=== PATIENT | female | born 1955 | race Caucasian/White ===

== ENCOUNTER 2021-03-13 12:38 | Outpatient (CLI) | payer MEDICARE, MEDICAID, SELFPAY ==
--- NOTE | ~2021-03-13 | XR_ITS ---
EXAMINATION: XR lg joint inject/asp w image DATE: 03/13/2021 13:49 INDICATION: Left frozen shoulder with chronic left shoulder pain and decreased range of motion TECHNIQUE: A time-out was performed to verify the patient's name, date of , and procedure to b e performed. The procedure including the risks, benefits, and alternatives was discussed with the pat ient. Risks discussed included bleeding and infection. The patient understood the risks and agreed to proceed. The skin overlying the rotator cuff interval of the left glenohumeral joint was prepped an d draped in usual sterile fashion. Anesthetic was administered with 1% lidocaine subcutaneously. A 22 G needle was advanced under fluoroscopic guidance into the joint. Injection of 1 mL of Omnipaque 240 confirmed intra-articular position of the needle. Subsequently, injectate consisting of 6 mL of a 2:1 mixture of 1% lidocaine: 40 mg/mL Depo-Medrol was instilled for a total dose of 80 mg Depo-Medr ol. Washout of contrast was seen confirming intra-articular administration. The needle was removed an d the entry site was cleaned and dressed. There were no immediate complications. Fluoroscopy exposur e time was 0.1 minutes. FINDINGS: Real-time fluoroscopy demonstrates the needle in the left glenohumeral joint. Patient's sandoval n prior to procedure:8/10. Patient's pain following the procedure: /. IMPRESSION: 1. Left glenohumeral injection of local anesthetic and steroid with decrease in the patient's present ing pain. Reviewed, dictated and finalized at location A. ISITION ANALYST IMPRESSION: 1. Left glenohumeral injection of local anesthetic and steroid with decrease in the patient's presenting pain.
== END 2021-03-13 12:39 | disposition home or self-care (01) ==
LOC: ANHIMG 12:44
PROVIDERS: Visit Provider Orthopaedic Surgery
DX: M75.02 Adhesive capsulitis of left shoulder (principal)
CPT/HCPCS: 20610; 77002; J1030; Q9966

== ENCOUNTER 2021-07-01 09:34 | Outpatient (CLI) | payer MEDICARE, MEDICAID, SELFPAY ==
--- NOTE | ~2021-07-01 | XR_ITS ---
. EXAMINATION: XR lg joint inject/asp w image DATE: 07/01/2021 10:36 INDICATION: Left frozen shoulder TECHNIQUE: A time-out was performed to verify the patient's name, date of , and procedure to b e performed. The procedure including the risks, benefits, and alternatives was discussed with the pat ient. Risks discussed included bleeding and infection. The patient understood the risks and agreed to proceed. The skin overlying the rotator cuff interval of the left glenohumeral joint was prepped an d draped in usual sterile fashion. Anesthetic was administered with 1% lidocaine subcutaneously. A 22 G needle was advanced under fluoroscopic guidance into the joint. Injection of 1 mL of Omnipaque 240 confirmed intra-articular position of the needle. Subsequently, injectate consisting of 4 mL a 3 :1 mixture of 1% lidocaine: 80 mg/mL Depo-Medrol for a total dose of 80 mg Depo-Medrol was instilled. Washout of contrast was seen confirming intra-articular administration. The needle was removed and t he entry site was cleaned and dressed. There were no immediate complications. Fluoroscopy exposure t toby was 0.1 minutes. The total number of images was 2. FINDINGS: Real-time fluoroscopy demonstrates the needle in the left glenohumeral joint. Patient's sandoval n prior to procedure:10. Patient's pain following the procedure: 08/08. IMPRESSION: 1. Left glenohumeral joint injection of local anesthetic and steroid with decrease in the patient's p resenting pain. Reviewed, dictated and finalized at location A. IMPRESSION: 1. Left glenohumeral joint injection of local anesthetic and steroid with decre ase in the patient's presenting pain.
== END 2021-07-01 09:35 | disposition home or self-care (01) ==
PROVIDERS: PCP Internal Medicine; Visit Provider Orthopaedic Surgery
DX: M25.512 Pain in left shoulder (principal)
CPT/HCPCS: 20610; 77002; J1040; Q9966

== ENCOUNTER 2021-09-18 13:23 | Outpatient (CLI) | payer MEDICARE, MEDICAID, SELFPAY ==
--- NOTE | ~2021-09-18 | XR_ITS ---
EXAMINATION: XR lg joint inject/asp w image DATE: 09/18/2021 14:02 INDICATION: Left frozen shoulder TECHNIQUE: A time-out was performed to verify the patient's name, date of , and procedure to b e performed. The procedure including the risks, benefits, and alternatives was discussed with the pat ient. Risks discussed included bleeding and infection. The patient understood the risks and agreed to proceed. The skin overlying the rotator cuff interval of the left glenohumeral joint was prepped an d draped in usual sterile fashion. Anesthetic was administered with 1% lidocaine subcutaneously. A 22 G needle was advanced under fluoroscopic guidance into the joint. Injection of a small amount of gas was used to confirm intra-articular position of the needle. Subsequently, injectate consisting o f 2 mL of a 4:1 mixture of 1% lidocaine: 80 mg/mL Depo-Medrol for a total dosage of 80 mg Depo-Medrol was instilled. The needle was removed and the entry site was cleaned and dressed. There were no imm ediate complications. Fluoroscopy exposure time was 0.1 minutes. The total number of images was 1. FINDINGS: Real-time fluoroscopy demonstrates the needle and gas in the left glenohumeral joint. Patie nt's pain prior to procedure:8/10. Patient's pain following the procedure: /. IMPRESSION: 1. Successful left glenohumeral joint injection of local anesthetic and steroid with decrease in the patient's presenting pain. Reviewed, dictated and finalized at location A.
== END 2021-09-18 13:24 | disposition home or self-care (01) ==
PROVIDERS: PCP Internal Medicine; Visit Provider Orthopaedic Surgery
DX: M75.02 Adhesive capsulitis of left shoulder (principal)
CPT/HCPCS: 20610; 77002; J1040

== ENCOUNTER 2022-08-26 12:55 | Outpatient (CLI) | payer MEDICARE, MEDICAID, SELFPAY ==
--- NOTE | ~2022-08-26 | XR_ITS ---
EXAMINATION: XR lg joint inject/asp w image DATE: 08/26/2022 14:10 INDICATION: Frozen left shoulder TECHNIQUE: A time-out was performed to verify the patient's name, date of , and procedure to b e performed. The procedure including the risks, benefits, and alternatives was discussed with the pat ient. Risks discussed included bleeding and infection. The patient understood the risks and agreed to proceed. The skin overlying the rotator cuff interval of the left glenohumeral joint was prepped an d draped in usual sterile fashion. Anesthetic was administered with 1% lidocaine subcutaneously. A 22 G needle was advanced under fluoroscopic guidance into the joint. Injection of 1 mL of Omnipaque 240 confirmed intra-articular position of the needle. Subsequently, injectate consisting of 4 mL of a 3:1 mixture of 1% lidocaine: 80 mg/mL Depo-Medrol was instilled. Washout of contrast was seen confi rming intra-articular administration. The needle was removed and the entry site was cleaned and dress ed. There were no immediate complications. Fluoroscopy exposure time was 0.1 minutes. The total numb er of images was 2. FINDINGS: Real-time fluoroscopy demonstrates the needle in the left glenohumeral joint. Patient's sandoval n prior to procedure:8/10. Patient's pain following the procedure: 0/10. IMPRESSION: 1. Successful left glenohumeral joint injection of local anesthetic and steroid with decrease in the patient's presenting pain. Reviewed, dictated and finalized at location A.
== END 2022-08-26 12:56 | disposition home or self-care (01) ==
LOC: ANHIMG 12:59
PROVIDERS: PCP Internal Medicine; Visit Provider Orthopaedic Surgery
DX: M75.02 Adhesive capsulitis of left shoulder (principal)
CPT/HCPCS: 20610; 77002; J1040; Q9966

== ENCOUNTER 2023-06-04 13:50 | Outpatient (CLI) | payer MEDICARE, MEDICAID, SELFPAY ==
--- NOTE | ~2023-06-04 | DEXA_ITS ---
Bone Density Report Name: VICKIE FAULKNER Age: 68 Sex: Female Ethnicity: White Date of : 1955 Indication: postmenopausal; screening for osteoporosis; height loss; history of glucocorticoids; hysterectomy; Referring Provider: GALA RANGEL Study: Bone densitometry was performed. Exam Date: June 04, 2023 Accession number: [id number] Bone Density: Region BMD T-score Z-score Classification AP Spine(L1, L2) 0.965 -0.1 1.7 Normal Femoral Neck (Left) 0.544 -2.7 -1.1 Osteoporosis Total Hip (Left) 0.698 -2.0 -0.6 Osteopenia Femoral Neck (Right) 0.618 -2.1 -0.4 Osteopenia Total Hip (Right) 0.716 -1.9 -0.5 Osteopenia Total Hip Mean 0.707 -2.0 -0.6 Osteopenia World Health Organization criteria for BMD impression classify patients as: Normal (T-score at or above -1.0), Osteopenia (T-score between -1.0 and -2.5), or Osteoporosis (T-score at or below -2.5). 10-year Fracture Risk: FRAX not reported because: Some T-score for Spine Total or Hip Total or Femoral Neck at or below -2.5 Treated for osteoporosis Clinical Information Provided by Patient: Has taken Glucocorticoids Is being treated for osteoporosis Has used the following medications: Vitamin D, Calcium Has the following medical conditions: Hysterectomy Patient maximum height was 64.5 Menopause Age: 48 No regular weight bearing exercise Does not regularly consume dairy products Drinks caffeinated beverages Onset of menses at age 13 Number of children 2 Impression: The patient has osteoporosis, based on the Left Femoral Neck T-score. The patient has risk factors, including: history of glucocorticoid therapy. Discussion: It is important to ask patients whether they are taking their medications and to encourage continued and appropriate compliance with their osteoporosis therapies to reduce fracture risk. It is also important to review their risk factors and encourage appropriate calcium and vitamin D intakes, exercise, fall prevention and other lifestyle measures. Follow-Up: Consider a repeat BMD and Vertebral Fracture Assessment (VFA) exam in 2 years or sooner if medically necessary, to reassess this patient's status. Reported by: JUAN on 06/04/2023 3:06:00 PM. Reviewed, dictated and finalized at location AEileen MILLER
== END 2023-06-04 13:51 | disposition home or self-care (01) ==
LOC: ANHIMG 13:57
PROVIDERS: PCP Internal Medicine; Visit Provider Obstetrics & Gynecology Gynecology
DX: Z78.0 Asymptomatic menopausal state (principal); M81.0 Age-related osteoporosis without current pathological fracture; M85.852 Other specified disorders of bone density and structure, left thigh; M85.851 Other specified disorders of bone density and structure, right thigh
CPT/HCPCS: 77080

== ENCOUNTER 2024-01-07 13:58 | Outpatient (CLI) | payer MEDICARE, MEDICAID, SELFPAY ==
--- NOTE | ~2024-01-07 | CT_ITS ---
CT Scan of the Chest without Contrast: Clinical Indication: Neurogenic thoracic outlet syndrome Technique: Contiguous sections were acquired throughout the chest without intravenous contrast. Dose reduction technique was used on this scan by utilizing automated exposure control and iterative recon struction technique. The dose-length product (DLP) was 128.20 mGy-cm. Findings: There is no evidence of any significant mediastinal, hilar or axillary lymphadenopathy. There is ning re coronary artery calcifications, with probable prior CABG. There is no evidence of pleural or pericardial effusion. The lungs are clear. No pulmonary nodules or infiltrates are noted. Images through the upper abdomen reveal no abnormalities. Impression: No acute abnormality. Clear lungs. Prior CABG. Reviewed, dictated and finalized at location . CLING ASSISTANT Impression: No acute abnormality. Clear lungs. Prior CABG.
== END 2024-01-07 13:59 | disposition home or self-care (01) ==
PROVIDERS: PCP Internal Medicine; Visit Provider Internal Medicine
DX: G54.0 Brachial plexus disorders (principal)
CPT/HCPCS: 71250

== ENCOUNTER 2024-03-09 12:38 | Outpatient (CLI) | payer MEDICARE, MEDICAID, SELFPAY ==
--- NOTE | 2024-03-09 15:00 | NEURO_ITS ---
Clinical note: Patient is 68 years old with history of onset of paresthesias in her right upper limb following an injection in her right forearm 3 months ago. On a brief neurological examination no focal muscle wasting or fasciculations were seen. The results of the study are given below. Summary of findings 1. Right median and ulnar motor distal latency amplitude and conduction velocity were normal limits. 2. Right median and ulnar and radial sensory distal latencies amplitude and conduction velocity normal limits. 3. Right median antebrachial cutaneous sensory distal latency was normal however amplitude was mildly decreased. Right lateral antebrachial cutaneous sensory could not be obtained 3. EMG examination performed various muscles examined in the right upper limb from C5-T1 distribution which did not show any deep duration changes. Motor unit amplitude and duration and have recruitment pattern appear within normal limits. Impression EMG and nerve can study upper limb are considered essentially within acceptable normal limits. The studies on the right lateral and medial antebrachial cutaneous appear to be of limited significance since these can be technically difficult and should be compared with the left side for further evaluation. Ultrasound guided nerve conduction studies for upper limb may be helpful if clinically relevant Sung Prasad M.D,. Neurology Nerve Conduction Studies Motor Nerve Results ? Latency Amplitude F-Lat Segment Distance CV Comment Site (ms) (mV) (ms) (cm) (m/s) Left Fibular (EDB) Motor Ankle 4.9 1.75 Bel Fib Head 13.3 1.73 Bel Fib Head-Ankle 290 35 Pop Fossa 15.5 1.44 Pop Fossa-Bel Fib Head 85 39 Right Fibular (EDB) Motor Ankle 4.8 2.4 Bel Fib Head 11.9 1.82 Bel Fib Head-Ankle 275 39 Pop Fossa 14.1 2.0 Pop Fossa-Bel Fib Head 85 39 Left Tibial (AHB) Motor Ankle 6.0 1.02 Knee 14.6 0.28 Knee-Ankle 400 47 Right Tibial (AHB) Motor Ankle 5.3 1.59 Knee 17.1 0.78 Knee-Ankle 410 35 Motor Segments ? Delta-O Distance CV Segment (ms) (cm) (m/s) Norm Left Fibular (EDB) Motor Bel Fib Head-Ankle 8.4 290 35 ?> 38 Pop Fossa-Bel Fib Head 2.2 85 39 ?> 42 Right Fibular (EDB) Motor Bel Fib Head-Ankle 7.1 275 39 ?> 38 Pop Fossa-Bel Fib Head 2.2 85 39 ?> 42 Left Tibial (AHB) Motor Knee-Ankle 8.6 400 47 ?> 39 Right Tibial (AHB) Motor Knee-Ankle 11.8 410 35 ?> 39 Sensory Nerve Results ? Latency (Peak) Amplitude (P-P) Segment Distance CV Comment Site (ms) (?V) (cm) (m/s) Right Medial Plantar (Ortho) Sensory Great Toe-Med Mall NR NR Great Toe-Med Mall 110 NR Left Sural Sensory Calf-Lat Mall NR NR Calf-Lat Mall 120 NR Right Sural Sensory Calf-Lat Mall 4.5 4 Calf-Lat Mall 120 27 Sensory Segments ? Delta-P Distance CV (Peak) Segment (ms) (cm) (m/s) Norm Right Medial Plantar (Ortho) Sensory Great Toe-Med Mall 110 NR - Left Sural Sensory Calf-Lat Mall 120 NR ?> 35 Right Sural Sensory Calf-Lat Mall 120 27 ?> 35 H-Reflex Results ? M-Lat H Lat H Peak-Peak Amp M Peak-Peak Amp H-M Lat Site (ms) (ms) mV mV (ms) Left Tibial H-Reflex Pop Fossa - NR - - NR Right Tibial H-Reflex Pop Fossa 3.7 71.3 - - 67.6 Electromyography ?Side Muscle Nerve Ins Act Fibs Psw Amp Dur Recrt Comment Right BicepsFemS Sciatic Nml Nml Nml Nml Nml Nml Right Semimembranosus Sciatic Nml Nml Nml Incr >12ms +1 Right AntTibialis Dp Br Fibular Nml Nml Nml Incr >12ms +3 Right Gastroc Tibial Nml Nml Nml Incr >12ms +2 Right VastusMed Femoral Nml Nml Nml Nml Nml Nml Right RectFemoris Femoral Nml Nml Nml Nml Nml Nml Right TensorFascLat SupGluteal Nml Nml Nml Incr >12ms +1 Left BicepsFemS Sciatic Nml Nml Nml Nml >12ms +1 Left Semimembranosus Sciatic Nml Nml Nml Incr >12ms +1 Left AntTibialis Dp Br Fibular Nml Nml Nml Incr >12ms +2 Left Gastroc Tibial Nml Nml Nml Nml Nml Nml Poor Effort Left VastusMed Femoral Nml Nml Nml Nml Nml Nml Left L4 Parasp Rami Nml Nml Nml Nml Nml Nml Right L4 Parasp Rami Nml Nml Nml Nml Nml Nml Left L5 Parasp Rami Nml Nml Nml Nml Nml Nml Right L5 Parasp Rami Nml Nml Nml Nml Nml Nml MTDD
== END 2024-03-09 12:39 | disposition home or self-care (01) ==
LOC: ANHNEURO 12:41
PROVIDERS: PCP Internal Medicine; Visit Provider Internal Medicine
DX: G54.0 Brachial plexus disorders (principal)
CPT/HCPCS: 95886; 95909

== ENCOUNTER 2024-06-29 13:03 | Outpatient (CLI) | payer MEDICARE, MEDICAID, SELFPAY ==
--- NOTE | ~2024-06-29 | US_ITS ---
EXAMINATION: US thyroid DATE: 06/29/2024 13:57 INDICATION: Difficulty swallowing TECHNIQUE: Multiple ultrasound images of the thyroid were obtained. COMPARISON: None. FINDINGS: The right thyroid lobe measures 5.6 x 1.9 x 1.6 cm. The left thyroid lobe measures 5.1 x 1.8 x 1.7 c m. There are multiple thyroid nodules. These include a couple similar appearing mixed cystic and hyp oechoic solid nodules with lobular margins and without echogenic foci (TI-RADS 4, moderately suspicio us , FNA if >=1.5 cm, annual followup is >=1 cm) measuring 1.5 cm in the right thyroid lobe, 1.3 cm t he left thyroid lobe is 1.3 cm the thyroid isthmus. 1.4 cm almost entirely cystic TI RADS 1 nodule in the left thyroid lobe. 9 mm solid wider than tall very hypoechoic nodule with lobular margins and co arse calcification in the right thyroid lobe (TI-RADS 5, highly suspicious , FNA if >=1.0 cm, annual followup is >0.5 cm). 9 mm mixed solid and cystic nodule with smooth margins and echogenic foci with large comet tail artifact (TI-RADS 3, mildly suspicious , FNA if >=2.5 cm, annual followup is >=1.5 c m) in the right thyroid lobe. On cine imaging there are several additional smaller thyroid nodule of each category. IMPRESSION: 1. Multinodular goiter as detailed above with no nodules currently meeting criteria for biopsy but fo r which annual ultrasound follow-up would be recommended. Reviewed, dictated and finalized at location A. IMPRESSION: 1. Multinodular goiter as detailed above with no nodules currently meeting crit eria for biopsy but for which annual ultrasound follow-up would be recommended.
--- OUTSIDE RECORDS SUMMARY | 2024-06-29 14:05 | XMS_ITS | Referral Summary ---
Author Organization [facility] Address [address] [place] [address] Care Team Providers Care Flight Software Test Engineer Name Role Phone Travon Lopez MD Unavailable Vikas Nolasco MD Unavailable Vlad Laird MD Primary Care Provider Allergies Active Allergy Reactions Criticality Noted Date Comments Atorvastatin Muscle pain,Other (S ee comments) Medium 03/18/2017 Pitavastatin Muscle pain Medium 01/04/2020 Beehijh-Mbt-Kxp Reductase Inhibitors Other (See comments),Muscle pain Medium 01/13/2021 Muscle pain Medications lisinopriL (PRINIVIL,ZESTR IL) 20 mg tablet Take 1 tablet (20 mg total) by mouth 2 (two) times a day 09/10/2016 Active docusate sodium (COLACE) 100 mg capsule Take 1 capsule (100 mg total) by mouth 2 (two) times a day Active aspirin 81 mg chewable tablet Take 1 tablet (81 mg total) by mouth 2 (two) times a day Active ALPRAZolam (XANAX) 1 mg tablet Take 1 tablet (1 mg total) by mouth 3 (three) times a day as needed for anxiety or sleep Active denosumab (PROLIA SUBQ) Inject under the skin every 6 (six) months Active HYDROcodone-heladio taminophen (NORCO) 5-325 mg per tablet Take 1 tablet by mouth 4 (four) times a day as needed 01/08/2021 Active calcium carbonate (OS-CHARMAINE) 1,500 mg (600 mg elemental) tablet Take 1 tablet (1,500 mg total) by mouth daily 03/01/1969 Active multivitamin tablet Take 1 tablet by mouth daily 03/01/1969 Active oxybutynin (DITROPAN) 5 mg tablet Take 0.5 tablets (2.5 mg total) by mouth 2 (two) times a day 02/16/2021 Active ergocalciferol (VITAMIN D) 50,000 unit capsule Take 1 capsule (50,000 Units total) by mouth once a week Take on Tuesdays Active amLODIPine (NORVASC) 5 mg tablet Take 1 tablet (5 mg total) by mouth daily 06/09/2022 Active inclisiran (Leqvio) 284 mg/1.5 mL syringe Inject 1.5 mL (284 mg total) under the skin once 03/01/1969 Active azithromycin (ZITHROMAX) 250 mg tablet Take 1-2 tablets (250-500 mg total) by mouth daily 500 mg one Day 1 followed by 250 mg for 4 days. 11/23/2023 Active benzonatate (TESSALON) 200 mg capsule Take 1 capsule (200 mg total) by mouth 3 (three) times a day as needed for cough Active Repatha SureClick 140 mg/mL pen injector Inject 1 mL (140 mg total) under the skin every 14 (fourteen) days 09/10/2023 Active Active Problems Problem Noted Date Diagnosed Date Weakness 11/24/2023 Thyroid nodule 12/21/2022 Assessment & Plan (12/21/2022 9:36 AM CDT): Multiple thyroid nodules noted in OSH US thyroid, including nodule on the left thyroid that was classified TI-RADS 4. Clinically euthyroid. TSH 1.1 and FT4 1.25, both within normal limits. Will schedule her for FNA of L thyroid nodule within 6 months. CAD (coronary artery disease) 02/27/2021 Overview (02/27/2021): Added automatically from request for surgery [id number] Moderate malnutrition 02/06/2021 Abnormal cardiovascular stress test 12/27/2020 Overview (12/27/2020): Added automatically from request for surgery [id number] Social History Tobacco Use Types Packs/Day Years Used Date Smoking Tobacco: Former Cigarettes Q uit: 2016 Smokeless Tobacco: Never Tobacco Cessation:Counseling Given: Not Answered AUDIT-C Answer Date Recorded Q1: How often do you have a drink containing alc ohol? Monthly or less 07/13/2022 Q2: How many drinks containi ng alcohol do you have on a typical day when you are drinking? 1 or 2 07/13/2022 Q3: How often do you have si x or more drinks on one occasion? Never 07/13/2022 PHQ-2 Answer Date Recorded PHQ-2 Total Score (If total score is 3 or more points, staff should administer the PHQ-9) 0 11/24/2023 Personal Safety Answer Date Recorded Have you ever been in or are you currently in a harmful physical or emotional relationship or is someone making you feel afraid or unsafe? 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 Gender Identity Not on file Sexual Orientation Not on file Last Filed Vital Signs Vital Sign Reading Time Taken Comments Blood Pressure 150/65 11/25/2023 12:35 PM CDT Pulse 60 11/25/2023 12:35 PM CDT Temperature 36.7 C (98 F) 11/25/2023 12:35 PM CDT Respiratory Rate 18 11/25/2023 12:35 PM CDT Oxygen Saturation 94% 11/25/2023 12:35 PM CDT Inhaled Oxygen Concentration - - Weight 49.9 kg (110 lb) 11/24/2023 10:45 PM CDT Height 162.6 cm (5' 4 ) 11/24/2023 10:45 PM CDT Body Mass Index 18.88 11/24/2023 10:45 PM CDT Plan of Treatment Not on file Medical Devices Implanted Type Area South Asian History Professor Device Identifier Shelf Expiration Date Model / Serial / Lot [facility] [id number] Cordis Palmaz Debbie 8mm 6/6.5/7fr 36mm 80cm Delivery System Latex Free - [id number] Implanted:Qty: 1 on 01/14/2021 by Travon Lopez MD at [facility] 02/28/2021 [id number] / / [employer] [id number] Synergy Xd Monorail 2.25mm 38mm 144cm Delivery System 1 Access - [id number] Implanted:Qty: 1 on 04/15/2021 by Travon Lopez MD at [facility] [employer] 09/25/2022 [id number] / / [employer] [id number] Synergy 3mm 28mm 144cm Radiopaque 1 Access Port Inflation Lumen - [id number] Implanted:Qty: 1 on 04/15/2021 by Travon Lopez MD at [facility] [employer] 10/10/2021 [id number] / / Insurance MEDICARE IDPA IDPA [facility] MEDICARE ADVANTAGE MEDICARE IDVA UHC MEDICARE ADVANTAGE Advance Directives For more information, please contact: [phone] Documents on File Type Date Recorded Patient Ob Gyn Physician Assistant Expl anation ADVANCE DIRECTIVE 12/30/2015 12:00 AM POW ER OF WEATHERIZATION OPERATIONS MANAGER FINANCIAL/MEDICAL * Full Code (Latest Code Status on File) Date Activated Date Inactivated Comments 11/24/2023 10:50 PM 11/25/2023 10:12 PM * Full Code Date Activated Date Inactivated Comments 11/24/2023 12:44 PM 11/24/2023 10:50 PM * Full Code Date Activated Date Inactivated Comments 04/15/2021 11:11 AM 04/16/2021 7:16 PM * Full Code Date Activated Date Inactivated Comments 02/05/2021 3:49 PM 02/06/2021 7:52 PM * Full Code Date Activated Date Inactivated Comments 01/14/2021 12:20 PM 01/14/2021 11:06 PM Care Teams Flight Software Test Engineer Relationship Specialty Start Date End Date Vlad Laird MD [address] [facility] [address] [facility] [address] [place] [address] PCP - General Internal Medicine 11/25/23 Travon Lopez MD [address] [place] [address] Consulting Physician Cardiovascular Disease 02/06/21 Vikas Nolasco MD [address] [place] [address] Consulting Physician Pain Management 07/07/22
--- OUTSIDE RECORDS SUMMARY | 2024-06-29 14:06 | XMS_ITS | Continuity of Care Document ---
Author Organization [facility] [place] Address [address] [place] [address] Phone Care Team Providers Care Cone Chocolate Dipper Name Role Phone Arellano OD, Vicente Unavailable Unavailable Procedures Procedure Date CL Replacement - Vistakon Disp W/BW Soft [facility] No Charge Laser Post Ops Office/outpatient Visit, Est No Charge Contact Lens Check Office/outpatient Visit, Est Office/outpatient Visit, Est No Charge Contact Lens Check CL Replacement - Vistakon Disp W/BW Soft [facility] Eye Exam & Treatment Refraction CL Replacement - Vistakon Disp W/BW Soft [facility] Eye Exam & Treatment Refraction Advance Directives Directive Yes / No Effective Date File Name No Information Encounters Encounter Description Practice Location Reason(s) For Visit Diagnoses Date Provider Providers Copied on Encounter Merged with [facility], [address], [place], [place], [id number], [place] tel:[phone] [facility] No Information Oct- 3-200 9 Arellano OD Vicente. [address] , [address], [place], [address], [place]. tel:[phone] Merged with [facility], [address], [place], [place], [id number], [place] tel:[phone] [facility] No Information Sep-0 8-200 9 Arellano OD Vicente. [address] , [address], [place], [address], [place]. tel:[phone] [facility], [address], [place], [place], [id number], [place] tel:[phone] [facility] No Information Galindo-2 8-200 9 Krishnasamy Raymond. [address], [place], [address], [place]. tel:[phone] [facility], [address] [place] [address] [address], [place], [place], [address], [place] tel:[phone] [facility] No Information Galindo-1 4-200 9 Arellano OD Vicente. [address] , [address], [place], [place], [facility], [place]. tel:[phone] Office/outpat ient Visit, [facility], [address] [place] [address] [address], [place], [place], [address], [place] tel:[phone] [facility] No Information Andrey-2 0-200 9 Arellano OD Vicente. [address] , [address], [place], [address], [place]. tel:[phone] Office/outpat ient Visit, [facility], [address] [place] [address] [address], [place], [place], [address], [place] tel:[phone] [facility] No Information May-3 0-200 9 Arellano OD Vicente. [address] , [address], [place], [address], [place]. tel:[phone] [facility], [address], [place], [place], [address], [place] tel:[phone] [facility] No Information May-2 2-200 9 Arellano OD Vicente. [address] , [address], [place], [address], [place]. tel:[phone] Merged with [facility], [address] [place] [address] [address], [place], [place], [id number], tel:[phone] [facility] No Information 4-200 9 Arellano OD Vicente. [address], [address], [place], [place], [facility], [place]. tel:[phone] Merged with [facility], [address] [place] [address] [address], [place], [place], [address], tel:[phone] [facility] No Information 8-200 9 Arellano OD Vicente. [facility], [address], [place], [place], [facility], [place]. tel:[phone] Merged with [facility], [address] [place] [address] [address], [place], [place], [address], [place] tel:[phone] [facility] No Information 2-200 8 Arellano OD Vicente. [facility], [address], [place], [address], [place]. tel:[phone] Merged with [facility], [address] [place] [address] [address], [place], [place], [address], tel:[phone] [facility] No Information 0-200 8 Arellano OD Vicente. [facility] , [address], [place], [address], [place]. tel:[phone] Family History Family Member Type Diagnosis Age At Onset No Information Payers Payer name Insurance type Covered alliance party ID Authoriza tion(s) No Information Social History Type Description Quantity Date Captured Comments Sex Female Smoking Status No Information Chief Complaint And Reason For Visit No Information Reason For Referral Reason For Referral No Information History Of Present Illness Encounter Date Complaint History Of Prese nt Illness No Information Functional Status Date Functional Assessmen t No Information Instructions Date Instruction Additional Infor mation No Information Assessments Type Assessment Date No Information Patient Care Teams Name Effective Dates (start - stop) Status Members No Information
--- OUTSIDE RECORDS SUMMARY | 2024-06-29 14:06 | XMS_ITS | Clinical Summary ---
Author Organization [facility] Address [address] [place] [address] Care Team Providers Care Photographic Specialist Name Role Phone Travon Lopez MD Unavailable Vikas Nolasco MD Unavailable Vlad Laird MD Primary Care Provider Allergies Active Allergy Reactions Criticality Noted Date Comments Atorvastatin Muscle pain,Other (S ee comments) Medium 03/18/2017 Pitavastatin Muscle pain Medium 01/04/2020 Weydrgy-Sys-Ljo Reductase Inhibitors Other (See comments),Muscle pain Medium [...] (02/27/2021): Added automatically from request for surgery [id number] Moderate malnutrition 02/06/2021 Abnormal cardiovascular stress test 12/27/2020 Overview (12/27/2020): Added automatically from request for surgery [id number] Surgical History Surgery Date Site/Laterality Comments CAROTID ENARTERECTOMYY SECTION x's 2 ARTERY SURGERY CORONARY ARTERY BYPASS GRAFT HYSTERECTOMY CHOLECYSTECTOMY NOSE SURGERY fracture DILATION AND CURETTAGE OF UTERUS ILIAC VEIN ANGIOPLASTY / STENTING 01/14/2021 Medical History Medical History Date Comments CAD (coronary artery disease) Hypertension Chest pain Thyroid nodule Anxiety Depression Abnormal cardiovascular stress test 12/27/2020 HLD (hyperlipidemia) AK (myocardial infarction) (HCC) Family History Medical History Relation Name Comments Heart attack Father Heart disease Maternal Grandfather Heart disease Maternal Grandmother Diabetes Mother Pancreatic cancer Mother Heart disease Paternal Grandfather Leukemia Paternal Grandmother Relation Name Status Comments Father Maternal Grandfather Maternal Grandmother Mother Paternal Grandfather Paternal Grandmother Social History Tobacco Use Types Packs/Day Years [...] on file 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 Gender Identity Not on file Sexual Orientation Not on file Obstetrics History Last Filed Vital Signs Vital Sign Reading [...] 11/24/2023 10:45 PM CDT Plan of Treatment Health Maintenance Due Date Last Done Comments Breast Cancer Screening-Mammogram 1955 Colon Cancer Screening-Colonoscopy 1955 Hepatitis C Screening 1955 DTaP/Tdap/Td Vaccine (1 - Tdap) 05/23/1966 Hepatitis B Screening 05/23/1973 Zoster Vaccine (1 of 2) 05/23/2005 Well Visit 65+ 05/23/2020 Covid-19 Vaccine (3 - ) 10/31/202307/2020, 05/10/2020 Influenza Vaccine (#1) 2023 Depression Screening 11/23/2024 11/24/2023, 11/24/19 Fall Risk Assessment 11/24/2024 11/25/2023 Osteoporosis Screening-Bone Density Scan 06/10/2025 06/11/2023 Pneumococcal vaccine 65+ Completed 03/09/2022, 09/30 Medical Devices Implanted Type Area Meter Technician Device Identifier Shelf Expiration Date Model / Serial / Lot [facility] [id number] Cordis Palmaz Debbie 8mm 6/6.5/7fr 36mm 80cm Delivery System Latex Free - [id number] Implanted:Qty: 1 on 01/14/2021 by Travon Lopez MD at [facility] 02/28/2021 [id number] / / [employer] [id number] Synergy Xd Monorail 2.25mm 38mm 144cm Delivery System 1 Access - [id number] Implanted:Qty: 1 on 04/15/2021 by Travon Lopez MD at [facility] [employer] 09/25/2022 [id number] / / [employer] [id number] Synergy 3mm 28mm 144cm Radiopaque 1 Access Port Inflation Lumen - [id number] Implanted:Qty: 1 on 04/15/2021 by Travon Lopez MD at [facility] [employer] [facility] 10/10/2021 [id number] / / Insurance MEDICARE IDTX [facility] MEDIC[facility] Address: [address] [address] [place] [address] MEDICARE [facility] MEDICARE [facility] Address: [address] [address] [place] [address] Advance Directives For more information, please contact: [phone] Documents on File Type Date Recorded 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
--- OUTSIDE RECORDS SUMMARY | 2024-06-29 14:07 | XMS_ITS | CONTINUITY OF CARE DOCUMENT ---
Author Name makenzie, makenzie Address Unknown Organization [facility] Address [address] [address] [place] [address] Phone [phone] Care Team Providers Care Marketing Finance Manager Name Role Phone Jessica BULLOCK, Travon Unavailable RICHIE LYON MD Unavailable [phone] RICHIE LYON MD Unavailable PROBLEMS Condition Status Date Provider Notes Groin pain active Lon Marie Frequent premature ventricul ar beats active Candi Ventimiglia [facility] Cardiology examination active Candiayo Pimentelm iglia [employer] [facility] [employer] Patient has full dentures active Candi Lozada timiglia [employer] [employer] Frozen left shoulder active Travon Lopez MD Familial hypercholesterolemia active Travon Lopez MD Chest pain-type to be determined active Laxmi Lopez MD Weight loss active Travon Lopez MD Thyroid nodule active Travon Lopez MD CAD s/p CABG active Travon Lopez MD Myalgia active Travon Lopez MD Hypercholesterolemia, LDL 268 active Travon Lopez MD Carotid artery disease - s/p L CEA active Travon Lopez MD L Subclavian artery occlusion active Travon Lopez MD Fatigue active Travon Lopez MD Tobacco use, quit active Travon Lpoez MD HTN essential active Travon Lopez MD PVD with claudication active Travon Juarez Other symptoms involving cardiovascular system completed - Travon Lopez MD Family History of Hyperlipidemia: completed - Travon Lopez MD Family History of Hypertension: completed - Us pilar Lopez MD ENCOUNTERS Date Type Provider Location Encounter Diag nosis - In-person encounter Office Visit Travon Lopez MD [facility] - In-person encounter Office Visit Travon Lopez MD [facility] - In-person encounter Office Visit Travon Lopez MD [facility] Frequent premature ventricular beats - In-person encounter Office Visit Travon Lopez MD [facility] Cardiology examination - In-person encounter Office Visit Travon Lopez MD [facility] - In-person encounter Office Visit Travon Lopez MD [facility] Patient has full dentures - In-person encounter Office Visit Travon Lopez MD [facility] - In-person encounter Office Visit Travon Lopez MD [facility] - In-person encounter Office Visit Travon Lopez MD [facility] - In-person encounter Office Visit Travon Lopez MD [facility] - In-person encounter Office Visit Travon Lopez MD [facility] - In-person encounter Office Visit Travon Lopez MD [facility] - In-person encounter Office Visit Travon Lopez MD [facility] Frozen left shoulder - In-person encounter Office Visit Travon Lopez MD [facility] - In-person encounter Office Visit Travon Lopez MD [facility] - In-person encounter Office Visit Travon Lopez MD [facility] - In-person encounter Office Visit Travon Lopez MD [facility] - In-person encounter Office Visit Travon Lopez MD [facility] Familial hypercholesterolemia - In-person encounter Office Visit Travon Lopez MD [facility] Chest pain-type to be determined - In-person encounter Office Visit Travon Lopez MD [facility] Weight loss - In-person encounter Office Visit Travon Lopez MD [facility] Thyroid nodule - In-person encounter Office Visit Travon Lopez MD [facility] Hypercholesterolemia, LDL 268 - In-person encounter Office Visit Travon Lopez MD [facility] - In-person encounter Office Visit Travon Lopez MD [facility] - In-person encounter Office Visit Travon Lopez MD [facility] - In-person encounter Office Visit Travon Lopez MD [facility] Family History of Hypertension:Family History of Hyperlipidemia:Other symptoms involving cardiovascular system - In-person encounter Office Visit Travon Lopez MD [facility] Carotid artery disease - s/p L CEA - In-person encounter Office Visit Travon Lopez MD [facility] CAD s/p CABG - In-person encounter Office Visit Travon Lopez MD [facility] - In-person encounter Office Visit Travon Lopez MD [facility] - In-person encounter Office Visit Travon Lopez MD [facility] Tobacco use, quit - In-person encounter Office Visit Travon Lopez MD [facility] Myalgia - In-person encounter Office Visit Travon Lopez MD [facility] - In-person encounter Office Visit Travon Lopez MD [facility] L Subclavian artery occlusionCarotid artery disease - s/p L CEA - In-person encounter Office Visit Travon Lopez MD [facility] PVD with claudicationHTN essentialTobacco use, quitFatigueL Subclavian artery occlusion VITAL SIGNS Date Observation Value Provider Body Mass Index (Ratio) 17.33 kg/m2 Thalia Lopez MD blood pressure, diastolic 79 mm[Hg] Armida Moran blood pressure, systolic 145 mm[Hg] Faina Moran oxygen saturation, oximetry 97 % Ruby Moran pulse rate 56 /min Ruby Moran respiratory rate E&M 12 /min Ruby Moran weight E&M 101 [lb_av] Ruby Moran height E&M 64 [in_i] Ruby Moran blood pressure, cuff size regular Armida Moran Body Mass Index (Ratio) 17.16 kg/m2 Thalia Lopez MD blood pressure, diastolic 90 mm[Hg] Li nkLogic blood pressure, systolic 155 mm[Hg] Yuliana [facility]Logic blood pressure, diastolic 90 mm[Hg] Balta Herring blood pressure, systolic 155 mm[Hg] Yudelka Herring pulse rate 63 /min Tisha segura oxygen saturation, oximetry 99 % Tisha Herring weight E&M 100 [lb_av] Tisha Mcelroy s blood pressure, cuff size regular Br ally Herring height E&M 64 [in_i] Tisha Mcelroy s Body Mass Index (Ratio) 18.54 kg/m2 Thalia Lopez MD blood pressure, diastolic 74 mm[Hg] Abdelrahman yla [facility] blood pressure, systolic 147 mm[Hg] Lyubov pal [facility] oxygen saturation, oximetry 99 % Naa [facility] pulse rate 56 /min Naa [facility] weight E&M 108 [lb_av] Naa [facility] height E&M 64 [in_i] Naa [facility] blood pressure, diastolic 72 mm[Hg] Arlen [facility] blood pressure, systolic 128 mm[Hg] Yuliana [facility] Body Mass Index (Ratio) 18.36 kg/m2 Thalia Lopez MD blood pressure, diastolic 72 mm[Hg] Arlen [facility] blood pressure, systolic 128 mm[Hg] Yuliana [facility] blood pressure, cuff size small Ta suleman Ford blood pressure, diastolic 72 mm[Hg] Ta bitha Ford blood pressure, systolic 128 mm[Hg] Tab itha Ford pulse rate 85 /min Shrutiroyal Ford oxygen saturation, oximetry 99 % Shruti Ford respiratory rate E&M 16 /min Shruti Ford weight E&M 107 [lb_av] Shruti Ford height E&M 64 [in_i] Shruti [place] Body Mass Index (Ratio) 18.71 kg/m2 Thalia Lopez MD blood pressure, cuff size regular Ta suleman Ford blood pressure, diastolic 64 mm[Hg] Lex shell Ford blood pressure, systolic 124 mm[Hg] Oliver phillips [place] oxygen saturation, oximetry 98 % Shruti [place] respiratory rate E&M 12 /min Shruti Monte[place] pulse rate 69 /min Shruti [place] weight E&M 109 [lb_av] Shruti [place] height E&M 64 [in_i] Shruti Monte[place] Body Mass Index (Ratio) 18.88 kg/m2 Thalia Lopez MD blood pressure, cuff size small Vi pin [facility] blood pressure, diastolic 82 mm[Hg] Vi [facility] blood pressure, systolic 133 mm[Hg] [facility] oxygen saturation, oximetry 97 % [facility] respiratory rate E&M 16 /min [facility] pulse rate 62 /min [facility] weight E&M 110 [lb_av] [facility] height E&M 64 [in_i] [facility] Body Mass Index (Ratio) 19.22 kg/m2 Thalia Lopez MD blood pressure, cuff size regular Do quin Franklin blood pressure, diastolic 76 mm[Hg] Do nnell Franklin blood pressure, systolic 152 mm[Hg] Aldo Reid oxygen saturation, oximetry 94 % Nathan Reid respiratory rate E&M 20 /min Nathan Reid pulse rate 49 /min Nathan Reid weight E&M 112 [lb_av] Nathan Reid height E&M 64 [in_i] Nathna Franklin Body Mass Index (Ratio) 18.54 kg/m2 Thalia Lopez MD blood pressure, diastolic 70 mm[Hg] Li nkLogic blood pressure, systolic 124 mm[Hg] Yuliana kLogic pulse rate 68 /min Jared y blood pressure, cuff size regular Ja rret blood pressure, diastolic 70 mm[Hg] Ja rret blood pressure, systolic 124 mm[Hg] Jar ret respiratory rate E&M 12 /min Jared oxygen saturation, oximetry 99 % Jared weight E&M 108 [lb_av] Jared height E&M 64 [in_i] Jared Body Mass Index (Ratio) 18.71 kg/m2 Thalia Lopez MD blood pressure, cuff size small Ja rret blood pressure, diastolic 96 mm[Hg] Ja rret blood pressure, systolic 140 mm[Hg] Jar ret pulse rate 70 /min Jared oxygen saturation, oximetry 100 % Jared respiratory rate E&M 12 /min Jared weight E&M 109 [lb_av] Jared height E&M 64 [in_i] Jared y Body Mass Index (Ratio) 18.19 kg/m2 Thalia Lopez MD blood pressure, cuff size small Ja rret blood pressure, diastolic 77 mm[Hg] Mac pablo blood pressure, systolic 117 mm[Hg] Holly stanton pulse rate 52 /min Jared oxygen saturation, oximetry 95 % Jared respiratory rate E&M 12 /min Jared weight E&M 106 [lb_av] Jared height E&M 64 [in_i] Jared y Body Mass Index (Ratio) 17.33 kg/m2 Thalia Lopez MD blood pressure, diastolic 62 mm[Hg] Li nkLogic blood pressure, systolic 128 mm[Hg] Yuliana kLogic blood pressure, diastolic 62 mm[Hg] Vt karthikeyan Louis blood pressure, systolic 128 mm[Hg] Blair katelyn Louis oxygen saturation, oximetry 98 % Jen Louis pulse rate 55 /min Jen juarez weight E&M 101 [lb_av] Jen juarez respiratory rate E&M 16 /min Dary Louis blood pressure, cuff size 16 Mi karthikeyan Louis height E&M 64 [in_i] Jen juarez Body Mass Index (Ratio) 17.85 kg/m2 Thalia Lopez MD blood pressure, diastolic 82 mm[Hg] Ri karthikeyan Justin blood pressure, systolic 143 mm[Hg] Nakul helcathryn Justin blood pressure, cuff size regular Ri karthikeyan Justin oxygen saturation, oximetry 98 % Selena Justin respiratory rate E&M 16 /min Jesus Justin pulse rate 52 /min Selena parker weight E&M 104 [lb_av] Selena Wilkes son height E&M 64 [in_i] Selena parker Body Mass Index (Ratio) 17.33 kg/m2 Thalia Lopez MD blood pressure, diastolic 81 mm[Hg] Sa ra Dumont blood pressure, systolic 150 mm[Hg] Sergey a Dumont oxygen saturation, oximetry 98 % Lizz Dumont respiratory rate E&M 18 /min Lizz Si ms pulse rate 61 /min Lizz Dumont blood pressure, cuff size regular Sa ra Dumont weight E&M 101 [lb_av] Lizz Dumont height E&M 64 [in_i] Lizz Dumont Body Mass Index (Ratio) 17.85 kg/m2 Thalia Lopez MD blood pressure, cuff size regular Ka jorge [place] blood pressure, diastolic 79 mm[Hg] Ka jorge [place] blood pressure, systolic 132 mm[Hg] Jeana rice Cristobal oxygen saturation, oximetry 99 % Chelsie Cristobal respiratory rate E&M 15 /min Chelsie [place] pulse rate 55 /min Chelsie [place] weight E&M 104 [lb_av] Chelsie [place] height E&M 64 [in_i] Chelsie [place] Body Mass Index (Ratio) 17.16 kg/m2 Thalia Lopez MD blood pressure, diastolic 63 mm[Hg] Sa ra Dumont blood pressure, systolic 129 mm[Hg] Sergey a Dumont oxygen saturation, oximetry 99 % Lizz Dumont respiratory rate E&M 18 /min Lizz Si ms pulse rate 58 /min Lizz Dumont blood pressure, cuff size regular Sa ra Dumont weight E&M 100 [lb_av] Lizz Dumont height E&M 64 [in_i] Lizz Dumont Body Mass Index (Ratio) 17.33 kg/m2 Thalia Lopez MD blood pressure, cuff size large Tr katya Nielson blood pressure, diastolic 60 mm[Hg] Tr katya Nielson blood pressure, systolic 112 mm[Hg] Try oscar Nielson oxygen saturation, oximetry 99 % Jessica Nielson respiratory rate E&M 16 /min Jessica Nielson pulse rate 65 /min Jessica Nielson weight E&M 101 [lb_av] Jessica Nielson height E&M 64 [in_i] Jessica Nielson Body Mass Index (Ratio) 17.33 kg/m2 Thalia Lopez MD blood pressure, cuff size regular Ke rri Gem blood pressure, diastolic 80 mm[Hg] Ke rri Gem blood pressure, systolic 132 mm[Hg] Vasu ri Gem respiratory rate E&M 14 /min Natacha randall pulse rate 88 /min Natacha Yolanda [facility] weight E&M 101 [lb_av] Natacha Yolanda [facility] height E&M 64 [in_i] Natacha Nabeelneestephanie [facility] Body Mass Index (Ratio) 17.57 kg/m2 Thalia Lopez MD blood pressure, diastolic 70 mm[Hg] Michael Faria blood pressure, systolic 130 mm[Hg] Surekha Faria oxygen saturation, oximetry 98 % Aranza Faria respiratory rate E&M 16 /min Alvin Faria pulse rate 84 /min Aranza avilez weight E&M 102.4 [lb_av] Aranza ferris height E&M 64 [in_i] Aranza avilez Body Mass Index (Ratio) 17.33 kg/m2 Thalia Lopez MD blood pressure, diastolic 79 mm[Hg] Ch astity Tracy blood pressure, systolic 141 mm[Hg] Mandy stity Tracy oxygen saturation, oximetry 99 % Chastity Tracy pulse rate 59 /min Chastity Tracy weight E&M 101 [lb_av] Chastity Tracy respiratory rate E&M 16 /min Chastit y Tracy height E&M 64 [in_i] [facility] Body Mass Index (Ratio) 17.13 kg/m2 Thalia Lopez MD blood pressure, diastolic 70 mm[Hg] Michael Faria blood pressure, systolic 124 mm[Hg] Surekha Faria oxygen saturation, oximetry 99 % Aranza Faria respiratory rate E&M 16 /min Alvin Faria pulse rate 62 /min Aranza avilez weight E&M 99.8 [lb_av] Aranza avilez height E&M 64 [in_i] Aranza avilez Body Mass Index (Ratio) 17.85 kg/m2 Thalia Lopez MD blood pressure, diastolic 80 mm[Hg] Fe nichole Turpin blood pressure, systolic 122 mm[Hg] Fel icia Turpin oxygen saturation, oximetry 98 % Nasreen Turpin respiratory rate E&M 16 /min Nasreen Turpin pulse rate 62 /min Nasreen Turpin temperature E&M 97.6 [degF] Nasreen Turpin weight E&M 104 [lb_av] Nasreen Turpin height E&M 64 [in_i] Nasreen Turpin Body Mass Index (Ratio) 18.88 kg/m2 Thalia Lopez MD blood pressure, diastolic 65 mm[Hg] Cy juany Galvan blood pressure, systolic 108 mm[Hg] Janae elizabeth Galvan blood pressure, cuff size regular Dk merlynroyal Cole oxygen saturation, oximetry 97 % Cait Galvan respiratory rate E&M 16 /min Cait Galvan pulse rate 74 /min Cait Martínez l weight E&M 110 [lb_av] Cait Martínez l height E&M 64 [in_i] Cait Singhbel l Body Mass Index (Ratio) 18.36 kg/m2 Thalia Lopez MD blood pressure, diastolic 60 mm[Hg] Michael gamezSara Faria blood pressure, systolic 130 mm[Hg] Surekha Michaelwilbur Faria oxygen saturation, oximetry 98 % Aranza Faria respiratory rate E&M 18 /min Alvin Faria pulse rate 61 /min Aranza avilez weight E&M 107 [lb_av] Aranza avilez height E&M 64 [in_i] Aranza avilez Body Mass Index (Ratio) 20.77 kg/m2 Thalia Lopez MD blood pressure, diastolic 69 mm[Hg] To nsha Fuller blood pressure, systolic 145 mm[Hg] Ton talita Fuller respiratory rate E&M 16 /min Tonsha Fuller pulse rate 55 /min Tonsha Fuller oxygen saturation, oximetry 97 % Tons Fuller weight E&M 121 [lb_av] Tonsha Fuller height E&M 64 [in_i] [facility] Fuller Body Mass Index (Ratio) 20.63 kg/m2 Thalia Lopez MD blood pressure, diastolic 70 mm[Hg] Michael Faria blood pressure, systolic 133 mm[Hg] Surekha Faria oxygen saturation, oximetry 96 % Aranza Faria respiratory rate E&M 18 /min Alvin wilbur HerreraFaria pulse rate 67 /min Aranza Luis Alberto fatmata weight E&M 120.2 [lb_av] AranzaSara ferris height E&M 64 [in_i] Aranza avilez Body Mass Index (Ratio) 20.25 kg/m2 Thalia Lopez MD blood pressure, diastolic 60 mm[Hg] Michael Castillo'Flako blood pressure, systolic 116 mm[Hg] Surekha sanon O'Flako oxygen saturation, oximetry 98 % Iliana O'Flako respiratory rate E&M 16 /min Iliana O'Flako pulse rate 64 /min Iliana O'Flako weight E&M 118 [lb_av] Iliana O'Flako height E&M 64 [in_i] Iliana O'Flako Body Mass Index (Ratio) 20.08 kg/m2 Thalia Lopez MD blood pressure, diastolic 68 mm[Hg] Michael Faria blood pressure, systolic 145 mm[Hg] Surekha Faria oxygen saturation, oximetry 97 % Aranza Faria respiratory rate E&M 18 /min Alvin Faria pulse rate 64 /min Aranza Herrerae fatmata weight E&M 117 [lb_av] Aranza avilez height E&M 64 [in_i] Aranza avilez Body Mass Index (Ratio) 21.66 kg/m2 Thalia Lopez MD blood pressure, diastolic 70 mm[Hg] Michael Faria blood pressure, systolic 148 mm[Hg] Surekha Faria oxygen saturation, oximetry 98 % Aranza Faria respiratory rate E&M 18 /min Alvin Faria pulse rate 64 /min Aranza avilez weight E&M 126.2 [lb_av] Aranza ferris height E&M 64 [in_i] Aranza avilez Body Mass Index (Ratio) 21.80 kg/m2 Thalia Lopez MD blood pressure, diastolic 77 mm[Hg] Michael Faria blood pressure, systolic 175 mm[Hg] Surekha Faria oxygen saturation, oximetry 98 % Aranza Faria respiratory rate E&M 18 /min Alvin Faria pulse rate 63 /min Aranza avilez weight E&M 127 [lb_av] Aranza avilez height E&M 64 [in_i] Aranza avilez Body Mass Index (Ratio) 13.56 kg/m2 Thalia Lopez MD blood pressure, cuff size regular Kr isty Mark Anthony blood pressure, diastolic 70 mm[Hg] Ivan isty Lemmon blood pressure, systolic 120 mm[Hg] Cindy Hopson oxygen saturation, oximetry 98 % Chaparrita Hopson pulse rate 79 /min Chaparrita Mark Anthony respiratory rate E&M 16 /min Chaparrita Mark Anthony weight E&M 79 [lb_av] Chaparrita Hopson blood pressure, resting Yes David robles Mark Anthony height E&M 64 [in_i] Chaparrita Allenby Body Mass Index (Ratio) 21.97 kg/m2 Thalia Lopez MD blood pressure, diastolic 70 mm[Hg] Da leroy Heath blood pressure, systolic 120 mm[Hg] Dac ia Heath oxygen saturation, oximetry 98 % Michell Heath respiratory rate E&M 16 /min Michell V oss pulse rate 64 /min Michell Heath weight E&M 128 [lb_av] Michell Heath height E&M 64 [in_i] Michell Heath Body Mass Index (Ratio) 21.59 kg/m2 Thalia Lopez MD blood pressure, diastolic 75 mm[Hg] Michael Faria blood pressure, systolic 129 mm[Hg] Surekha Faria oxygen saturation, oximetry 96 % Aranza Faria respiratory rate E&M 18 /min Alvin Faria pulse rate 76 /min Aranza avilez weight E&M 125.8 [lb_av] Aranza ferris height E&M 64 [in_i] Aranza avilez blood pressure, diastolic 76 mm[Hg] Michael Faria blood pressure, systolic 140 mm[Hg] Surekha Faria pulse rate 74 /min Aranza avilez oxygen saturation, oximetry 99 % Aranza Faria respiratory rate E&M 16 /min Alvin Faria Body Mass Index (Ratio) 20.22 kg/m2 Keesha Faria weight E&M 117.8 [lb_av] Aranza ferris blood pressure, diastolic 80 mm[Hg] Michael Faria blood pressure, systolic 139 mm[Hg] Surekha Faria pulse rate 63 /min Aranza avilez oxygen saturation, oximetry 93 % Aranza Faria respiratory rate E&M 16 /min Alvin Faria Body Mass Index (Ratio) 20.32 kg/m2 Keesha Faria weight E&M 118.4 [lb_av] Aranza ferris blood pressure, diastolic, left arm 67 mm [Hg] Rochelle Reed blood pressure, systolic, left arm 112 mm [Hg] Rochelle Reed blood pressure, diastolic, right arm 81 m m[Hg] Rochelle Reed blood pressure, systolic, right arm 158 m m[Hg] Rochelle Reed blood pressure, diastolic 72 mm[Hg] Michael Faria blood pressure, systolic 129 mm[Hg] Surekha Faria pulse rate 70 /min Aranza avilez oxygen saturation, oximetry 90 % Aranza Faria respiratory rate E&M 16 /min Alvin Faria Body Mass Index (Ratio) 20.32 kg/m2 Keesha Faria weight E&M 118.4 [lb_av] Aranza ferris height E&M 64 [in_i] Aranza Sahu [facility] ALLERGIES Allergy Name Onset Date Reaction Criticality Status METOPROLOL fatigue fatigue Low Criticality acti ve LIVALO myalgia myalgia Low Criticality acti ve LIPITOR myalgia myalgia Low Criticality acti ve RESULTS Date Observation Value Provider Reference Range Interpretation Location prothrombin time (patient) 10.0 s [facility] 9.1-12.0 international normalized ratio (INR) 0.9 [facility] 0.9-1.2 lipoprotein, beta, serum, point, quantitative, calculated 101 mg/dL [facility] 0-99 High HDL cholesterol, serum 61 mg/dL [facility] >39 triglyceride, serum, random 252 mg/dL [facility] 0-149 High cholesterol, serum 204 mg/dL [facility] 100-199 High calcium, serum 9.5 mg/dL [facility] 8.7-10.3 carbon dioxide, venous blood 25 mmol/L [facility] 20-29 chloride, serum 104 mmol/L [facility] 96-106 potassium, serum 4.2 mmol/L [facility] 3.5-5.2 sodium, serum 143 mmol/L [facility] [phone]/01 /08 urea nitrogen/creatinine ratio, serum 18 [facility] 12-28 eGFR if 94 mL/min/{1.73_ m2} [facility] >59 eGFR if not 81 mL/min/{1.73_ m2} [facility] >59 creatinine, serum 0.77 mg/dL [facility] 0.57-1.00 urea nitrogen, blood 14 mg/dL [facility] 8-27 blood glucose, random 94 mg/dL [facility] 65-99 basophil count, absolute 0.1 x10E3/uL [facility] 0.0-0.2 Eosinophil Absolute Count 0.5 X10E3/UL [facility] 0.0-0.4 High monocyte count, blood, automated 0.5 X10E3/UL [facility] 0.1-0.9 lymphocyte count, blood, automated 2.9 X10E3/UL [facility] 0.7-3.1 Absolute Neutrophils 2.7 X10E3/UL [facility] 1.4-7.0 basophils as percent of blood leukocytes 1 % [facility] Not Estab. eosinophils as percent of blood leukocytes 8 % [facility] Not Estab. monocytes as percent of blood leukocytes 7 % [facility] Not Estab. lymphocytes as percent of blood leukocytes 43 % [facility] Not Estab. neutrophils as percent of blood leukocytes 41 % [facility] Not Estab. platelet count 304 X10E3/UL [facility] [phone]/01 /08 red blood cell distribution width 13.0 % [facility] 11.7-15.4 mean corpuscular hemoglobin concentration, RBC 32.7 G/DL [facility] 31.5-35.7 mean corpuscular hemoglobin, RBC 31.1 pg [facility] 26.6-33.0 mean corpuscular volume, RBC 95 fL [facility] 79-97 hematocrit, blood 34.3 % [facility] 34.0-46.6 hemoglobin, blood 11.2 g/dL [facility] 11.1-15.9 erythrocyte (RBC) count 3.60 X10E6/UL [facility] 3.77-5.28 Low leukocyte count, blood 6.7 X10E3/UL [facility] 3.4-10.8 prothrombin time (patient) 9.8 s [facility] 9.1-12.0 international normalized ratio (INR) 0.9 [facility] 0.9-1.2 lipoprotein, beta, serum, point, quantitative, calculated 258 mg/dL [facility] 0-99 High HDL cholesterol, serum 73 mg/dL [facility] >39 triglyceride, serum, random 149 mg/dL [facility] 0-149 cholesterol, serum 359 mg/dL [facility] 100-199 High calcium, serum 10.1 mg/dL [facility] 8.7-10.3 carbon dioxide, venous blood 26 mmol/L [facility] 20-29 chloride, serum 101 mmol/L [facility] 96-106 potassium, serum 4.6 mmol/L [facility] 3.5-5.2 sodium, serum 140 mmol/L [facility] [phone]/10 /30 urea nitrogen/creatinine ratio, serum 11 [facility] 12-28 Low eGFR if 80 mL/min/{1.73_ m2} [facility] >59 eGFR if not 69 mL/min/{1.73_ m2} [facility] >59 creatinine, serum 0.88 mg/dL [facility] 0.57-1.00 urea nitrogen, blood 10 mg/dL [facility] 8-27 blood glucose, random 89 mg/dL [facility] 65-99 basophil count, absolute 0.1 x10E3/uL [facility] 0.0-0.2 Eosinophil Absolute Count 0.1 X10E3/UL [facility] 0.0-0.4 monocyte count, blood, automated 0.4 X10E3/UL [facility] 0.1-0.9 lymphocyte count, blood, automated 2.4 X10E3/UL [facility] 0.7-3.1 Absolute Neutrophils 2.4 X10E3/UL [facility] 1.4-7.0 basophils as percent of blood leukocytes 1 % [facility] Not Estab. eosinophils as percent of blood leukocytes 2 % [facility] Not Estab. monocytes as percent of blood leukocytes 8 % [facility] Not Estab. lymphocytes as percent of blood leukocytes 44 % [facility] Not Estab. neutrophils as percent of blood leukocytes 45 % [facility] Not Estab. platelet count 311 X10E3/UL [facility] [phone]/10 /30 red blood cell distribution width 12.5 % [facility] 11.7-15.4 mean corpuscular hemoglobin concentration, RBC 33.6 G/DL [facility] 31.5-35.7 mean corpuscular hemoglobin, RBC 30.9 pg [facility] 26.6-33.0 mean corpuscular volume, RBC 92 fL [facility] 79-97 hematocrit, blood 36.6 % [facility] 34.0-46.6 hemoglobin, blood 12.3 g/dL [facility] 11.1-15.9 erythrocyte (RBC) count 3.98 X10E6/UL [facility] 3.77-5.28 leukocyte count, blood 5.5 X10E3/UL [facility] 3.4-10.8 lipoprotein, beta, serum, point, quantitative, calculated 268 mg/dL [facility] 0-99 High HDL cholesterol, serum 68 mg/dL [facility] >39 triglyceride, serum, random 174 mg/dL [facility] 0-149 High cholesterol, serum 370 mg/dL [facility] 100-199 High prothrombin time (patient) 9.7 s [facility] 9.1-12.0 international normalized ratio (INR) 0.9 [facility] 0.8-1.2 lipoprotein, beta, serum, point, quantitative, calculated 165 mg/dL [facility] 0-99 High very low density lipoproteins 60 mg/dL [facility] 5-40 High HDL cholesterol, serum 52 mg/dL [facility] >39 triglyceride, serum, random 298 mg/dL [facility] 0-149 High cholesterol, serum 277 mg/dL [facility] 100-199 High calcium, serum 9.6 mg/dL [facility] 8.7-10.3 carbon dioxide, venous blood 25 mmol/L [facility] 18-29 chloride, serum 104 mmol/L [facility] 96-106 potassium, serum 4.9 mmol/L [facility] 3.5-5.2 sodium, serum 144 mmol/L [facility] [phone]/03 /14 urea nitrogen/creatinine ratio, serum 28 [facility] 12-28 eGFR if 95 mL/min/{1.73_ m2} [facility] >59 eGFR if not 82 mL/min/{1.73_ m2} [facility] >59 creatinine, serum 0.78 mg/dL [facility] 0.57-1.00 urea nitrogen, blood 22 mg/dL [facility] 8-27 blood glucose, random 104 mg/dL [facility] 65-99 High basophil count, absolute 0.1 x10E3/uL [facility] 0.0-0.2 Eosinophil Absolute Count 0.5 X10E3/UL [facility] 0.0-0.4 High monocyte count, blood, automated 0.6 X10E3/UL [facility] 0.1-0.9 lymphocyte count, blood, automated 2.3 X10E3/UL [facility] 0.7-3.1 Absolute Neutrophils 4.0 X10E3/UL [facility] 1.4-7.0 basophils as percent of blood leukocytes 1 % [facility] Not Estab. eosinophils as percent of blood leukocytes 7 % [facility] Not Estab. monocytes as percent of blood leukocytes 7 % [facility] Not Estab. lymphocytes as percent of blood leukocytes 31 % [facility] Not Estab. neutrophils as percent of blood leukocytes 54 % [facility] Not Estab. platelet count 368 X10E3/UL [facility] [id number]/03 /14 red blood cell distribution width 13.2 % [facility] 12.3-15.4 mean corpuscular hemoglobin concentration, RBC 32.1 G/DL [facility] 31.5-35.7 mean corpuscular hemoglobin, RBC 31.1 pg [facility] 26.6-33.0 mean corpuscular volume, RBC 97 fL [facility] 79-97 hematocrit, blood 34.0 % [facility] 34.0-46.6 hemoglobin, blood 10.9 g/dL [facility] 11.1-15.9 Low erythrocyte (RBC) count 3.51 X10E6/UL [facility] 3.77-5.28 Low leukocyte count, blood 7.5 X10E3/UL [facility] 3.4-10.8 bilirubin, serum, indirect 0.3 MG/DL (CALC) [facility] 0.2-1.2 Normal bilirubin, serum, direct 0.0 mg/dL [facility] < OR = 0.2 Normal alanine aminotransferase (SGPT), serum 21 1/L [facility] 6-29 Normal aspartate aminotransferase (SGOT), serum 20 1/L [facility] 10-35 Normal alkaline phosphatase, serum 61 1/L [facility] 33-130 Normal bilirubin, serum, total 0.3 mg/dL [facility] 0.2-1.2 Normal albumin/globulin ratio, serum 1.5 (calc) [facility] 1.0-2.5 Normal globulins, serum, total 3.0 G/DL (CALC) [facility] 1.9-3.7 Normal albumin, serum 4.5 g/dL [facility] 3.6-5.1 Normal protein, total, serum 7.5 g/dL [facility] 6.1-8.1 Normal calcium, serum 10.7 mg/dL [facility] 8.6-10.4 High carbon dioxide, venous blood 30 mmol/L [facility] 20-31 Normal chloride, serum 103 mmol/L [facility] 98-110 Normal potassium, serum 4.7 mmol/L [facility] 3.5-5.3 Normal sodium, serum 141 mmol/L [facility] 135-146 Normal urea nitrogen/creatinine ratio, serum NOT APPLICABLE (calc) [facility] 6- Estimated Glomerular Filtration Rate (calc) 98 mL/min/{1.73_ m2} [facility] > OR = 60 Normal creatinine, serum 0.76 mg/dL [facility] 0.50-0.99 Normal urea nitrogen, blood 14 mg/dL [facility] 7-25 Normal blood glucose, random 95 mg/dL [facility] 65-99 Normal cholesterol, non-HDL, total 263 MG/DL (CALC) [facility] <130 High cholesterol/HDL ratio, serum, percent 6.1 (calc) [facility] <5.0 High LDL cholesterol, serum 222 MG/DL (CALC) [facility] High triglyceride, serum, fasting 223 mg/dL [facility] <150 High HDL cholesterol, serum 52 mg/dL [facility] >50 Normal cholesterol, serum 315 mg/dL [facility] <200 High HISTORY OF MEDICATION USE Medication Status Instructions Dates Provider Indications Com ments Toprol XL 25 mg tablet extended release 24 hr active Take 1 tablet by mouth once a day Travon Lopez MD magnesium oxide 400 mg magnesium capsule active Take 1 capsule by mouth once a day Candi Ventimiglia [employer] Leqvio 284 mg/1.5 mL syringe active Candi Pimentelmiglia [employer] metoprolol succinate 25 mg tablet extended release 24 hr completed Take 1 tablet by mouth once a day - Candi KLEIN lisinopril 20 mg tablet active Take 1 tablet by mouth twice a day Natacha Cadena 140 mg/mL pen injector completed INJECT 1 PEN SUBCUTANEOUSLY ONCE EVERY 2 WEEKS - Naa Cole rosuvastatin 5 mg tablet completed TAKE 1 TABLET BY MOUTH EVERY DAY - Travon Lopez MD Zetia 10 mg tablet completed Take 1 tablet by mouth once a day WITH ATORVASTATIN - Travon Lopez MD lisinopril 20 mg tablet completed Take 1 tablet by mouth twice daily - Natacha Rabago lisinopril 20 mg tablet completed Take 1 tablet by mouth twice a day Take 1 tablet by mouth twice daily - Vandana Kline metoprolol succinate 25 mg tablet extended release 24 hr completed Take 1 tablet by mouth once daily - Natacha Rabago lisinopril 20 mg tablet completed Take 1 tablet by mouth twice daily - Joleen Blackwell Leqvio 284 mg/1.5 mL syringe completed GIVEN IN OFFICE ONLY - Travon Silva Pushtronex 420 mg/3.5 mL wearable injector completed REPLACEMENT PRODUCT - USE DIRECTED - Travon Lopez MD metoprolol succinate 25 mg tablet extended release 24 hr completed Take 1 tablet by mouth once a day TAKE 1 TABLET BY MOUTH ONCE A DAY - Jen Louis ezetimibe 10 mg tablet completed Take 1 tablet by mouth once a day - Vikash Cote NP Plavix 75 mg tablet completed 1 tablet by mouth once a day - Vikash Cote NP amlodipine 10 mg tablet active Take 1 tablet by mouth once daily Travon Silva Pushtronex 420 mg/3.5 mL wearable injector completed Infuse 420 mg subcutaneously once a month - Natacha Rabago Prolia 60 mg/mL syringe active Inject 1 subcutaneously twice a year Aranza Silva SureClick 140 mg/mL pen injector completed Inject 1 subcutaneously every two weeks - Travon Lopez MD pt PA approved 07/12/18 for 1 yr PLAVIX 75 MG ORAL TABLET completed ONE TAB. DAILY - Aranza Faria ALENDRONATE SODIUM 70 MG ORAL TABLET completed 1 tab once a week - Aranza Faria ZETIA 10 MG ORAL TABLET completed ONE TAB. DAILY - Aranza Faria oxybutynin chloride 5 mg tablet active 0.5 tablet twice a day Aranza Faria ergocalciferol (vitamin D2) 1,250 mcg (50,000 unit) capsule active 1 tablet once a week Aranza Faria metoprolol succinate 50 mg tablet extended release 24 hr completed Take 1 tablet by mouth once a day - Travon Lopez MD amlodipine 5 mg tablet completed Take 1 tablet by mouth once a day - Jessica Nielson lisinopril 20 mg tablet completed Take 1 tablet by mouth twice a day - Lidia Lively Stool Softener 100 mg capsule active once a day Aranza Faria LIPITOR 10 MG ORAL TABLET completed ONE TAB. DAILY - Aranza Faria ASPIRIN 81 MG ORAL TABLET active 1 tablet twice a day Candi Ventimiglia [employer] MULTIVITAMINS CAPS active 1 tablet once a day Aranza Faria calcium carbonate 600 mg calcium (1,500 mg) tablet active 1 tablet by mouth once a day Aranza Faria Xanax 1 mg tablet active 1 tablet twice a day Aranza Faria LIPITOR completed ONE TAB. DAILY - Aranza Faria SOCIAL HISTORY Date Observation Value Provider Underweight yes Travon Lopez MD personal history of marijuana use no Travon Lopez MD drug use no Travon Lopez MD alcohol use no Travon Lopez MD smoking, year quit 2015 Travon lorenzo MD number of years as a smoker 20 a Travon Lopez MD smoking history, tot al pack/day 0.5 Travon Lopez MD cigarette use yes Travon Juarez smoking status Former smoker Travon Lopez MD Underweight yes Travon Lopez MD personal history of marijuana use no Travon Lopez MD drug use no Travon Lopez MD alcohol use no Travon Lopez MD smoking, year quit 2015 Travon lorenzo MD number of years as a smoker 20 a Travon Lopez MD smoking history, tot al pack/day 0.5 Travon Lopez MD cigarette use yes Travon Juarez smoking status Former smoker Travon Lopez MD Underweight yes Travon Lopez MD personal history of marijuana use no Candi Ventimiglia [facility] drug use no Candi Ventimig nasir [employer] alcohol use no Candi Ventimig nasir [employer] smoking, year quit 2015 Candi Ve ntimiglia [facility] number of years as a smoker 20 a Candi Ventimiglia [employer] smoking history, tot al pack/day 0.5 Candi Ventimiglia [employer] cigarette use yes Candi Ventimi glia [employer] smoking status Former smoker Candi Venti miglia [employer] Underweight yes Travon Lopez MD personal history of marijuana use no Candi Ventimiglia [employer] drug use no Candi Ventimig nasir [employer] alcohol use no Candi Ventimig nasir [employer] smoking, year quit 2015 Candi Ve ntimiglia [employer] number of years as a smoker 20 a Candi Ventimiglia [employer] smoking history, tot al pack/day 0.5 Candi Ventimiglia [employer] cigarette use yes Candi Ventimi glia [employer] smoking status Former smoker Candi Venti miglia [employer] Underweight no Oleksandr Noel MD Underweight yes Travon Lopez MD personal history of marijuana use no Candi Ventimiglia [employer] drug use no Candi Ventimig nasir [employer] alcohol use no Candi Ventimig nasir [employer] smoking, year quit 2015 Candi Ve ntimiglia [facility] number of years as a smoker 20 a Candi Ventimiglia [facility] smoking history, tot al pack/day 0.5 Candi Ventimiglia [facility] cigarette use yes Candi Ventimi glia [facility] smoking status Former smoker Candi Venti miglia [facility] Underweight no Ismael Bowie RN Underweight yes Travon Lopez MD personal history of marijuana use no Candi Ventimiglia [facility] drug use no Candi Ventimig nasir [facility] alcohol use no Candi Ventimig nasir [facility] smoking, year quit 2015 Candi Ve ntimiglia [facility] number of years as a smoker 20 a Candi Ventimiglia [facility] smoking history, tot al pack/day 0.5 Candi Ventimiglia [facility] cigarette use yes Candi Ventimi glia [facility] smoking status Former smoker Candi Venti miglia [facility] Underweight no Travon Lopez MD drug use no Travon Lopez MD alcohol use no Travon Lopez MD smoking, year quit 2016 Travon lorenzo MD number of years as a smoker 20 a Travon Lopez MD smoking history, tot al pack/day 0.5 Travon Lopez MD cigarette use yes Travon Juarez smoking status Former smoker Travon Lopez MD Underweight yes Travon Lopez MD drug use no Travon Lopez MD alcohol use no Travon Lopez MD smoking, year quit 2015 Travon lorenzo MD number of years as a smoker 20 a Travon Lopez MD smoking history, tot al pack/day 0.5 Travon Lopez MD cigarette use yes Travon Dumont D smoking status Former smoker Travon Lopez MD Underweight yes Travon Lopez MD smoking, year quit 2015 Travon lorenzo MD number of years as a smoker 20 a Travon Lopez MD smoking history, tot al pack/day 0.5 Travon Lopez MD cigarette use yes Travon Dumont D smoking status Former smoker Travon Lopez MD social history reviewed E&M revi ewed - no changes required Travon Lopez MD Underweight no Travon Lopez MD Underweight yes Travon Lopez MD social history reviewed E&M revi ewed - no changes required Vikash Cote NP social history E&M Patient carolina ntly smokes every day. 1 /2 ppd A lcohol Use - no D rug Use - no Smoking History: Laura vargas is a former smoker. Vikash Cote NP drug use no Vikash Cote NP alcohol use no Vikash Cote NP smoking status Former smoker Vikash mata NP Underweight no Lis Doe RN Underweight yes Travon Lopez MD social history E&M Patient carolina ntly smokes every day. 1 /2 ppd A lcohol Use - no D rug Use - no Smoking History: Laura vargas is a former smoker. Travon Lopez MD social history reviewed E&M revi ewed - no changes required Travon Lopez MD smoking, year quit 2015 Jen Louis number of years as a smoker 20 a Jen Louis smoking history, tot al pack/day 0.5 Jen Louis cigarette use yes Jen Mcguire kandi smoking status Former smoker Jen Amador sugar Underweight no Lis Doe RN Underweight yes Travon Lopez MD social history E&M Patient carolina ntly smokes every day. 1 /2 ppd A lcohol Use - no D rug Use - no Smoking History: Laura vargas is a former smoker. Travon Lopez MD social history reviewed E&M revi ewed - no changes required Travon Lopez MD smoking, year quit 2015 Selena Justin number of years as a smoker 20 a Selena Justin smoking history, tot al pack/day 0.5 Selena Justin cigarette use yes Selena cruz smoking status Former smoker Selena Gianni jane Underweight no Travon Lopez MD Underweight yes Travon Lopez MD social history E&M Patient carolina ntly smokes every day. 1 /2 ppd A lcohol Use - no D rug Use - no Smoking History: Laura vargas is a former smoker. Travon Lopez MD smoking, year quit 2015 Travon lorenzo MD number of years as a smoker 20 a Travon Lopez MD smoking history, tot al pack/day 0.5 Travon Lopez MD cigarette use yes Travon Juarez smoking status Former smoker Travon Lopez MD social history reviewed E&M revi ewed - no changes required Travon Lopez MD Underweight yes Travon Lopez MD social history E&M Patient carolina ntly smokes every day. 1 /2 ppd A lcohol Use - no D rug Use - no Smoking History: Laura vargas is a former smoker. Travon Lopez MD smoking, year quit 2015 Travon lorenzo MD number of years as a smoker 20 a Travon Lopez MD smoking history, tot al pack/day 0.5 Travon Lopez MD cigarette use yes Travon Dumont D smoking status Former smoker Travon Lopez MD social history reviewed E&M revi ewed - no changes required Travon Lopez MD Underweight yes Travon Lopez MD social history E&M Patient carolina ntly smokes every day. 1 /2 ppd A lcohol Use - no D rug Use - no Smoking History: Laura vargas is a former smoker. Travon Lopez MD smoking, year quit 2015 Travon lorenzo MD number of years as a smoker 20 a Travon Lopez MD smoking history, tot al pack/day 0.5 Travon Lopez MD cigarette use yes Travon Dumont D smoking status Former smoker Travon Lopez MD social history reviewed E&M revi ewed - no changes required Travon Lopez MD Underweight yes Travon Lopez MD social history E&M Patient carolina ntly smokes every day. 1 /2 ppd A lcohol Use - no D rug Use - no Smoking History: Laura vargas is a former smoker. Travon Lopez MD social history reviewed E&M revi ewed - no changes required Travon Lopez MD cigarette use yes Jessica Lisa s smoking status Former smoker Jessica Adams rds Underweight yes Travon Lopez MD social history reviewed E&M revi ewed - no changes required Travon Lopez MD smoking, year quit 2015 Natacha Blood hodan number of years as a smoker 20 a Natacha Gem smoking history, tot al pack/day 0.5 Natacha Gem cigarette use yes Natacha Cary russo smoking status Former smoker Natacha Joshua hendrickser Underweight yes Travon Lopez MD social history E&M Patient carolina ntly smokes every day. 1 /2 ppd A lcohol Use - no D rug Use - no Smoking History: P atient is a former smoker. Travon Lopez MD social history reviewed E&M revi ewed - no changes required Travon Lopez MD smoking, year quit 2015 Aranza Faria number of years as a smoker 20 a Aranza Faria smoking history, tot al pack/day 0.5 Aranza Faria cigarette use yes Aranza ferris smoking status Former smoker Aranza Slade Underweight yes Travon Lopez MD social history E&M Patient curre ntly smokes every day. 1 /2 ppd A lcohol Use - no D rug Use - no Smoking History: P atient is a former smoker. Travon Lopez MD social history reviewed E&M revi ewed - no changes required Travon Lopez MD smoking, year quit 2016 Nita Molina number of years as a smoker 20 a Nita Molina smoking history, tot al pack/day 0.5 Nita Molina cigarette use yes Nita Molina smoking status Former smoker Nita lópez Underweight yes Travon Lopez MD drug use no Travon Lopez MD alcohol use no Travon Lopez MD social history E&M Patient carolina carver smokes every day. 1 /2 ppd A lcohol Use - no D rug Use - no Smoking History: P atcharla is a former smoker. Travon Lopez MD social history reviewed E&M revi ewed - no changes required Travon Lopez MD smoking, year quit 2015 AranzaSara Herreraenson number of years as a smoker 20 a Aranza Herreraenson smoking history, tot al pack/day 0.5 Aranza Faria cigarette use yes Aranza ferris smoking status Former smoker Aranza St mackson Underweight yes Travon Lopez MD drug use no Travon Lopez MD alcohol use no Travon Lopez MD social history E&M Patient carolina carver smokes every day. 1 /2 ppd A lcohol Use - no D rug Use - no Smoking History: P alicia is a former smoker. Travon Lopez MD social history reviewed E&M revi ewed - no changes required Travon Lopez MD smoking, year quit 2016 Nasreen F ox number of years as a smoker 20 a Nasreen Turpin smoking history, tot al pack/day 0.5 Nasreen Turpin cigarette use yes Nasreen Turpin smoking status Former smoker Nasreen Turpin Underweight yes Travon Lopez MD drug use no Travon Lopez MD alcohol use no Travon Lopez MD social history E&M Patient curre ntly smokes every day. 1 /2 ppd A lcohol Use - no D rug Use - no Smoking History: P alicia is a former smoker. Travon Lopez MD social history reviewed E&M revi ewed - no changes required Travon Lopez MD smoking, year quit 2015 Cait ryan number of years as a smoker 20 a Cait Galvan smoking history, tot al pack/day 0.5 Cait Galvan cigarette use yes Cait Paola orta smoking status Former smoker Cait Singh landrum Underweight yes Travon Lopez MD social history E&M Patient carolina ntly smokes every day. 1 /2 ppd A lcohol Use - no D rug Use - no Smoking History: P alicia is a former smoker. Travon Lopez MD social history reviewed E&M revi ewed - no changes required Travon Lopez MD smoking, year quit 2016 Aranza Faria number of years as a smoker 20 a Aranza Faria smoking history, tot al pack/day 0.5 Aranza Faria cigarette use yes AranzaSara ferris smoking status Former smoker Aranza Kilgore isabella social history E&M Patient carolina ntly smokes every day. 1 /2 ppd A lcohol Use - no D rug Use - no Smoking History: P alicia is a former smoker. Travon Lopez MD social history reviewed E&M revi ewed - no changes required Travon Lopez MD smoking, year quit 2016 Tonsha Mo ss number of years as a smoker 20 a Tonsha Fuller smoking history, tot al pack/day 0.5 Tonsha Fuller cigarette use yes Tonsha Fuller smoking status Former smoker Crispin Fuller social history E&M Patient carolina ntly smokes every day. 1 /2 ppd A lcohol Use - no D rug Use - no Smoking History: Laura vargas is a former smoker. Travon Lopez MD social history reviewed E&M revi ewed - no changes required Travon Lopez MD smoking, year quit 2015 Aranza Faria number of years as a smoker 20 a Aranza Faria smoking history, tot al pack/day 0.5 AranzaSara Herreraenson cigarette use yes Aranza ferris smoking status Former smoker Aranza Slade social history E&M Patient carolina ntly smokes every day. 1 /2 ppd A lcohol Use - no D rug Use - no Smoking History: Laura vargas is a former smoker. Travon Lopez MD social history reviewed E&M revi ewed - no changes required Travon Lopez MD alcohol use no Iliana O'Flako drug use no Iliana O'Flako smoking, year quit 2015 Iliana O' Flako number of years as a smoker 20 a Iliana O'Flako smoking history, tot al pack/day 0.5 Iliana O'Flako cigarette use yes Iliana O'Flako smoking status Former smoker Iliana O'Frances l social history E&M Patient carolina ntly smokes every day. 1 /2 ppd A lcohol Use - no D rug Use - no Smoking History: Laura vargas is a former smoker. Travon Lopez MD social history reviewed E&M revi ewed - no changes required Travon Lopez MD alcohol use no Aranza Sahu alexuson drug use no Aranza Sahu fatmata smoking, year quit 2015 Aranza Faria number of years as a smoker 20 a Aranza Faria smoking history, tot al pack/day 0.5 Aranza Faria cigarette use yes Aranza aguilaron smoking status Former smoker Aranza Slade social history E&M Patient carolina ntly smokes every day. 1 /2 ppd A lcohol Use - no D rug Use - no Smoking History: P alicia is a former smoker. Travon Lopez MD social history reviewed E&M revi ewed - no changes required Travon Lopez MD alcohol use no Aranza Sahu nson drug use no Aranza Sahu nson smoking, year quit 2015 Aranza Faria number of years as a smoker 20 a Aranza Faria smoking history, tot al pack/day 0.5 Aranza Faria cigarette use yes Aranza aguilardwight smoking status Former smoker Aranza Slade social history E&M Patient carolina ntjudy smokes every day. 1 /2 ppd A lcohol Use - no D rug Use - no Smoking History: Laura vargas is a former smoker. Travon Lopez MD social history reviewed E&M revi ewed - no changes required Travon Lopez MD Underweight no Travon Lopez MD alcohol use no Aranza Sahu nson drug use no Aranza Herrerae nson smoking, year quit 2015 Aranza Faria number of years as a smoker 20 a Aranzamarie Faria smoking history, tot al pack/day 0.5 Aranza Faria cigarette use yes Aranza Herrera enson smoking status Former smoker Aranza Kilgore isabella Underweight yes Travon Lopez MD social history E&M Patient carolina carver smokes every day. 1 /2 ppd A lcohol Use - no D rug Use - no Smoking History: Laura vargas is a former smoker. Travon Lopez MD smoking status Former smoker Travon Lopez MD social history reviewed E&M revi ewed - no changes required Travon Lopez MD social history E&M Patient carolina carver smokes every day. 1 /2 ppd A lcohol Use - no D rug Use - no Smoking History: Laura vargas is a former smoker. Travon Lopez MD social history reviewed E&M revi ewed - no changes required Travon Lopez MD alcohol use no Michell Heath drug use no Michell Heath smoking, year quit 2015 Michell Aleyda s number of years as a smoker 20 a Michell Heath smoking history, tot al pack/day 0.5 Michell Heath cigarette use yes Michell Heath smoking status Former smoker Michell Heath number of grandchildren Travon Lopez MD U william Lopez MD social history reviewed E&M revi ewed - no changes required Travon Lopez MD social history E&M Patient carolina carver smokes every day. 1 /2 ppd A lcohol Use - no D rug Use - no Smoking History: Laura vargas is a former smoker. Travon Lopez MD smoking, year quit 2015 Aranza Faria alcohol use no Aranza avilez drug use no Aranza avilez number of years as a smoker 20 a Aranza Faria smoking history, tot al pack/day 0.5 Aranza Faria cigarette use yes Aranza ferris smoking status Former smoker Aranza Slade social history reviewed E&M revi ewed - no changes required Travon Lopez MD alcohol use no Aranza avilez smoking/tobacco cess ation, patient education and counseling yes Aranza Faria drug use no Aranza avilez number of years as a smoker 20 a Aranza Faria smoking history, tot al pack/day 0.5 Aranza Faria cigarette use yes Aranza ferris smoking status current every da y smoker Aranza Faria social history E&M Patient carolina ntly smokes every day. 1 /2 ppd A lcohol Use - no D rug Use - no Smoking History: P atient currently smokes every day. P atient has been counseled to quit. Travon Lopez MD social history reviewed E&M revi ewed - no changes required Travon Lopez MD alcohol use no Aranza Sahu alexusdwight smoking/tobacco cess ation, patient education and counseling yes Aranza Faria drug use no Aranza avilez number of years as a smoker 20 a Aranza Faria smoking history, tot al pack/day 0.5 Aranza Faria cigarette use yes Aranza ferris smoking status current every da y smoker Aranza Faria drug use no Travon Lopez MD social history E&M Patient carolina ntly smokes every day. 1 /2 ppd A lcohol Use - no D rug Use - no Smoking History: P atient currently smokes every day. P atient has been counseled to quit. Travon Lopez MD social history reviewed E&M revi ewed - no changes required Travon Lopez MD smoking/tobacco cess ation, patient education and counseling yes Travon Lopez MD number of years as a smoker 20 a Aranza Bienvenido smoking history, tot al pack/day 0.5 Aranza Faria cigarette use yes Aranza ferris smoking status current every da y smoker Travon Lopez MD FUNCTIONAL STATUS Date Observation Value Provider HRA, CV Assess/Plan, Angina (inactive) Management Plan continue current therapy Travon Lopez MD HRA, CV Assess/Plan, Angina (inactive) Management Plan continue current therapy Candi Ventimiglia [employer] HRA, CV Assess/Plan, Angina (inactive) Management Plan continue current therapy Candi Ventimiglia [employer] HRA, CV Assess/Plan, Angina (inactive) Management Plan continue current therapy Candi Ventimiglia [employer] HRA, CV Assess/Plan, Angina (inactive) Management Plan continue current therapy, schedule PCI Travon Lopez MD HRA, CV Assess/Plan, Angina (inactive) Management Plan continue current therapy Travon Lopez MD HRA, CV Assess/Plan, Angina (inactive) Management Plan continue current therapy Vikash Cote NP HRA, CV Assess/Plan, Angina (inactive) Management Plan continue current therapy Travon Lopez MD HRA, CV Assess/Plan, Angina (inactive) Management Plan continue current therapy Travon Lopez MD HRA, CV Assess/Plan, Angina (inactive) Management Plan continue current therapy Travon Lopez MD HRA, CV Assess/Plan, Angina (inactive) Management Plan continue current therapy Travon Lopez MD HRA, CV Assess/Plan, Angina (inactive) Management Plan schedule PCI Travon Lopez MD HRA, CV Assess/Plan, Angina (inactive) Management Plan schedule PCI Travon Lopez MD HRA, CV Assess/Plan, Angina (inactive) Management Plan continue current therapy Travon Lopez MD HRA, CV Assess/Plan, Angina (inactive) Management Plan continue current therapy Travon Lopez MD HRA, CV Assess/Plan, Angina (inactive) Management Plan continue current therapy Travon Lopez MD HRA, CV Assess/Plan, Angina (inactive) Management Plan continue current therapy Travon Lopez MD HRA, CV Assess/Plan, Angina (inactive) Management Plan continue current therapy Travon Lopez MD FAMILY HISTORY Family Member Condition Father Family History of Co ronary Artery Disease: Father Family History of Hy perlipidemia: Mother Family History of Hy pertension: Mother Family History of Di abetes: INSURANCE PROVIDERS Payer name Policy type / Coverage type [place] red libertarian [employer] [facility] COMPLETE CARE [id number] (PPO C-SNP) Navmii insurance [employer] [id number] [facility] Medicaid 0 [id number] ADVANCE DIRECTIVES Name Date DISCUSSED - NO DECISION MADE TREATMENT PLAN Date Name Performer [id number],C,S eems to have improved with removal of wires but still has some. Travon Lopez MD [id number],S,B P is better at home BP today: 140/96 P rior BP: 117/77 (09/24/2022) Labs Reviewed: C reat: 0.77 (03/08/2021) C hol: 204 (03/08/2021) HDL: 61 (03/08/2021) Her updated medication list for this problem includes: Lisinopril 20 Mg Tablet (Lisinopril) ..... Take 1 tablet by mouth twice daily Amlodipine 5 Mg Tablet (Amlodipine) ..... Take 1 tablet by mouth once daily Metoprolol Succinate 25 Mg Tablet Extended Release 24 Hr (Metoprolol succinate) ..... Take 1 tablet by mouth once daily Travon Lopez MD [id number],C, The following medications were removed from the medication list: Ezetimibe 10 Mg Tablet (Ezetimibe) ..... Take 1 tablet by mouth once a day Her updated medication list for this problem includes: Leqvio 284 Mg/1.5 Ml Syringe (Inclisiran) ..... Given in office only Vikash Cote FUR EXAMINER [id number],C, B P today: 117/77 P rior BP: 128/62 (03/26/2022) Labs Reviewed: C reat: 0.77 (03/08/2021) C hol: 204 (03/08/2021) HDL: 61 (03/08/2021) Her updated medication list for this problem includes: Lisinopril 20 Mg Tablet (Lisinopril) ..... Take 1 tablet by mouth twice daily Amlodipine 5 Mg Tablet (Amlodipine) ..... Take 1 tablet by mouth once daily Metoprolol Succinate 25 Mg Tablet Extended Release 24 Hr (Metoprolol succinate) ..... Take 1 tablet by mouth once daily Vikash Cote MICHAEL [id number],C, C arotid Duplex 04/2022 CONCLUSIONS: 1 . 50 - 69% stenosis of the right ICA. 2 . <50% stenosis of the left ICA. 3 . Vertebral flow is antegrade bilaterally. Vikash Cote MICHAEL [id number],C, N o angina. Continue the Leqvio and aspirin. P atient to follow up with CTS regarding pain ? caused by some wires. Vikash Cote MICHAEL [id number],C, P rior BP: 128/62 (03/26/2022) Labs Reviewed: C reat: 0.77 (03/08/2021) C hol: 204 (03/08/2021) HDL: 61 (03/08/2021) Her updated medication list for this problem includes: Amlodipine 5 Mg Tablet (Amlodipine) ..... Take 1 tablet by mouth once daily Metoprolol Succinate 25 Mg Tablet Extended Release 24 Hr (Metoprolol succinate) ..... Take 1 tablet by mouth once daily Lisinopril 20 Mg Tablet (Lisinopril) ..... Take 1 tablet by mouth twice daily Travon Lopez MD [id number],C, O n leqvio, LDL down to 93 Travon Lopez MD [id number],S, Travon Lopez MD [id number],C, C ontinue the Leqvio and aspirin L p(a) is elevated and we will try to put her in the study to try to reduce her levels Travon Lopez MD [id number],S, 5 0-69% stenosis of the SHARON on her recent scan. No dizziness, near syncope, or syncope. W ill repeat her scan. Travon Lopez MD [id number],B,H aving issues with her RPM which we'll try and resolve. BP today: 128/62 P rior BP: 143/82 (12/25/2021) Her updated medication list for this problem includes: Lisinopril 20 Mg Tablet (Lisinopril) ..... Take 1 tablet by mouth twice daily Metoprolol Succinate 25 Mg Tablet Extended Release 24 Hr (Metoprolol succinate) ..... Take 1 tablet by mouth once a day take 1 tablet by mouth once a day Amlodipine 5 Mg Tablet (Amlodipine) ..... Take 1 tablet by mouth once daily Travon Lopez MD [id number],S,O n medical therapy. Her updated medication list for this problem includes: Lisinopril 20 Mg Tablet (Lisinopril) ..... Take 1 tablet by mouth twice daily Plavix 75 Mg Tablet (Clopidogrel) ..... 1 tablet by mouth once a day Metoprolol Succinate 25 Mg Tablet Extended Release 24 Hr (Metoprolol succinate) ..... Take 1 tablet by mouth once a day take 1 tablet by mouth once a day Amlodipine 5 Mg Tablet (Amlodipine) ..... Take 1 tablet by mouth once daily Travon Lopez MD [id number],C,O n leqvio and she will have her lipid profile done. We will also check hsCRP and Lp(a). Travon Lopez MD [id number],B, Travon Lopez MD [id number],S, H er constant chest pain isn't likely to be related to blocked arteries. Her updated medication list for this problem includes: Metoprolol Succinate 25 Mg Tablet Extended Release 24 Hr (Metoprolol succinate) ..... Take 1 tablet by mouth once a day take 1 tablet by mouth once a day Plavix 75 Mg Tablet (Clopidogrel) ..... 1 tablet by mouth once a day Amlodipine 5 Mg Tablet (Amlodipine) ..... Take 1 tablet by mouth once daily Travon Lopez MD [id number],S, H er LDL still isn't particularly well controlled on the repatha so we're going to try and give her leqvio infusions instead Travon Lopez MD [id number],S, A BI on 06/17/21 shows: 1 . Mild arterial disease of the lower extremities bilaterally. 2 . Normal JOEY, right and left 1.0. 3 . Moderate artherosclerosis bilaterally; nurmerous areas of mild stenosis. Travon Lopez MD [id number],C, B P today: 143/82 P rior BP: 150/81 (09/22/2021) H er updated medication list for this problem includes: Metoprolol Succinate 25 Mg Tablet Extended Release 24 Hr (Metoprolol succinate) ..... Take 1 tablet by mouth once a day take 1 tablet by mouth once a day Amlodipine 5 Mg Tablet (Amlodipine) ..... Take 1 tablet by mouth once daily Travon Lopez MD [id number],S, 5 0-69% stenosis of the SHARON on her recent scan. Travon Lopez MD [id number],S, W e'll recheck her carotid US. Travon Lopez MD [id number],W, S he would probably benefit from an MRI to see if her rotator cuff is torn. Travon Lopez MD [id number],W, B P today: 150/81 P rior BP: 132/79 (06/23/2021) Her updated medication list for this problem includes: Metoprolol Succinate 25 Mg Tablet Extended Release 24 Hr (Metoprolol succinate) ..... Take 1 tablet by mouth once a day take 1 tablet by mouth once a day Lisinopril 20 Mg Tablet (Lisinopril) ..... Take 1 tablet by mouth twice a day Amlodipine 5 Mg Tablet (Amlodipine) ..... Take 1 tablet by mouth once daily Travon Lopez MD [id number],S, A BI on 06/17/21 shows: 1 . Mild arterial disease of the lower extremities bilaterally. 2 . Normal JOEY, right and left 1.0. 3 . Moderate artherosclerosis bilaterally; nurmerous areas of mild stenosis. Travon Lopez MD [id number],B, S he's taking repatha once a month and zetia 10mg daily. We'll check her lipids now. Her updated medication list for this problem includes: Ezetimibe 10 Mg Tablet (Ezetimibe) ..... Take 1 tablet by mouth once a day Repatha Pushtronex 420 Mg/3.5 Ml Wearable Injector (Evolocumab) ..... Infuse 420 mg subcutaneously once a month Travon Lopez MD [id number],S, H er constant chest pain isn't likely to be related to blocked arteries. Her updated medication list for this problem includes: Metoprolol Succinate 25 Mg Tablet Extended Release 24 Hr (Metoprolol succinate) ..... Take 1 tablet by mouth once a day take 1 tablet by mouth once a day Lisinopril 20 Mg Tablet (Lisinopril) ..... Take 1 tablet by mouth twice a day Plavix 75 Mg Tablet (Clopidogrel) ..... 1 tablet by mouth once a day Amlodipine 5 Mg Tablet (Amlodipine) ..... Take 1 tablet by mouth once daily Travon Lopez MD [id number],C,A BI on 06/17/21 shows: 1 . Mild arterial disease of the lower extremities bilaterally. 2 . Normal JOEY, right and left 1.0. 3 . Moderate artherosclerosis bilaterally; nurmerous areas of mild stenosis. Travon Lopez MD [id number],S,W ill repeat lab work in 3 month. Pt will get Repatha machine replaced. Her updated medication list for this problem includes: Ezetimibe 10 Mg Tablet (Ezetimibe) ..... Take 1 tablet by mouth once a day Repatha Pushtronex 420 Mg/3.5 Ml Wearable Injector (Evolocumab) ..... Infuse 420 mg subcutaneously once a month Travon Lopez MD [id number],S,S eems to be okay although she reported it episodically going up. Will order an RPM to monitor BP. Reduced Metoprolol to increase low HR. BP today: 132/79 P rior BP: 129/63 (05/15/2021) Labs Reviewed: C reat: 0.77 (03/08/2021) C hol: 204 (03/08/2021) HDL: 61 (03/08/2021) T he following medications were removed from the medication list: Metoprolol Succinate 50 Mg Tablet Extended Release 24 Hr (Metoprolol succinate) ..... Take 1 tablet by mouth once a day Her updated medication list for this problem includes: Metoprolol Succinate 25 Mg Tablet Extended Release 24 Hr (Metoprolol succinate) ..... Take 1 tablet by mouth once a day take 1 tablet by mouth once a day Lisinopril 20 Mg Tablet (Lisinopril) ..... Take 1 tablet by mouth twice a day Amlodipine 5 Mg Tablet (Amlodipine) ..... Take 1 tablet by mouth once daily Travon Lopez MD [id number],C, Cardiac Cath with Dr. Coats: I mpression: Successful RESEARCH NUTRITIONIST PCI of dominant circumflex heavily calcified lesion with CSI atherectomy. 2.25X38 & 3.0X28 s tents were placed, distal stent post dilated with 2.5, 3.0 NC balloon, proximal stent post dilated with 3.5 NC balloon. Travon Lopez MD [id number],S, H er updated medication list for this problem includes: Repatha Pushtronex 420 Mg/3.5 Ml Wearable Injector (Evolocumab) ..... Infuse 420 mg subcutaneously once a month Travon Lopez MD [id number],C,Will order an JOEY. Travon Lopez MD [id number],S, B P today: 129/63 P rior BP: 112/60 (02/24/2021) Labs Reviewed: C reat: 0.77 (03/08/2021) C hol: 204 (03/08/2021) HDL: 61 (03/08/2021) Her updated medication list for this problem includes: Lisinopril 20 Mg Tablet (Lisinopril) ..... Take 1 tablet by mouth twice a day Amlodipine 5 Mg Tablet (Amlodipine) ..... Take 1 tablet by mouth once daily Metoprolol Succinate 50 Mg Tablet Extended Release 24 Hr (Metoprolol succinate) ..... Take 1 tablet by mouth once a day Travon Lopez MD [id number],C, C urrently not very symptomatic. Travon Lopez MD [id number],C,H er left shoulder pain seem to be more musculoskeletal, and is not from repetitive movements. Will treat medically. Travon Lopez MD [id number],S, B P today: 112/60 P rior BP: 132/80 (12/27/2020) Her updated medication list for this problem includes: Amlodipine 5 Mg Tablet (Amlodipine) ..... Take 1 tablet by mouth once a day Metoprolol Succinate 50 Mg Tablet Extended Release 24 Hr (Metoprolol succinate) ..... Take 1 tablet by mouth once a day Lisinopril 20 Mg Tablet (Lisinopril) ..... Take 1 tablet by mouth twice a day Travon Lopez MD [id number],S, W ill reschedule once she is ready, as we had to stop because she developed a dissection. Travon Lopez MD [id number],S, N ow on repatha. Most recent LDL 258 in 11/2020. Had been on the twice weekly injection, but now is on once monthly. If it's still high, then will need to switch to either praluent or incliseran. Travon Lopez MD [id number],S, Travon Lopez MD [id number],W,S tress test is abnormal. Needs to schedule for a cardiac cath at [facility]. Her updated medication list for this problem includes: Amlodipine 5 Mg Tablet (Amlodipine) ..... Take 1 tablet by mouth once a day Metoprolol Succinate 50 Mg Tablet Extended Release 24 Hr (Metoprolol succinate) ..... Take 1 tablet by mouth once a day Lisinopril 20 Mg Tablet (Lisinopril) ..... Take 1 tablet by mouth twice a day Travon Lopez MD [id number],S, H er updated medication list for this problem includes: Repatha Pushtronex 420 Mg/3.5 Ml Wearable Injector (Evolocumab) ..... Infuse 420 mg subcutaneously once a month Travon Lopez MD [id number],S, H er updated medication list for this problem includes: Amlodipine 5 Mg Tablet (Amlodipine) ..... Take 1 tablet by mouth once a day Metoprolol Succinate 50 Mg Tablet Extended Release 24 Hr (Metoprolol succinate) ..... Take 1 tablet by mouth once a day Lisinopril 20 Mg Tablet (Lisinopril) ..... Take 1 tablet by mouth twice a day BP today: 132/80 P rior BP: 130/70 (12/20/2020) Labs Reviewed: C reat: 0.78 (05/12/2017) C hol: 370 (12/29/2019) HDL: 68 (12/29/2019) Travon Lopez MD [id number],C, H aving some chest achiness that radiates to her L arm and neck. Improves with placing a heating pad in the area. Travon Lopez MD [id number],C, O rders: S tress Regadenoson (CPT-10300) Travon Lopez MD [id number],W, L abs 11/06/20 LDL of 236. I would like to get her on a monthly Repatha injection. Has not been able to tolerate lipitor or livalo in the past. Her son was recently dx with hypercholesterolemia as well. Travon Lopez MD [id number],C,recheck carot id duplex Travon Lopez MD [id number],C,w ill do chest x ray and CT chest without contrast, we are looking at the sternum and to make sure there has been union of the bones. Travon Lopez MD Cardiology:Her monit or showed she is having 20% PVC burden, recommend she sees EP for evaluation for PVCs and her candidacy for ablation She seems to have become sx with this but has not decreased her LV function. I will have her see EP to consider VT ablation if he agrees. S he had a cath done in August 2023 that did not show any areas of significant ischemia. w ill start on Toprolol XL 25 as she feels worse since her beta block has stopped. Travon Lopez MD Cardiology:This visi t has been a part of the consistent, comprehensive, and ongoing management of the chronic medical condition(s) listed above for the patient. BP today: 155/90 P rior BP: 147/74 (02/07/2024) Labs Reviewed: C reat: 0.77 (03/08/2021) C hol: 204 (03/08/2021) HDL: 61 (03/08/2021) LDL: 101 (03/08/2021) T (03/08/2021) Her updated medication list for this problem includes: Lisinopril 20 Mg Tablet (Lisinopril) ..... Take 1 tablet by mouth twice a day Amlodipine 5 Mg Tablet (Amlodipine) ..... Take 1 tablet by mouth once daily Travon Lopez MD Cardiology:She seems to have become sx with this but has not decreased her LV function. I will have her see EP to consider VT ablation if he agrees. S he had a cath done in August 2023 that did not show any areas of significant ischemia. w ill start on Toprolol XL 25 as she feels worse since her beta block has stopped. Travon Lopez MD Cardiology:controlle erica roca present meds H er updated medication list for this problem includes: Lisinopril 20 Mg Tablet (Lisinopril) ..... Take 1 tablet by mouth twice a day Amlodipine 5 Mg Tablet (Amlodipine) ..... Take 1 tablet by mouth once daily [facility] Cardiology:unchanged R ICA 50-69% c redinrene lipid lowering therapy [facility] Cardiology:Now on Le qvio w ill monitor T he following medications were removed from the medication list: Repatha Sureclick 140 Mg/ml Pen Injector (Evolocumab) ..... Inject 1 pen subcutaneously once every 2 weeks Her updated medication list for this problem includes: Leqvio 284 Mg/1.5 Ml Syringe (Inclisiran) [facility] Cardiology:With rece nt cath and no significant stenosis W ill monitor for new symptoms H er updated medication list for this problem includes: Lisinopril 20 Mg Tablet (Lisinopril) ..... Take 1 tablet by mouth twice a day Amlodipine 5 Mg Tablet (Amlodipine) ..... Take 1 tablet by mouth once daily [facility] Cardiology:Patient h ad recent tele monitor that showed 15% VE burden. She is relatively asymptomatic and BB had to be stopped d/t bradycardia and fatigue. We will plan to add Magnesium oxide. Will plan follow up monitor and echo in 3 mos. Will need echo to determine if LV dysfunction in setting of ectopy H er updated medication list for this problem includes: Lisinopril 20 Mg Tablet (Lisinopril) ..... Take 1 tablet by mouth twice a day Amlodipine 5 Mg Tablet (Amlodipine) ..... Take 1 tablet by mouth once daily [facility] Cardiology [facility] Cardiology: H er updated medication list for this problem includes: Repatha Sureclick 140 Mg/ml Pen Injector (Evolocumab) ..... Inject 1 pen subcutaneously once every 2 weeks [facility] Cardiology:seen by darwin and martinez feng [facility] Cardiology:BP 128/72 w ell controlled T he following medications were removed from the medication list: Metoprolol Succinate 25 Mg Tablet Extended Release 24 Hr (Metoprolol succinate) ..... Take 1 tablet by mouth once a day Her updated medication list for this problem includes: Lisinopril 20 Mg Tablet (Lisinopril) ..... Take 1 tablet by mouth twice a day Amlodipine 5 Mg Tablet (Amlodipine) ..... Take 1 tablet by mouth once daily [facility] Cardiology:continued reports of weakness and fatigued r ecently hospitalized with bradycardia and SAIMA B B stopped W ill do tele monitor [facility] Cardiology:no new si gnificant stenosis on carotid reviewed by Dr. Lopez today [facility] Cardiology:no new claudication s ymptoms [facility] Cardiology: H er updated medication list for this problem includes: Repatha Sureclick 140 Mg/ml Pen Injector (Evolocumab) ..... Inject 1 pen subcutaneously once every 2 weeks [facility] Cardiology:no new ch est pain or significant stenosis on last cath c ontinue medical management H er updated medication list for this problem includes: Metoprolol Succinate 25 Mg Tablet Extended Release 24 Hr (Metoprolol succinate) ..... Take 1 tablet by mouth once daily Lisinopril 20 Mg Tablet (Lisinopril) ..... Take 1 tablet by mouth twice a day Amlodipine 5 Mg Tablet (Amlodipine) ..... Take 1 tablet by mouth once daily [facility] Cardiology:BP 124/64 at goal c ontinue present medications H er updated medication list for this problem includes: Metoprolol Succinate 25 Mg Tablet Extended Release 24 Hr (Metoprolol succinate) ..... Take 1 tablet by mouth once daily Lisinopril 20 Mg Tablet (Lisinopril) ..... Take 1 tablet by mouth twice a day Amlodipine 5 Mg Tablet (Amlodipine) ..... Take 1 tablet by mouth once daily [facility] Cardiology:she has p ounding in ears k nown carotid disease l ast study showed 50-69% SHARON. Will repeat [facility] Cardiology:BP 133/82 c ontinrene present meds H er updated medication list for this problem includes: Lisinopril 20 Mg Tablet (Lisinopril) ..... Take 1 tablet by mouth twice a day Metoprolol Succinate 25 Mg Tablet Extended Release 24 Hr (Metoprolol succinate) ..... Take 1 tablet by mouth once daily Amlodipine 5 Mg Tablet (Amlodipine) ..... Take 1 tablet by mouth once daily [facility] Cardiology:She lu nues to have fatigue that has worsened post cath S he had mild anemia prior, will repeat CBC, check iron studies, B12 and folate [facility] Cardiology:recent ca th showed no new significant CAD H er updated medication list for this problem includes: Lisinopril 20 Mg Tablet (Lisinopril) ..... Take 1 tablet by mouth twice a day Metoprolol Succinate 25 Mg Tablet Extended Release 24 Hr (Metoprolol succinate) ..... Take 1 tablet by mouth once daily Amlodipine 5 Mg Tablet (Amlodipine) ..... Take 1 tablet by mouth once daily [facility] Cardiology:LDL 62 on last labs c ontinue on repatha H er updated medication list for this problem includes: Repatha Sureclick 140 Mg/ml Pen Injector (Evolocumab) ..... Inject 1 pen subcutaneously once every 2 weeks Candi Toussaint [employer] Cardiology:Stress te st abnormal, plan for RT/Lt/grafts cath Travon Lopez MD Cardiology: H er updated medication list for this problem includes: Lisinopril 20 Mg Tablet (Lisinopril) ..... Take 1 tablet by mouth twice daily Amlodipine 5 Mg Tablet (Amlodipine) ..... Take 1 tablet by mouth once daily Metoprolol Succinate 25 Mg Tablet Extended Release 24 Hr (Metoprolol succinate) ..... Take 1 tablet by mouth once daily BP today: 152/76 P rior BP: 124/70 (04/01/2023) Labs Reviewed: C reat: 0.77 (03/08/2021) C hol: 204 (03/08/2021) HDL: 61 (03/08/2021) LDL: 101 (03/08/2021) T (03/08/2021) Travon Lopez MD Cardiology Travon Lopez MD Cardiology:LANETTE katz for leqvio, Stop zetia for enrollment into TANDEM trial S tatin intolerant Travon Lopez MD Cardiology:Stress te st revealed abnormal perfusion in the mid anterolateral region with a moderate perfusion defect, which is medium in size and and is c ompletely reversible. In light of her risk factors, Hx of CABG, and worseing Sx of fatigue. WIll arrange for a Lt heart cath to further evaluate the finding of the stress test. The risks and benefits of the procedure, including but not limited the risk of heart attack, , stroke, bleeding, kidney failure, and loss of limb as well as the alternative of continued medical therapy, stress testing or bypass surgery were discussed with the patient and any present family members and the patient wishes to proceed with cardiac cath and stenting. The patient and family had opportunity to discuss this with us. Written material including informed consent was given out. Travon Lopez MD Cardiology Travon Lopez MD Cardiology:Schedule nuclear stre ss test Travon Lopez MD Cardiology: H er updated medication list for this problem includes: Lisinopril 20 Mg Tablet (Lisinopril) ..... Take 1 tablet by mouth twice daily Amlodipine 5 Mg Tablet (Amlodipine) ..... Take 1 tablet by mouth once daily Metoprolol Succinate 25 Mg Tablet Extended Release 24 Hr (Metoprolol succinate) ..... Take 1 tablet by mouth once daily BP today: 124/70 P rior BP: 140/96 (12/31/2022) Labs Reviewed: C reat: 0.77 (03/08/2021) C hol: 204 (03/08/2021) HDL: 61 (03/08/2021) LDL: 101 (03/08/2021) T (03/08/2021) Travon Lopez MD Cardiology:atypical chest pain, has Hx of HLD and CAD s/p CABG and removing the sternal wires has not helped. arrange for nuclear stress test Travon Lopez MD Cardiology:Seems to have improved with removal of wires but still has some. Travon Lopez MD Cardiology:BP is bet ter at home BP today: 140/96 P rior BP: 117/77 (09/24/2022) Labs Reviewed: C reat: 0.77 (03/08/2021) C hol: 204 (03/08/2021) HDL: 61 (03/08/2021) & #13;Her updated medication list for this problem includes: Lisinopril 20 Mg Tablet (Lisinopril) ..... Take 1 tablet by mouth twice daily Amlodipine 5 Mg Tablet (Amlodipine) ..... Take 1 tablet by mouth once daily Metoprolol Succinate 25 Mg Tablet Extended Release 24 Hr (Metoprolol succinate) ..... Take 1 tablet by mouth once daily Travon Lopez MD Cardiology: The following medications were removed from the medication list: Ezetimibe 10 Mg Tablet (Ezetimibe) ..... Take 1 tablet by mouth once a day Her updated medication list for this problem includes: Leqvio 284 Mg/1.5 Ml Syringe (Inclisiran) ..... Given in office only Vikash Hernandezmaximiliano RODRIGUEZ Cardiology: B P today: 117/77 P rior BP: 128/62 (03/26/2022) Labs Reviewed: C reat: 0.77 (03/08/2021) C hol: 204 (03/08/2021) HDL: 61 (03/08/2021) Her updated medication list for this problem includes: Lisinopril 20 Mg Tablet (Lisinopril) ..... Take 1 tablet by mouth twice daily Amlodipine 5 Mg Tablet (Amlodipine) ..... Take 1 tablet by mouth once daily Metoprolol Succinate 25 Mg Tablet Extended Release 24 Hr (Metoprolol succinate) ..... Take 1 tablet by mouth once daily Vikash Kera RODRIGUEZ Cardiology: C arotid Duplex 04/2022 CONCLUSIONS: 1 . 50 - 69% stenosis of the right ICA. 2 . <50% stenosis of the left ICA. 3 . Vertebral flow is antegrade bilaterally. Aileenshyann Kera RODRIGUEZ Cardiology: N o angina. Continue the Leqvio and aspirin. P atient to follow up with CTS regarding pain ? caused by some wires. Vikash Hernandezmaximiliano RODRIGUEZ Telehealth: P rior BP: 128/62 (03/26/2022) Labs Reviewed: C reat: 0.77 (03/08/2021) C hol: 204 (03/08/2021) HDL: 61 (03/08/2021) Her updated medication list for this problem includes: Amlodipine 5 Mg Tablet (Amlodipine) ..... Take 1 tablet by mouth once daily Metoprolol Succinate 25 Mg Tablet Extended Release 24 Hr (Metoprolol succinate) ..... Take 1 tablet by mouth once daily Lisinopril 20 Mg Tablet (Lisinopril) ..... Take 1 tablet by mouth twice daily Travon Lopez MD Telehealth: O n leqvio, LDL down to 93 Travon Lopez MD Telehealth Travon Lopez MD Telehealth: C ontinue the Leqvio and aspirin L p(a) is elevated and we will try to put her in the study to try to reduce her levels Travon Lopez MD Cardiology: 5 0-69% stenosis of the SHARON on her recent scan. No dizziness, near syncope, or syncope. W ill repeat her scan. Travon Lopez MD Cardiology:Having is sues with her RPM which we'll try and resolve. BP today: 128/62 P rior BP: 143/82 (12/25/2021) Her updated medication list for this problem includes: Lisinopril 20 Mg Tablet (Lisinopril) ..... Take 1 tablet by mouth twice daily Metoprolol Succinate 25 Mg Tablet Extended Release 24 Hr (Metoprolol succinate) ..... Take 1 tablet by mouth once a day take 1 tablet by mouth once a day Amlodipine 5 Mg Tablet (Amlodipine) ..... Take 1 tablet by mouth once daily Travon Lopez MD Cardiology:On medica l therapy. Her updated medication list for this problem includes: Lisinopril 20 Mg Tablet (Lisinopril) ..... Take 1 tablet by mouth twice daily Plavix 75 Mg Tablet (Clopidogrel) ..... 1 tablet by mouth once a day Metoprolol Succinate 25 Mg Tablet Extended Release 24 Hr (Metoprolol succinate) ..... Take 1 tablet by mouth once a day take 1 tablet by mouth once a day Amlodipine 5 Mg Tablet (Amlodipine) ..... Take 1 tablet by mouth once daily Travon Lopez MD Cardiology:On leqvio and she will have her lipid profile done. We will also check hsCRP and Lp(a). Travon Lopez MD Cardiology Travon Lopez MD Cardiology: H er constant chest pain isn't likely to be related to blocked arteries. Her updated medication list for this problem includes: Metoprolol Succinate 25 Mg Tablet Extended Release 24 Hr (Metoprolol succinate) ..... Take 1 tablet by mouth once a day take 1 tablet by mouth once a day Plavix 75 Mg Tablet (Clopidogrel) ..... 1 tablet by mouth once a day Amlodipine 5 Mg Tablet (Amlodipine) ..... Take 1 tablet by mouth once daily Travon Lopez MD Cardiology: H er LDL still isn't particularly well controlled on the repatha so we're going to try and give her leqvio infusions instead Travon Lopez MD Cardiology: A BI on 06/17/21 shows: 1 . Mild arterial disease of the lower extremities bilaterally. 2 . Normal JOEY, right and left 1.0. 3 . Moderate artherosclerosis bilaterally; nurmerous areas of mild stenosis. Travon Lopez MD Cardiology: B P today: 143/82 P rior BP: 150/81 (09/22/2021) H er updated medication list for this problem includes: Metoprolol Succinate 25 Mg Tablet Extended Release 24 Hr (Metoprolol succinate) ..... Take 1 tablet by mouth once a day take 1 tablet by mouth once a day Amlodipine 5 Mg Tablet (Amlodipine) ..... Take 1 tablet by mouth once daily Travon Lopez MD Cardiology: 5 0-69% stenosis of the SHARON on her recent scan. Travon Lopez MD Cardiology: W e'll recheck her carotid US. Travon Lopez MD Cardiology: S he would probably benefit from an MRI to see if her rotator cuff is torn. Travon Lopez MD Cardiology: B P today: 150/81 P rior BP: 132/79 (06/23/2021) Her updated medication list for this problem includes: Metoprolol Succinate 25 Mg Tablet Extended Release 24 Hr (Metoprolol succinate) ..... Take 1 tablet by mouth once a day take 1 tablet by mouth once a day Lisinopril 20 Mg Tablet (Lisinopril) ..... Take 1 tablet by mouth twice a day Amlodipine 5 Mg Tablet (Amlodipine) ..... Take 1 tablet by mouth once daily Travon Lopez MD Cardiology: A BI on 06/17/21 shows: 1 . Mild arterial disease of the lower extremities bilaterally. 2 . Normal JOEY, right and left 1.0. 3 . Moderate artherosclerosis bilaterally; nurmerous areas of mild stenosis. Travon Lopez MD Cardiology: S he's taking repatha once a month and zetia 10mg daily. We'll check her lipids now. Her updated medication list for this problem includes: Ezetimibe 10 Mg Tablet (Ezetimibe) ..... Take 1 tablet by mouth once a day Repatha Pushtronex 420 Mg/3.5 Ml Wearable Injector (Evolocumab) ..... Infuse 420 mg subcutaneously once a month Travon Lopez MD Cardiology: H er constant chest pain isn't likely to be related to blocked arteries. Her updated medication list for this problem includes: Metoprolol Succinate 25 Mg Tablet Extended Release 24 Hr (Metoprolol succinate) ..... Take 1 tablet by mouth once a day take 1 tablet by mouth once a day Lisinopril 20 Mg Tablet (Lisinopril) ..... Take 1 tablet by mouth twice a day Plavix 75 Mg Tablet (Clopidogrel) ..... 1 tablet by mouth once a day Amlodipine 5 Mg Tablet (Amlodipine) ..... Take 1 tablet by mouth once daily Travon Lopez MD Cardiology:JOEY on shows: 1 . Mild arterial disease of the lower extremities bilaterally. 2 . Normal JOEY, right and left 1.0. 3 . Moderate artherosclerosis bilaterally; nurmerous areas of mild stenosis. Travon Lopez MD Cardiology:Will repe at lab work in 3 month. Pt will get Repatha machine replaced. Her updated medication list for this problem includes: Ezetimibe 10 Mg Tablet (Ezetimibe) ..... Take 1 tablet by mouth once a day Repatha Pushtronex 420 Mg/3.5 Ml Wearable Injector (Evolocumab) ..... Infuse 420 mg subcutaneously once a month Travon Lopez MD Cardiology:Seems to be okay although she reported it episodically going up. Will order an RPM to monitor BP. Reduced Metoprolol to increase low HR. BP today: 132/79 P rior BP: 129/63 (05/15/2021) Labs Reviewed: C reat: 0.77 (03/08/2021) C hol: 204 (03/08/2021) HDL: 61 (03/08/2021) T he following medications were removed from the medication list: Metoprolol Succinate 50 Mg Tablet Extended Release 24 Hr (Metoprolol succinate) ..... Take 1 tablet by mouth once a day Her updated medication list for this problem includes: Metoprolol Succinate 25 Mg Tablet Extended Release 24 Hr (Metoprolol succinate) ..... Take 1 tablet by mouth once a day take 1 tablet by mouth once a day Lisinopril 20 Mg Tablet (Lisinopril) ..... Take 1 tablet by mouth twice a day Amlodipine 5 Mg Tablet (Amlodipine) ..... Take 1 tablet by mouth once daily Travon Lopez MD Cardiology:04/15/[address] Coats: I mpression: Successful RESEARCH NUTRITIONIST PCI of dominant circumflex heavily calcified lesion with CSI atherectomy. 2.25X38 & 3.0X28 s tents were placed, distal stent post dilated with 2.5, 3.0 NC balloon, proximal stent post dilated with 3.5 NC balloon. Travon Lopez MD Cardiology: H er updated medication list for this problem includes: Repatha Pushtronex 420 Mg/3.5 Ml Wearable Injector (Evolocumab) ..... Infuse 420 mg subcutaneously once a month Travon Lopez MD Cardiology:Will order an JOEY. Us pilar Lopez MD Cardiology: B P today: 129/63 P rior BP: 112/60 (02/24/2021) Labs Reviewed: C reat: 0.77 (03/08/2021) C hol: 204 (03/08/2021) HDL: 61 (03/08/2021) Her updated medication list for this problem includes: Lisinopril 20 Mg Tablet (Lisinopril) ..... Take 1 tablet by mouth twice a day Amlodipine 5 Mg Tablet (Amlodipine) ..... Take 1 tablet by mouth once daily Metoprolol Succinate 50 Mg Tablet Extended Release 24 Hr (Metoprolol succinate) ..... Take 1 tablet by mouth once a day Travon Lopez MD Cardiology: C urrently not very symptomatic. Travon Lopez MD Cardiology:Her left shoulder pain seem to be more musculoskeletal, and is not from repetitive movements. Will treat medically. Travon Lopez MD Cardiology: B P today: 112/60 P rior BP: 132/80 (12/27/2020) Her updated medication list for this problem includes: Amlodipine 5 Mg Tablet (Amlodipine) ..... Take 1 tablet by mouth once a day Metoprolol Succinate 50 Mg Tablet Extended Release 24 Hr (Metoprolol succinate) ..... Take 1 tablet by mouth once a day Lisinopril 20 Mg Tablet (Lisinopril) ..... 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 Travon Lopez MD Cardiology: N ow on repatha. Most recent LDL 258 in 11/2020. Had been on the twice weekly injection, but now is on once monthly. If it's still high, then will need to switch to either praluent or incliseran. Travon Lopez MD Cardiology Travon Lopez MD Cardiology:Stress te st is abnormal. Needs to schedule for a cardiac cath at [facility]. Her updated medication list for this problem includes: Amlodipine 5 Mg Tablet (Amlodipine) ..... Take 1 tablet by mouth once a day Metoprolol Succinate 50 Mg Tablet Extended Release 24 Hr (Metoprolol succinate) ..... Take 1 tablet by mouth once a day Lisinopril 20 Mg Tablet (Lisinopril) ..... Take 1 tablet by mouth twice a day Travon Lopez MD Cardiology: H er updated medication list for this problem includes: Repatha Pushtronex 420 Mg/3.5 Ml Wearable Injector (Evolocumab) ..... Infuse 420 mg subcutaneously once a month Travon Lopez MD Cardiology: H er updated medication list for this problem includes: Amlodipine 5 Mg Tablet (Amlodipine) ..... Take 1 tablet by mouth once a day Metoprolol Succinate 50 Mg Tablet Extended Release 24 Hr (Metoprolol succinate) ..... Take 1 tablet by mouth once a day Lisinopril 20 Mg Tablet (Lisinopril) ..... Take 1 tablet by mouth twice a day BP today: 132/80 P rior BP: 130/70 (12/20/2020) Labs Reviewed: C reat: 0.78 (05/12/2017) C hol: 370 (12/29/2019) HDL: 68 (12/29/2019) Travon Lopez MD Cardiology: H aving some chest achiness that radiates to her L arm and neck. Improves with placing a heating pad in the area. Travon Lopez MD Cardiology: O rders: S patrick Regadenoson ([id number]) Travon Lopez MD Cardiology: L abs 11/06/20 LDL of 236. I would like to get her on a monthly Repatha injection. Has not been able to tolerate lipitor or livalo in the past. Her son was recently dx with hypercholesterolemia as well. Travon Lopez MD Cardiology:recheck carotid duple x Travon Lopez MD Cardiology:will do c hest x ray and CT chest without contrast, we are looking at the sternum and to make sure there has been union of the bones. Travon Lopez MD Cardiology:Will repe at carotid US as she has stenosis of the L ICA Travon Lopez MD Cardiology: L abs 12/29/2019 revealed LDL of 268. Now on Repatha, has upcoming bloodwork per Dr. Eitan Lopez MD Cardiology Travon Lopez MD Cardiology: B P today: 124/70 P rior BP: 122/80 (03/29/2020) Labs Reviewed: C reat: 0.78 (05/12/2017) C hol: 370 (12/29/2019) HDL: 68 (12/29/2019) Travon Lopez MD Cardiology: H aving some chest achiness that radiates to her L arm and neck. Improves with placing a heating pad in the area. Previously we tried to get a stress test done but she was just put on Medicaid which has delayed things. Travon Lopez MD Cardiology Travon Lopez MD Cardiology:Decreased appetite due to poorly fit dentures and damaged gums. Travon Lopez MD Cardiology Travon Lopez MD Cardiology: H er updated medication list for this problem includes: Metoprolol Succinate Er 50 Mg Oral Tablet Extended Release 24 Hour (Metoprolol succinate) ..... Take 1 tablet by mouth once daily Amlodipine Besylate 5 Mg Oral Tablet (Amlodipine besylate) ..... Take 1 tablet by mouth once daily Lisinopril 20 Mg Oral Tablet (Lisinopril) ..... Take 1 tablet by mouth twice daily Aspirin 81 Mg Oral Tablet (Aspirin) ..... One tab.twice daily BP today: 122/80 P rior BP: 108/65 (01/08/2020) Labs Reviewed: C reat: 0.78 (05/12/2017) C hol: 370 (12/29/2019) HDL: 68 (12/29/2019) Travon Lopez MD Cardiology:Apparentl y visualized on tests she underwent with orthopedic. We will evaluate with CT Neck soft tissue Travon Lopez MD Cardiology:Having so me chest achiness that radiates to her L arm and neck. Improves with placing a heating pad in the area. We will rule out ischemia with a regadenoson Travon Lopez MD Cardiology follow up :Clincally stable but needs to be on cholesterol medication as soon as possible. We gave her 2 month supply of Repatha Travon Lopez MD Cardiology follow up : B P today: 108/65 P rior BP: 130/60 (12/08/2019) Labs Reviewed: C reat: 0.78 (05/12/2017) C hol: 370 (12/29/2019) HDL: 68 (12/29/2019) Her updated medication list for this problem includes: Metoprolol Succinate Er 50 Mg Oral Tablet Extended Release 24 Hour (Metoprolol succinate) ..... Take 1 tablet by mouth once daily Amlodipine Besylate 5 Mg Oral Tablet (Amlodipine besylate) ..... Take 1 tablet by mouth once daily Lisinopril 20 Mg Oral Tablet (Lisinopril) ..... Take 1 tablet by mouth twice daily Aspirin 81 Mg Oral Tablet (Aspirin) ..... One tab.twice daily Travon Lopez MD Cardiology follow up :Labs 12/29/2019 revealed LDL of 268. Patient has not been on Repatha since 08/2019 due to complications with insurance and miscommunications with the pharmacy. Gave 2 months of samples Travon Lopez MD Cardiology:check the carotids. U william Lopez MD Cardiology Travon Lopez MD Cardiology:will stop the amlodopine and continue the other bp meds BP today: 130/60 P rior BP: 145/69 (05/08/2019) Labs Reviewed: C reat: 0.78 (05/12/2017) C hol: 277 (05/12/2017) HDL: 52 (05/12/2017) Travon Lopez MD Cardiology Travon Lopez MD Cardiology:will check her echo a nd carotid US Travon Lopez MD Cardiology Travon Lopez MD Cardiology Travon Lopez MD Cardiology: B P today: 145/69 P rior BP: 133/70 (11/25/2018) Labs Reviewed: C reat: 0.78 (05/12/2017) C hol: 277 (05/12/2017) HDL: 52 (05/12/2017) Travon Lopez MD Cardiology:Will do a n upper extremity JOEY. It seems the patient is symptomatic from this. Travon Lopez MD Cardiology Travon Lopez MD Cardiology:Continue medical therapy. Will try to get her Pcsk9 restarted. Otherwise, should continue taking medications. Travno Lopez MD Cardiology:Will rech chema carotid duplex at six month follow up. Travon Lopez MD Cardiology: B P today: 133/70 P rior BP: 116/60 (07/08/2018) Labs Reviewed: C reat: 0.78 (05/12/2017) C hol: 277 (05/12/2017) HDL: 52 (05/12/2017) Travon Lopez MD Cardiology Travon Lopez MD Cardiology:On repatha Travon hill MD Cardiology:Will recheck lipids i n a month. Travon Lopez MD Cardiology: < 50% stenosis B/L Travon Lopez MD Cardiology Travon Lopez MD Cardiology: B P today: 116/60 P rior BP: 145/68 (04/29/2018) Labs Reviewed: C reat: 0.78 (05/12/2017) C hol: 277 (05/12/2017) HDL: 52 (05/12/2017) Travon Lopez MD Cardiology: a s above Travon Lopez MD Cardiology: w ill try to get her onto assistance for repatha as she cannot tolerate statins and she has LDL >200. she has tried lipitor, zocor, pravachol, and she could not tolerate any of these. Travon Lopez MD Cardiology: B P today: 145/68 P rior BP: 148/70 (09/10/2017) Travon Lopez MD Cardiology:as above. 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 Travon Lopez MD Cardiology:Recommend repeating c arotid doppler. Travon Lopez MD Cardiology:Recommend repeating echo. She has not been on her Repatha and will try to restart therapy now. Travon Lopez MD Cardiology: B P today: 148/70 P rior BP: 175/77 (06/24/2017) Labs Reviewed: C reat: 0.78 (05/12/2017) C hol: 277 (05/12/2017) HDL: 52 (05/12/2017) Travon Lopez MD Cardiology:Will do c arotid duplex to assess for any restenosis Travon Lopez MD Cardiology:She is cu rrently on Repatha, she is to have an FLP to see its effect. Travon Lopez MD Cardiology:stable. Travon Lopez MD Cardiology Travon Lopez MD Cardiology:Will repe at JOEY as, despite angioplasty and opening of SFA, her leg pain continues. Travon Lopez MD Cardiology:Patient w as stressed today. Normally well controlled. BP today: 175/77 P rior BP: 120/70 (05/07/2017) Labs Reviewed: C reat: 0.78 (05/12/2017) C hol: 277 (05/12/2017) HDL: 52 (05/12/2017) Travon Lopez MD Cardiology:Statin in tolerant. H er updated medication list for this problem includes: Zetia 10 Mg Oral Tablet (Ezetimibe) ..... One tab. daily Travon Lopez MD Cardiology:Repeat carotid duplex . Travon Lopez MD Cardiology:C/o incre ased leg pain occuring at night that will cause her to wake up in pain. L eft > Right. L eft JOEY 0.66, Right JOEY 0.74. W ill schedule for AIF. Travon Lopez MD Cardiology Travon Lopez MD Cardiology Travon Lopez MD Cardiology: H er updated medication list for this problem includes: Zetia 10 Mg Oral Tablet (Ezetimibe) ..... One tab. daily Travon Lopez MD Cardiology: B P today: 120/70 P rior BP: 120/70 (03/26/2017) Labs Reviewed: C reat: 0.76 (03/19/2017) C hol: 315 (03/19/2017) HDL: 52 (03/19/2017) LDL: 222 MG/DL (CALC) (03/19/2017) T (03/19/2017) Travon Lopez MD Cardiology follow up Travon dumont MD Cardiology follow up :The Patient was reencouraged to stop smoking. Travon Lopez MD Cardiology follow up :Recent JOEY showed Right of 0.75, Left 0.66. However, patient experiences leg pain only at night or with heavy, extended exertion. I nstances are quite intermittent with no recurrence in the past 3 weeks. Travon Lopez MD Cardiology follow up : B P today: 120/70 P rior BP: 129/75 (03/05/2017) Labs Reviewed: C reat: 0.76 (03/19/2017) C hol: 315 (03/19/2017) HDL: 52 (03/19/2017) LDL: 222 MG/DL (CALC) (03/19/2017) T (03/19/2017) Travon Lopez MD Cardiology follow up :off statin due to muscle pains. Lipid panel showed elevated TRgs and elevated LDL. W ill see if she is candidate for PCSK9 antibody study. Travon Lopez MD Cardiology: B P today: 129/75 P rior BP: 140/76 (08/15/2015) Travon Lopez MD Cardiology:off stati n due to muscle pains. Check lipid panel. Travon Lopez MD Cardiology: JOEY 04/20 15 showed: 1 . Elevated velocities in the proximal left femoral artery. JOEY's indicate moderate arterial disease of t he left lower extremity. 2 . Mild artherosclerosis in the right femoral artery. Normal JOEY in the right lower extremity Will repeat JOEY,. Complaining of left leg pain. Travon Lopez MD Cardiology:140/76 Travon Juarez Cardiology:The Patie nt was reencouraged to stop smoking. Travon Lopez MD Cardiology:Reccommend AIF. Possi ble intervention. Travon Lopez MD Cardiology:Refer to vascular hernesto geon. Travon Lopez MD Cardiology:Unable to tolerate Li pitor Travon Lopez MD Cardiology: B P today: 139/80 P rior BP: 129/72 (05/16/2015) Travon Lopez MD Cardiology:JOEY upper extremities (06/13/2015) C onclusions: 1 . 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 2 . Normal arterial flow of the right upper extremity. Travon Lopez MD Cardiology:JOEY upper extremities (06/13/2015) C onclusions: 1 . 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 2 . Normal arterial flow of the right upper extremity. Travon Lopez MD Cardiology:Will get upper extremity arterial doppler Travon Lopez MD Cardiology:Recently started on L ipitor Travon Lopez MD Cardiology:The Patie nt was encouraged to stop smoking. Travon Lopez MD Cardiology: B P today: 129/72 Travon Lopez MD Cardiology:Conclusio ns: 1 . Elevated velocities in the proximal left femoral artery. JOEY's indicate moderate arterial disease of t he left lower extremity. 2 . Mild artherosclerosis in the right femoral artery. Normal JOEY in the right lower extremity. Travon Lopez MD Date Name Complete Echo Holter Monitor 48 hr Monitor - Telemetry (Mobile Cardiac) Carotid Duplex Bilat eral VITAMIN B12/FOLATE, SERUM PANEL BASIC METABOLIC PANE L W/EGFR TSH, free T4, total T3 IRON AND TOTAL IRON BINDING CAPACITY FERRITIN CBC (INCLUDES DIFF/P LT) Arterial Duplex to r /o pseudoanuerysm PROTHROMBIN TIME WIT H INR LIPID PANEL CBC (INCLUDES DIFF/P LT) BASIC METABOLIC PANE L W/EGFR Stress Regadenoson LIPID PANEL COMPREHENSIVE METABO LIC PANEL, W/EGFR Lipoprotein (a) LIPID PANEL Lipoprotein (a) LIPID PANEL COMPREHENSIVE METABO LIC PANEL, W/EGFR LIPID PANEL Complete Echo Carotid Duplex Bilat eral CRP, high sensitivit y Lipoprotein (a) LIPID PANEL Carotid Duplex Bilat eral RPM (remote patient monitoring) COMPREHENSIVE METABO LIC PANEL, W/EGFR LIPID PANEL COMPREHENSIVE METABO LIC PANEL, W/EGFR LIPID PANEL Arterial Duplex Bi-L ower EX PROTHROMBIN TIME WIT H INR LIPID PANEL CBC (INCLUDES DIFF/P LT) BASIC METABOLIC PANE L W/EGFR Coronary Stent - CNE BASIC METABOLIC PANE L W/EGFR LIPID PANEL PROTHROMBIN TIME WIT H INR CBC (INCLUDES DIFF/P LT) BASIC METABOLIC PANE L W/EGFR LIPID PANEL Stress Regadenoson Carotid Duplex Bilat eral LIPID PANEL CT Chest without con trast CXR- PA/Lat Carotid Duplex Bilat eral Stress Regadenoson CT Neck, Soft Tissue with contrast LIPID PANEL Carotid Duplex Bilat eral Complete Echo Arterial Duplex Uppe r Extremity Bilateral Carotid Duplex Bilat eral COMPREHENSIVE METABO LIC PANEL, W/EGFR LIPID PANEL Arterial Duplex Bi-L ower EX Carotid Duplex Bilat eral Complete Echo Carotid Duplex Bilat eral Complete Echo Arterial Duplex Bi-L ower EX PROTHROMBIN TIME WIT H INR CBC (INCLUDES DIFF/P LT) BASIC METABOLIC PANE L W/EGFR LIPID PANEL Carotid Duplex Bilat eral AIF Intervention - G C Complete Echo Arterial Duplex Bi-L ower EX HEPATIC FUNCTION NARANJO EL COMPREHENSIVE METABO LIC PANEL, W/EGFR BASIC METABOLIC PANE L W/EGFR Arterial Duplex Bi-L ower EX LIPID PANEL PROTHROMBIN TIME WIT H INR CBC (INCLUDES DIFF/P LT) LIPID PANEL BASIC METABOLIC PANE L W/EGFR AIF - GC STR - Adenosine Complete Echo Arterial Duplex Uppe r Extremity Bilateral HISTORY OF PROCEDURES Procedure Date Procedure Name Provider Procedure Notes S tatus Complex e/m visit add on Travon Lopez MD completed EKG Travon Lopez MD completed EKG Travon Lopez MD completed EKG Travon Lopez MD completed EKG Travon Lopez MD completed EKG Travon Lopez MD completed SNOMED-CT: 56425182 Physical Exam, Performed: Pulse Exam of Foot Travon Lopez MD completed SNOMED-CT: [id number] Current Medications Documented Travon Lopez MD completed EKG Travon Lopez MD completed SNOMED-CT: [id number] Current Medications Documented rTavon Lopez MD completed SNOMED-CT: [id number] Smoking Cessation Counseling Travon Lopez MD completed SNOMED-CT: [id number] Physical Exam, Performed: Pulse Exam of Foot Travon Lopez MD completed SNOMED-CT: [id number] Current Medications Documented Travon Lopez MD completed Stress EKG Rk Barney MD complete d Regadenoson, 4 units Travon Lopez MD completed Cardiolite, 2 units Travon Lopez MD completed SPECT Images Sharmila Owen MD completed SNOMED-CT: [id number] Smoking Cessation Counseling Travon Lopez MD completed SNOMED-CT: [id number] Physical Exam, Performed: Pulse Exam of Foot Travon Lopez MD completed SNOMED-CT: 755950694 [id number] Current Medications Documented Travon Lopez MD completed SNOMED-CT: [id number] Smoking Cessation Counseling Travon Lopez MD completed SNOMED-CT: 90200016 Physical Exam, Performed: Pulse Exam of Foot Travon Lopez MD completed EKG Travon Lopez MD completed SNOMED-CT: [id number] [id number] Current Medications Documented Travon Lopez MD completed
--- OUTSIDE RECORDS SUMMARY | 2024-06-29 14:07 | XMS_ITS | Encounter Summary ---
Author Organization [facility] Facility Care Team Providers Care Naturopathic Doctor Name Role Phone Unknown, Notinfile Primary Care Provider Unavail able Unknown, Notinfile Primary Care Provider Unavail able Travon Lopez MD Unavailable Unknown, Notinfile Primary Care Provider Unavail able Vikas Nolasco MD Unavailable Vlad Laird MD Primary Care Provider Encounter Details Date Type Department Care Team (Latest Contact Info) Description 09/25/2016 Orders Only [facility] CLINCON[facility] ProviderGretel MD [address] [place] [id number] Social History Tobacco Use Types Packs/Day Years Used Date Smoking Tobacco: Never Assessed Comments Unknown Sex and Gender Information Value Date Recorded Sex Assigned at Not on file 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 us Historical Provider Final Res ult documented in this encounter Visit Diagnoses Not on filedocumented in this encounter Care Teams Naturopathic Doctor Relationship Specialty Start Date End Date Unknown, Notinfile PCP - General 12/27/20 02/04/21 Unknown, Notinfile PCP - General 02/05/21 02/05/21 Unknown, Notinfile PCP - General 02/06/21 11/24/23 Vlad Laird MD [address] [facility] [address] [place] [address] PCP - General Internal Medicine 11/25/23 Travon Lopez MD [address] [place] [address] Consulting Physician Cardiovascular Disease 02/06/21 Vikas Nolasco MD [address] [place] [address] Consulting Physician Pain Management 07/07/22 documented as of this encounter
--- OUTSIDE RECORDS SUMMARY | 2024-06-29 14:07 | XMS_ITS | Encounter Summary ---
Author Organization [facility] Healthcare Address [address] [place] [address] Care Team Providers Care Slag Expander Name Role Phone Travon Lopez MD Unavailable Unknown, Notinfile Primary Care Provider Unavail able Vikas Nolasco MD Unavailable Vlad Laird MD Primary Care Provider Reason for Visit * Reason Onset Date Comments Med Refill 08/25/2022 Pt inquired if t he prescription for flexeril was refilled. Left message to inform her that it was sent to her pharmacy. Encounter Details Date Type Department Care Team (Late st Contact Info) Description 08/25/2022 Telephone [facility] Pain [address] [id number] Zulma Sandoval RN Med Refill (Pt inquired if the prescription for flexeril was refilled. Left message to inform her that it was sent to her pharmacy.) Social History Tobacco Use Types Packs/Day Years Used Date Smoking Tobacco: Former Cigarettes Q uit: 2016 Smokeless Tobacco: Never AUDIT-C Answer Date Recorded Q1: How often do you have a drink containing alc ohol? Monthly or less 07/13/2022 Q2: How many drinks containi ng alcohol do you have on a typical day when you are drinking? 1 or 2 07/13/2022 Q3: How often do you have si x or more drinks on one occasion? 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 Gender Identity Not on file Sexual Orientation Not on file documented as of this encounter Plan of Treatment Not on file documented as of this encounter Visit Diagnoses Not on filedocumented in this encounter Care Teams Slag Expander Relationship Specialty Start Date End Date Unknown, Notinfile PCP - General 02/06/21 11/24/23 Vlad Laird MD [address] [address] PCP - General Internal Medicine 11/25/23 Travon Lopez MD [address] [place] [address] Consulting Physician Cardiovascular Disease 02/06/21 Vikas Nolasco MD Consulting Physician Pain Management 07/07/22 documented as of this encounter
--- OUTSIDE RECORDS SUMMARY | 2024-06-29 14:08 | XMS_ITS | Encounter Summary ---
Author Organization [facility] Facility Care Team Providers Care Special Projects Manager Name Role Phone Unknown, Notinfile Primary Care Provider Unavail able Unknown, Notinfile Primary Care Provider Unavail able Travon Lopez MD Unavailable Unknown, Notinfile Primary Care Provider Unavail able Vikas Nolasco MD Unavailable Vlad Laird MD Primary Care Provider Encounter Details Date Type Department Care Team (Latest Contact Info) Description 12/21/2015 Orders Only [facility] CLINCON[facility] ProviderGretel MD [address] [place] [id number] Social History Tobacco Use Types Packs/Day Years Used Date Smoking Tobacco: Never Assessed Comments Unknown Sex and Gender Information Value Date Recorded Sex Assigned at Not on file 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 us Gretel Provider [facility] Final Result documented in this encounter Visit Diagnoses Not on filedocumented in this encounter Care Teams Special Projects Manager Relationship Specialty Start Date End Date Unknown, Notinfile PCP - General 12/27/20 02/04/21 Unknown, Notinfile PCP - General 02/05/21 02/05/21 Unknown, Notinfile PCP - General 02/06/21 11/24/23 Vlad Laird MD [address] [facility] [address] [place] [address] PCP - General Internal Medicine 11/25/23 Travon Lopez MD [address] [place] [address] Consulting Physician Cardiovascular Disease 02/06/21 Vikas Nolasco MD [address] [place] [address] Consulting Physician Pain Management 07/07/22 documented as of this encounter
--- OUTSIDE RECORDS SUMMARY | 2024-06-29 14:08 | XMS_ITS | Data Portability ---
Author Organization [place] [facility] [employer], Main Office Address [address] [place] [address] Assessment Encounter Date Assessment Date Assessment LastModified by Organization Details LastModified Time 09/09/2023 09/09/2023 This note is dictated and transcribed by [employer]. Central Service Technician variances may occur. Despite proofreading, typographical errors may occur. Occasional wrong-word or 'wzggi-i-lhje' substitutions may have occurred due to the inherent limitations of voice recording. Read the chart carefully and recognize, using context, where substitutions have occurred. [email or web address] Not available 09/29/2023 15:38:33 Plan of Treatment Reminders Order Date Submit Date Provider Last Modified By Organization Details Last Modified Time Details Appointments None recorded . Lab lipid panel, serum 025 03/13/19 25 [facility], [address] [place], [address], 5 16:04:10 CMP, serum or plasma 025 03/13/19 25 [email or web address] [facility] [place] [facility], [address] [place], [address], 5 16:04:11 T4, free, serum 025 03/13/19 25 [email or web address] [facility] [place] [facility], [address] [place], [address], 5 16:04:11 TSH, serum or plasma 025 03/13/19 25 [email or web address] [facility] [place] [facility], [address] [place], [address], 5 16:04:11 CBC w/ auto diff 025 03/13/19 25 [email or web address] [facility] [place] [facility], [address] [place], [address], 5 16:04:11 lipid panel, serum 024 11/08/19 24 [facility], [address] [place], [address], 4 13:36:49 CMP, serum or plasma 024 11/08/19 24 [facility], [address] [place], [address], 4 13:37:00 T4, free, serum 024 11/08/19 24 [facility], [address] [place], [address], 4 13:47:11 TSH, serum or plasma 024 11/08/19 24 [facility], [address] [place], [address], 4 13:46:57 T3, free, serum or plasma 024 11/08/19 24 [facility], [address] [place], [address], 4 13:47:15 Referral None recorded . Procedures None recorded . Surgeries None recorded . Imaging None recorded . Medication Orders None recorded . Patient TargetsNo targets recorded. Patient Instructions Encounter Date Encounter Id Patient Instructions Last Modified By Organization Details Last Modified Time 07/05/2023 [id number] Follow-up for coronary artery disease, hypertension, hyperlipidemia, peripheral vascular disease and carotid stenosis all clinically stable. Overall has been doing well otherwise. Is up-to-date on most studies. Does need a mammogram. Does not need a colonoscopy until 2028. Will continue on current Rx and follow-up in four months. Mammogram Next Appointment: 4 Months Approximate Date: 11/02/2023 Portions of the record may have been created with voice recognition software. Occasional wrong-word or s ound-a-like substitutions may have occurred due to the inherent limitations of voice recognition software. Read the chart carefully and recognize, using context, where substitutions have occurred. [email or web address] Not available 07/05/2023 15:37:27 11/08/2023 [id number] Follow-up jasso ry artery disease, essential hypertension, hyperlipidemia and peripheral vascular disease all clinically stable. No interval complaints any new problems. He is asking about her thyroid test which we have no results of. Apparently has had multiple small thyroid nodules two of which had needle aspirate biopsies all negative. Not sure why there setting up with Endocrinology them. Continue on current Rx. Check a CBC, CMP, lipid, free T4, free T3 and TSH level. Next Appointment: 4 Months Approximate Date: 03/07/2024 Portions of the record may have been created with voice recognition software. Occasional wrong-word or s ound-a-like substitutions may have occurred due to the inherent limitations of voice recognition software. Read the chart carefully and recognize, using context, where substitutions have occurred. [email or web address] Not available 11/08/2023 15:31:07 12/22/2023 [id number] Right radiculopa thy of the arm etiology which is somewhat obscure. Will set up for a nerve conduction study of the hand. Continue with current Rx at this time. May need further imaging studies pending the result of this test. No other evidence of any type of thoracic outlet syndrome. May need to consider evaluating this further as well. Additional Orders - Directives - Recommendations 1. Nerve conduction study of the right arm 2. CT scan of the chest without contrast for possible right neurogenic thoracic outlet syndrome. Keep Appointment: Wed 01:40 PM [place] Portions of the record may have been created with voice recognition software. Occasional wrong-word or s ound-a-like substitutions may have occurred due to the inherent limitations of voice recognition software. Read the chart carefully and recognize, using context, where substitutions have occurred. [email or web address] Not available 12/22/2023 15:44:54 03/13/2024 [id number] Follow-up jasso ry artery disease, essential hypertension, left-sided carotid stenosis by history as well as peripheral vascular disease all clinically stable. No interval complaints of any new problems. Will check blood work consisting of CBC, CMP and lipid panel. Continue on current Rx and follow-up in four months Follow Up: 4 Months Approximate Date: 07/11/2024 Portions of the record may have been created with voice recognition software. Occasional wrong-word or s ound-a-like substitutions may have occurred due to the inherent limitations of voice recognition software. Read the chart carefully and recognize, using context, where substitutions have occurred. Created: Richie Laird M.D. 03.13.2024 02:18 PM Not available 03/13/2024 15:18:25 Reason for Referral None Reported. Results Created Date Observation Date Name Description Value Unit Range Abnormal Flag Note LastModifiedBy Organization Detail LastModifiedTime 11/12/1911/12/2023 LIPID PANEL cholesterol 211 mg/dL 140-19 9 high NIH RONALD NSUS RECOM MENDA TION FOR DEISY STERO L: ADULT CHILD LOW RISK: <200 <170 BORDE RLINE : <200- 239 ----- HIGH RISK: >240 >200 Not Available [facility] (Lab) [address] [place], [address], 11/12/2023 13:36:49 11/12/1911/12/2023 LIPID PANEL triglyceride s 229 mg/dL 0-150 high NIH RONALD NSUS REPOR T RECOM MENDA TION FOR TRIGL YCERI JOSH: ADULT CHILD LOW RISK: <150 ----- BODER LINE: 150-1 99 ----- HIGH RISK: >200 ----- Not Available [facility] (Lab) [address] [place], [address], 11/12/2023 13:36:49 11/12/1911/12/2023 LIPID PANEL HDL cholesterol 67 mg/dL 40- Not Available [facility] (Lab) [address] [place], [address], 11/12/2023 13:36:49 11/12/1911/12/2023 LIPID PANEL LDL cholesterol, calculated 98 mg/dL 0-130 NIH RONALD NSUS REPOR T RECOM MENDA TIONS FOR LDL: ADULT CHILD LOW RISK <130 <110 (OPTI MAL LDL) <100 ----- BORDE RLINE : 130-1 59 ----- HIGH RISK: >160 >130 A TRIGL YCERI DE RESUL T >400 INVAL IDATE S THE CALCU LATIO N FOR LDL FRACT IONAT ION - THE LDL RESUL T WILL NOT BE REPOR WEST. Not Available [facility] (Lab) [address] [place], [address], 11/12/2023 13:36:49 11/12/19 24 11/12/2023 COMPR EHENS ERIN METAB OLIC PANEL sodium 136 mmol/ L 137-14 5 low Not Available [facility] (Lab) [address] [place], [address], 11/12/2023 13:37:00 11/12/19 24 11/12/2023 COMPR EHENS ERIN METAB OLIC PANEL potassium 4.4 mmol/ L 3.5-5. 1 Not Available [facility] (Lab) [address] [place], [address], 11/12/2023 13:37:00 11/12/19 24 11/12/2023 COMPR EHENS ERIN METAB OLIC PANEL chloride 106 mmol/ L 98-107 Not Available [facility] (Lab) [address] [place], [address], 11/12/2023 13:37:00 11/12/19 24 11/12/2023 COMPR EHENS ERIN METAB OLIC PANEL carbon dioxide 27 mmol/ L 22-30 Not Available [facility] (Lab) [address] [place], [address], 11/12/2023 13:37:00 11/12/19 24 11/12/2023 COMPR EHENS ERIN METAB OLIC PANEL anion gap 7.4 mmol/ L 14-22 low Not Available [facility] (Lab) [address] [place], [address], 11/12/2023 13:37:00 11/12/19 24 11/12/2023 COMPR EHENS ERIN METAB OLIC PANEL glucose 95 mg/dL 70-99 Not Available [facility] (Lab) [address] [place], [address], 11/12/2023 13:37:00 11/12/19 24 11/12/2023 COMPR EHENS ERIN METAB OLIC PANEL BUN 20 mg/dL 8-19 high Not Available [facility] (Lab) [address] [place], [address], 11/12/2023 13:37:00 11/12/19 24 11/12/2023 COMPR EHENS ERIN METAB OLIC PANEL creatinine 0.98 mg/dL 0.66-1 .25 Not Available [facility] (Lab) [address] [place], [address], 11/12/2023 13:37:00 11/12/19 24 11/12/2023 COMPR EHENS ERIN METAB OLIC PANEL GFR 56 Refer ence Range : [place] ge GFR Healt hy Adult : >60 mL/mi n/1.7 3 m2 Chron ic Kidne y Disea se: 15-60 mL/mi n/1.7 3 m2 Kidne y Failu re: <15/m L/min /1.73 m2 www.n iddk. nih.g ov The MDRD study equat ion has not been valid ated in child guerrero <18 years of age; pregn ant women ; the elder ly >85 years of age; or in some racia l or ethni c subgr oups, such as Hispa nics. Outsi de the valid ated sheridan eters , estim ated GFR is less accur ate, requi ring clini maria eugenia judgm ent on a case- by-ca se basis . Clini maria eugenia inter preta tion for other races and ages must be made by the clini tank. The MDRD study equat ion has not been valid ated for the evalu ation of serum creat inine relat ed to nutri sal l statu s or medic ation usage . For perso ns <18 years of age, a pedia tric GFR calcu lator is avail able on the [facility] websi te: https ://[place]nie [place].o merlin/pr ofess ional s/kdo qi/gf r_cal culat or Not Available [facility] (Lab) [address] [place], [address], 11/12/2023 13:37:00 11/12/19 24 11/12/2023 COMPR EHENS ERIN METAB OLIC PANEL alkaline phosphatase 66 U/L 38-126 Not Available [facility] (Lab) [address] [place], [address], 11/12/2023 13:37:00 11/12/19 24 11/12/2023 COMPR EHENS ERIN METAB OLIC PANEL alanine aminotransfe rase 14 U/L 0-35 Not Available [facility] (Lab) [address] [place], [address], 11/12/2023 13:37:00 11/12/19 24 11/12/2023 COMPR EHENS ERIN METAB OLIC PANEL aspartate aminotransfe rase 23 U/L 15-37 Not Available [facility] (Lab) [address] [place], [address], 11/12/2023 13:37:00 11/12/19 24 11/12/2023 COMPR EHENS ERIN METAB OLIC PANEL bilirubin, total 0.20 mg/dL 0.20-1 .30 Not Available [facility] (Lab) [address] [place], [address], 11/12/2023 13:37:00 11/12/19 24 11/12/2023 COMPR EHENS ERIN METAB OLIC PANEL calcium 9.7 mg/dL 8.4-10 .2 Not Available [facility] (Lab) [address] [place], [address], 11/12/2023 13:37:00 11/12/19 24 11/12/2023 COMPR EHENS ERIN METAB OLIC PANEL total protein 7.2 g/dL 6.3-8. 2 Not Available [facility] (Lab) [address] [place], [address], 11/12/2023 13:37:00 11/12/19 24 11/12/2023 COMPR EHENS ERIN METAB OLIC PANEL albumin 4.4 g/dL 3.0-4. 4 Not Available [facility] (Lab) [address] [place], [address], 11/12/2023 13:37:00 11/12/19 24 11/12/2023 COMPR EHENS ERIN METAB OLIC PANEL globulin 2.8 g/dL 2.6-4. 2 Not Available [facility] (Lab) [address] [place], [address], 11/12/2023 13:37:00 11/12/19 24 11/12/2023 COMPR EHENS ERIN METAB OLIC PANEL A/G ratio 1.6 ratio 1.0-2. 0 Not Available [facility] (Lab) [address] [place], [address], 11/12/2023 13:37:00 11/12/19 24 11/12/2023 TSH thyroid-stim ulating hormone 0.746 uIU/m L 0.465- 4.680 Not Available [facility] (Lab) [address] [place], [address], 11/12/2023 13:46:57 11/12/19 24 11/12/2023 T4 FREE free T4 0.94 NG/dL 0.78-2 .19 Not Available [facility] (Lab) [address] [place], [address], 11/12/2023 13:47:11 11/12/19 24 11/12/2023 T3 FREE free T3 3.9 pg/mL 2.77-5 .27 Not Available [facility] (Lab) [address] [place], [address], 11/12/2023 13:47:15 11/23/19 24 11/23/2023 COVID -19, INFLU HANNAH A+B, PCR sars-cov-2 RNA(covid19) ,RT-PCR NEGATI VE This test has been autho rized by the FDA under an Emerg ency Use Autho rizat ion (EUA) for use by autho rized labor atori es. Negat erin resul ts do not precl ude SARS- CoV-2 and shoul d not be used as the sole basis for treat ment or other patie nt manag ement decis ions. Test resul ts shoul d be corre lated with the clini maria eugenia histo ry, epide miolo gical data, and other data avail able to the clini tank evalu ating the patie nt. Charley hadley w the Fact Sheet s for healt h care provi ders and patie nts at the [facility] jabier: https ://ww w.fda .gov/ media /1363 12/do wnloa d https ://ww w.fda .gov/ media /1363 13/do wnloa d Metho dolog y: Real- Time RT-PC R Not Available [facility] (Lab) [address] [place], [address], 11/23/2023 14:59:15 11/23/19 24 11/23/2023 COVID -19, INFLU HANNAH A+B, PCR influenza A RNA, RT-PCR NEGATI VE Not Available [facility] (Lab) [address] [place], [address], 11/23/2023 14:59:15 11/23/19 24 11/23/2023 COVID -19, INFLU HANNAH A+B, PCR influenza B RNA, RT-PCR NEGATI VE Not Available [facility] (Lab) [address] [place], [address], 11/23/2023 14:59:15 12/28/1912/28/2023 COVID -19, INFLU HANNAH A+B, PCR sars-cov-2 RNA(covid19) ,RT-PCR POSITI VE abnormal This test has been autho rized by the FDA under an Emerg ency Use Autho rizat ion (EUA) for use by autho rized labor atori es. Negat erin resul ts do not precl ude SARS- CoV-2 and shoul d not be used as the sole basis for treat ment or other patie nt manag ement decis ions. Test resul ts shoul d be corre lated with the clini maria eugenia histo ry, epide miolo gical data, and other data avail able to the clini tank evalu ating the patie nt. Charley hadley w the Fact Sheet s for healt h care provi ders and patie nts at the [facility] jabier: https ://ww w.fda .gov/ media /1363 12/do wnloa d https ://ww w.fda .gov/ media /1363 13/do wnloa d Metho dolog y: Real- Time RT-PC R Not Available [facility] (Lab) [address] [place], [address], 12/28/2023 16:25:11 12/28/1912/28/2023 COVID -19, INFLU HANNAH A+B, PCR influenza A RNA, RT-PCR NEGATI VE Not Available [facility] (Lab) [address] [place], [address], 12/28/2023 16:25:11 12/28/1912/28/2023 COVID -19, INFLU HANNAH A+B, PCR influenza B RNA, RT-PCR NEGATI VE abnormal Not Available [facility] (Lab) [address] [place], [address], 12/28/2023 16:25:11 05/07/19 25 05/07/2024 LIPID PANEL , STAND CHRISTINA cholesterol, total 221 mg/dL <200 high Not Available [address], [address], 05/07/2024 12:42:54 05/07/19 25 05/07/2024 LIPID PANEL , STAND CHRISTINA HDL cholesterol 60 mg/dL > or = 50 normal Not Available [address], [address], 05/07/2024 12:42:54 05/07/19 25 05/07/2024 LIPID PANEL , STAND CHRISTINA triglyceride s 116 mg/dL <150 normal Not Available [address], [address], 05/07/2024 12:42:54 05/07/19 25 05/07/2024 LIPID PANEL , STAND CHRISTINA LDL-choleste rol 138 mg/dL _(maria eugenia c) high Refer ence range : <100 Nini able range <100 mg/dL for prima ry preve ntion ; <70 mg/dL for patie nts with CHD or diabe tic patie nts with > or = 2 CHD risk facto rs. LDL-C is now calcu lated using the Nargis n-Hop kins calcu jesus n, which is a valid ated novel metho d thuyi tam wilcoxte r accur acy than the Fried corona equat ion in the estim ation of LDL-C . Nargis salazar SS et al. PING. 2013; 310(1 9): 2061- 2068 (http ://ed ucati on.Qu Aneta Almondys. com/f aq/FA Q164) Not Available [address], [address], 05/07/2024 12:42:54 05/07/19 25 05/07/2024 LIPID PANEL , STAND CHRISTINA chol/HDLC ratio 3.7 (calc ) <5.0 normal Not Available [address], [address], 05/07/2024 12:42:54 05/07/19 25 05/07/2024 LIPID PANEL , STAND CHRISTINA non HDL cholesterol 161 mg/dL _(maria eugenia c) <130 high For patie nts with diabe jabier plus 1 major ASCVD risk facto r, treat ing to a non-H DL-C goal of <100 mg/dL (LDL- C of <70 mg/dL ) is consi dered a thera peuti c optio n. Not Available [address], [address], 05/07/2024 12:42:54 05/07/19 25 05/07/2024 COMPR EHENS ERIN METAB OLIC PANEL glucose 90 mg/dL 65-99 normal Fasti ng refer ence inter tomeka Not Available [address], [address], 05/07/2024 12:42:56 05/07/19 25 05/07/2024 COMPR EHENS ERIN METAB OLIC PANEL urea nitrogen (BUN) 16 mg/dL 7-25 normal Not Available [address], [address], 05/07/2024 12:42:56 05/07/19 25 05/07/2024 COMPR EHENS ERIN METAB OLIC PANEL creatinine 1.03 mg/dL 0.50-1 .05 normal Not Available [address], [address], 05/07/2024 12:42:56 05/07/19 25 05/07/2024 COMPR EHENS ERIN METAB OLIC PANEL eGFR 59 mL/mi n/1.7 3m2 > or = 60 low Not Available [address], [address], 05/07/2024 12:42:56 05/07/19 25 05/07/2024 COMPR EHENS ERIN METAB OLIC PANEL BUN/creatini ne ratio SEE NOTE: (calc ) 6-22 Not Repor west: BUN and Creat inine are withi n refer ence range . Not Available [address], [address], 05/07/2024 12:42:56 05/07/19 25 05/07/2024 COMPR EHENS ERIN METAB OLIC PANEL sodium 137 mmol/ L 135-14 6 normal Not Available [address], [address], 05/07/2024 12:42:56 05/07/19 25 05/07/2024 COMPR EHENS ERIN METAB OLIC PANEL potassium 4.1 mmol/ L 3.5-5. 3 normal Not Available [address], [address], 05/07/2024 12:42:56 05/07/19 25 05/07/2024 COMPR EHENS ERIN METAB OLIC PANEL chloride 102 mmol/ L 98-110 normal Not Available [address], [address], 05/07/2024 12:42:56 05/07/19 25 05/07/2024 COMPR EHENS ERIN METAB OLIC PANEL carbon dioxide 29 mmol/ L 20-32 normal Not Available [address], [address], 05/07/2024 12:42:56 05/07/19 25 05/07/2024 COMPR EHENS ERIN METAB OLIC PANEL calcium 9.8 mg/dL 8.6-10 .4 normal Not Available [address], [address], 05/07/2024 12:42:56 05/07/19 25 05/07/2024 COMPR EHENS ERIN METAB OLIC PANEL protein, total 6.7 g/dL 6.1-8. 1 normal Not Available [address], [address], 05/07/2024 12:42:56 05/07/19 25 05/07/2024 COMPR EHENS ERIN METAB OLIC PANEL albumin 4.3 g/dL 3.6-5. 1 normal Not Available [address], [address], 05/07/2024 12:42:56 05/07/19 25 05/07/2024 COMPR EHENS ERIN METAB OLIC PANEL globulin 2.4 g/dL_ (calc ) 1.9-3. 7 normal Not Available [address], [address], 05/07/2024 12:42:56 05/07/19 25 05/07/2024 COMPR EHENS ERIN METAB OLIC PANEL albumin/glob ulin ratio 1.8 (calc ) 1.0-2. 5 normal Not Available [address], [address], 05/07/2024 12:42:56 05/07/19 25 05/07/2024 COMPR EHENS ERIN METAB OLIC PANEL bilirubin, total 0.4 mg/dL 0.2-1. 2 normal Not Available [address], [address], 05/07/2024 12:42:56 05/07/19 25 05/07/2024 COMPR EHENS ERIN METAB OLIC PANEL alkaline phosphatase 46 U/L 37-153 normal Not Available [address], [address], 05/07/2024 12:42:56 05/07/19 25 05/07/2024 COMPR EHENS ERIN METAB OLIC PANEL AST 15 U/L 10-35 normal Not Available [address], [address], 05/07/2024 12:42:56 05/07/19 25 05/07/2024 COMPR EHENS ERIN METAB OLIC PANEL ALT 12 U/L 6-29 normal Not Available [address], [address], 05/07/2024 12:42:56 05/07/19 25 05/07/2024 CBC (INCL UDES DIFF/ PLT) white blood cell count 5.5 thous and/u L 3.8-10 .8 normal Not Available [address], [address], 05/07/2024 12:42:57 05/07/19 25 05/07/2024 CBC (INCL UDES DIFF/ PLT) red blood cell count 3.77 kam on/uL 3.80-5 .10 low Not Available [address], [address], 05/07/2024 12:42:57 05/07/19 25 05/07/2024 CBC (INCL UDES DIFF/ PLT) hemoglobin 11.8 g/dL 11.7-1 5.5 normal Not Available [address], [address], 05/07/2024 12:42:57 05/07/19 25 05/07/2024 CBC (INCL UDES DIFF/ PLT) hematocrit 36.1 % 35.0-4 5.0 normal Not Available [address], [address], 05/07/2024 12:42:57 05/07/19 25 05/07/2024 CBC (INCL UDES DIFF/ PLT) MCV 95.8 fL 80.0-1 00.0 normal Not Available [address], [address], 05/07/2024 12:42:57 05/07/19 25 05/07/2024 CBC (INCL UDES DIFF/ PLT) MCH 31.3 pg 27.0-3 3.0 normal Not Available [address], [address], 05/07/2024 12:42:57 05/07/19 25 05/07/2024 CBC (INCL UDES DIFF/ PLT) MCHC 32.7 g/dL 32.0-3 6.0 normal For adult s, a sligh t decre ase in the calcu lated MCHC value (in the range of 30 to 32 g/dL) is most likel y not clini geean signi fican t; trudy er, it shoul d be inter prete d with cauti on in corre lat n with other red cell sheridan eters and the patie nt's clini maria eugenia condi tion. Not Available [facility] [address], [address], 05/07/2024 12:42:57 05/07/1905/07/2024 CBC (INCL UDES DIFF/ PLT) RDW 12.1 % 11.0-1 5.0 normal Not Available [facility] [address], [address], 05/07/2024 12:42:57 05/07/19 25 05/07/2024 CBC (INCL UDES DIFF/ PLT) platelet count 296 thous and/u L 140-40 0 normal Not Available [facility] [address], [address], 05/07/2024 12:42:57 05/07/1905/07/2024 CBC (INCL UDES DIFF/ PLT) MPV 10.4 fL 7.5-12 .5 normal Not Available [facility] [address], [address], 05/07/2024 12:42:57 05/07/1905/07/2024 CBC (INCL UDES DIFF/ PLT) absolute neutrophils 2008 cells /uL 1500-7 800 normal Not Available [facility] [address], [address], 05/07/2024 12:42:57 05/07/19 25 05/07/2024 CBC (INCL UDES DIFF/ PLT) absolute lymphocytes 2728 cells /uL 850-39 00 normal Not Available [address], [address], 05/07/2024 12:42:57 05/07/19 25 05/07/2024 CBC (INCL UDES DIFF/ PLT) absolute monocytes 435 cells /uL 200-95 0 normal Not Available [address], [address], 05/07/2024 12:42:57 05/07/19 25 05/07/2024 CBC (INCL UDES DIFF/ PLT) absolute eosinophils 281 cells /uL 15-500 normal Not Available [address], [address], 05/07/2024 12:42:57 05/07/19 25 05/07/2024 CBC (INCL UDES DIFF/ PLT) absolute basophils 50 cells /uL 0-200 normal Not Available [address], [address], 05/07/2024 12:42:57 05/07/19 25 05/07/2024 CBC (INCL UDES DIFF/ PLT) neutrophils 36.5 % normal Not Available [address], [address], 05/07/2024 12:42:57 05/07/19 25 05/07/2024 CBC (INCL UDES DIFF/ PLT) lymphocytes 49.6 % normal Not Available [address], [address], 05/07/2024 12:42:57 05/07/19 25 05/07/2024 CBC (INCL UDES DIFF/ PLT) monocytes 7.9 % normal Not Available [address], [address], 05/07/2024 12:42:57 05/07/19 25 05/07/2024 CBC (INCL UDES DIFF/ PLT) eosinophils 5.1 % normal Not Available [address], [address], 05/07/2024 12:42:57 05/07/19 25 05/07/2024 CBC (INCL UDES DIFF/ PLT) basophils 0.9 % normal Not Available [address], [address], 05/07/2024 12:42:57 05/07/1905/07/2024 T4, FREE T4, free 1.2 NG/dL 0.8-1. 8 normal Not Available [address], [address], 05/07/2024 12:42:58 05/07/1905/07/2024 TSH TSH 0.44 mIU/L 0.40-4 .[address] to have a dupli francisco copy faxed has been denzel pride ed. Queue d to: [phone] Queue d to: [phone] Not Available [address], [address], 05/07/2024 12:42:59 06/11/1906/04/2023 DEXA, axial skele ton No observ ation record ed. [address], [place], [address], 06/12/2023 08:09:37 07/16/19 24 07/16/2023 simon patelo, bilat [facility] [address] [facility] n [facility], [place] [address] Patien t Name: ODALIS COBB ion #: [id number] Sex: F : 1955 0 Dictat ed By: Ezio Telles Attend ing Physic estela: AMELIA LAIRD CE Orderi ng Physic estela: AMELIA LAIRD CE Exam Date: 2023 14:05 PM Exam Name: SCRN BREAST JENNIFER BILAT Admitt ing Diagno sis(es ): SCREEN ING MAMMOG CUAUHTEMOC WITH TOMOSY NTHESI S: REASON FOR EXAM: SCREEN ING ABHI COMPAR ALY: 2021, 2020, 2019 TECHNI QUE: Bilate ral CC and MLO views obtain ed. Images were obtain ed using a Digita l Tomosy nthesi s Unit. Standa rd 2D and 3D Tomosy nthesi s images were review ed. FINDIN GS: BREAST COMPOS ITION: There are scatte red areas of fibrog landul ar densit y in the bilate ral breast s. In the right breast , no asymme trical parenc hymal patter n, ninoska ectura l distor tion, pleomo rphic microc alcifi cation s or masses . In the left breast , no asymme trical parenc hymal patter n, ninoska ectura l distor tion, pleomo rphic microc alcifi cation s or masses . IMPRES KIKI: No findin gs of malign junior. Recomm end annual mammog cuauhtemoc. BIRADS : 1 - Negati ve Electr onical ly Signed by: Ezio Telles at 2023 15:11: 28 PM Page [address] ([facility]) [address] [place], [address], 07/16/2023 17:18:53 09/23/19 24 09/22/2023 US, lower leg No observ ation record ed. [address] [facility] [address], [place], [address], 09/23/2023 16:33:39 12/02/19 24 12/02/2023 US, carot id arter y No observ ation record ed. [address] [facility] [address], [place], [address], 12/03/2023 07:57:20 01/09/20 24 01/07/2024 CT, chest , w/o contr ast No observ ation record ed. [address], [place], [address], 01/09/2024 15:34:51 03/09/19 25 03/09/2024 nerve condu ction study /EMG, upper extre mity (PROC ) No observ ation record ed. [place] [id number] [facility] [address], [place], [address], 03/09/2024 21:26:59 Result Notes None recorded. Problems Name Problem SNOMED Code Status Onset Date Resolution Date Notes Provider Name and Address Organization Details Recorded Time Chronic pain 17985205 Active 2022 Not Available [facility] 3 05:34:02 Musculoske letal chest pain 878687177 Active 2022 Not Available [facility] 3 05:34:02 Fatigue 90606676 Active 2022 Not Available [facility] 3 05:34:02 Anemia 776810487 Active 2022 Not Available [facility] 3 05:34:02 Pain of left shoulder joint 4374187281795 9109 Active 2022 RIVAS Umaña null, [place] [employer] [facility] [employer] [facility] 3 14:43:11 Complicati on after wiring of sternum 035935383 Active 2022 Dee Rivera CMA null, [employer] [facility] 3 15:03:03 Acute pharyngiti s 311348647 Active 2023 Richie Laird MD [address], [facility] [address], [place], [address] , [facility] [employer] [facility] 4 15:49:23 Dystrophia unguium 08116143 Active 2023 Sohail Harrison DPM [address], [address], [place], [address] , [facility] [place] [facility] 4 15:38:57 Ingrowing nail of toe of left foot 3021069375602 9107 Active 2023 Sohail Harrison DPM [address], [address], [place], [address] , [place] [facility] [place] [facility] 4 15:39:03 Cough 63637466 Active 2023 Dee Rivera CMA null, [place] [facility] [place] [facility] 4 11:17:21 Acute bronchitis 01765236 Active 2023 Richie Laird MD [address], [address], [place], [address] , [facility] 4 15:36:49 Pain of right upper arm 2704526104560 03 Active 2023 Richie Laird MD [address], [address], [place], [address] , [facility] 4 15:41:15 Fever 538777457 Active 2023 Dee Rivera CMA null, [place] - [facility] 4 12:41:07 COVID-19 022620959 Active 2023 Richie Laird MD [address], [address], [place], [address] , [facility] 4 17:12:13 Neurogenic thoracic outlet syndrome 6443385 Active 2023 Sujatha Gregory null, [place] [facility] [place] [facility] 4 16:56:26 Irritable bowel syndrome 80912221 Active Not Available [facility] 3 05:34:02 Hyperchole sterolemia 25475805 Active Not Available [facility] 3 05:34:02 Anxiety disorder 755802946 Active Not Available [facility] 3 05:34:02 Gastroesop hageal reflux disease 148417265 Active Not Available [facility] 3 05:34:02 Gallstone 993570555 Active Not Available [facility] 3 05:34:02 Left carotid artery stenosis 4482787371626 03 Active Not Available [facility] 3 05:34:02 Adhesive capsulitis of left shoulder 8092627995975 07 Active 2021 Not Available [facility] 3 05:34:02 Vitamin D deficiency 06257797 Active 2021 Not Available [facility] 3 05:34:02 Chronic pain syndrome 893373269 Active 2019 Not Available [facility] 3 05:34:02 Paronychia of toe 930448238 Active 2019 Not Available [facility] 3 05:34:02 Peripheral vascular disease 334108067 Active Not Available [facility] 3 05:34:02 Ingrowing toenail 000119410 Active 2020 Not Available [facility] 3 05:34:02 Central pain syndrome 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 Active 2019 Not Available [facility] 3 05:34:02 Long-term current use of opiate analgesic drug 2363839434767 08 Active 2021 Not Available [facility] 3 05:34:02 Coronary arterioscl erosis 48090535 Active Not Available [facility] 3 05:34:02 Carpal tunnel syndrome 14291297 Active Not Available [facility] 3 05:34:02 Essential hypertensi on 58217829 Active Not Available [facility] 3 05:34:02 Disorder of coccyx 04154696 Active Not Available [facility] 3 05:34:02 Osteoporos is 75455848 Active 2018 Not Available [facility] 3 05:34:02 Pain in limb 63965903 Active Not Available [facility] 3 05:34:02 Closed fracture of cuboid bone of foot 0043167 Active Not Available [facility] 3 05:34:02 Notes:heart bypass Problem Notes None recorded. Procedures Surgical History Date Name Laterality Status Provider Name and Address Organization Details Recorded Time 09/09/19 24 Nail Debridement completed Sohail Harrison DPM [address] [facility], [address], [place], [address], [place] [facility] 09/29/2023 15:40:34 04/07/19 24 Medicare Wellness CPT Code, subsequent completed Shawnee Mcfarlane RN [facility] 04/07/2023 16:03:20 04/07/19 24 Advanced Care Planning completed Shawnee Mcfarlane RN [facility] 04/07/2023 16:06:37 11/28/19 22 Date of Last Colonoscopy completed Not Available [facility] 04/29/2022 04:41:53 03/14/19 20 Most Recent Bone Density completed Not Available [facility] 04/29/2022 04:41:53 01/03/20 14 Colonoscopy w/snare completed Not Available [facility] 04/29/2022 04:41:57 Imaging Results Imaging Date Name Status [facility] Details LastModified Time 06/04/2023 DEXA, axial skeleton completed [address] [place] [address], [address], 06/12/2023 08:09:37 07/16/2023 screening breast jennifer, bilat completed [address] (Imaging) [address], [place], [address], 07/16/2023 17:18:53 09/22/2023 US, lower leg completed [address] [facility] [address], [place], [address], 09/23/2023 16:33:39 12/02/2023 US, carotid artery completed [address] [facility] [address], [place], [address], 12/03/2023 07:57:20 01/07/2024 CT, chest, w/o contrast completed [address] [place] [address], [address], 01/09/2024 15:34:51 03/09/2024 nerve conduction study/EMG, upper extremity (PROC) completed [address], [place], [address], 03/09/2024 21:26:59 Procedure Notes None recorded. Medical Equipment None Reported. Allergies Allergen ID Allergen Name Allergen Category Reaction Reaction Severity Criticality Documentation Date Start Date Code Code System Note Provider Name and Address Organization Details Recorded Time 5114 Lipitor medicatio n myalgias (muscle pain) Not available Not available 04/29/2022 60597 5 RxNorm Not Available [facility] 05:00:34 Medications Name Sig Start Date Stop Date Status Note LastModified by Organization Details LastModified Time cyclobenz aprine 10 mg tablet 09/07 completed Not Available Not Available Not Available amoxicill in 500 mg capsule TAKE 1 CAPSULE BY MOUTH THREE TIMES DAILY FOR 10 DAYS 09/08 completed Not Available Not Available Not Available latanopro st 0.005 % eye drops INSTILL 1 DROP INTO EACH EYE AT BEDTIME active Not Available Not Available No t Available atorvasta tin 40 mg tablet active Not Available Not Available Not Available atorvasta tin 80 mg tablet Take 1 tablet every day by oral route. 01/18 completed Not Available Not Available Not Available azelastin e 0.05 % eye drops 07/11 completed Not Available Not Available Not Available paroxetin e 10 mg tablet Take 1 tablet every day by oral route. 12/19 completed Not Available Not Available Not Available atorvasta tin 20 mg tablet active Not Available Not Available Not Available azithromy rosalia 250 mg tablet TAKE 2 TABLETS BY MOUTH ON DAY 1, AND THEN TAKE 1 TABLET BY MOUTH ONCE A DAY ON DAY 2 THROUGH DAY 5 12/21 completed Not Available Not Available Not Available alprazola m 1 mg tablet TAKE 1 TABLET BY MOUTH THREE TIMES DAILY for anxiety 2024 active Not Available Not Available Not Avai lable benzonata te 200 mg capsule TAKE 1 CAPSULE BY MOUTH THREE TIMES DAILY 12/21 completed Not Available Not Available Not Available metoprolo l succinate ER 50 mg tablet,ex tended release 24 hr TAKE 1 TABLET BY MOUTH ONCE DAILY 08/14 completed Not Available Not Available Not Available hydrocodo ne 5 mg-acetam inophen 325 mg tablet TAKE 1 TABLET BY MOUTH FOUR TIMES DAILY active Not Available Not Available No t Available lisinopri l 20 mg tablet TAKE 1 TABLET BY MOUTH TWICE DAILY active Not Available Not Available No t Available Ferrex 150 mg iron capsule 06/10 completed Not Available Not Available Not Available penicilli n V potassium 500 mg tablet 06/10 completed Not Available Not Available Not Available clopidogr el 75 mg tablet TAKE 1 TABLET BY MOUTH ONCE DAILY 12/03 completed Not Available Not Available Not Available amlodipin e 5 mg tablet TAKE 1 TABLET BY MOUTH ONCE DAILY active Not Available Not Available No t Available aspirin 81 mg tablet,de layed release Take 1 tablet every day by oral route. 2020 active Not Available Not Available Not Avai lable tramadol 50 mg tablet 12/03 completed Not Available Not Available Not Available alprazola m 0.5 mg tablet TAKE 1 TABLET BY MOUTH THREE TIMES DAILY NEEDED 04/07 completed Not Available Not Available Not Available amoxicill in 875 mg tablet Take 1 tablet every 12 hours by oral route. 2019 active Not Available Not Available Not Avai lable prednisol one acetate 1 % eye drops,reno bradshawon 06/10 completed Not Available Not Available Not Available Fosamax 70 mg tablet Take 1 tablet every week by oral route. 12/19 completed Not Available Not Available Not Available Celexa 20 mg tablet Take 1 tablet every day by oral route. 2012 active Not Available Not Available Not Avai lable Kenalog 10 mg/mL suspensio n for injection In office injectio n administ ered by the provider 08/19 completed [facility] [place]: [phone] 4-20 Not Available Not Available Not Available amlodipin e 10 mg tablet Take 1 tablet every day by oral route. 12/19 completed Not Available Not Available Not Available doxycycli ne monohydra te 100 mg capsule Take 1 capsule twice a day by oral route for 5 days. active Not Available Not Available No t Available cephalexi n 500 mg capsule TK 1 C PO Q 6 H active Not Available Not Available No t Available metoprolo l tartrate 50 mg tablet Take 1 tablet twice a day by oral route. 08/19 completed Not Available Not Available Not Available gabapenti n 300 mg capsule TAKE 1 CAPSULE BY MOUTH THREE TIMES DAILY 09/07 completed Not Available Not Available Not Available Levaquin 500 mg tablet Take 1 tablet every 24 hours by oral route. 06/26 completed Not Available Not Available Not Available gabapenti n 100 mg capsule TAKE 1 CAPSULE BY MOUTH THREE TIMES DAILY 09/07 completed Not Available Not Available Not Available metoprolo l succinate ER 25 mg tablet,ex tended release 24 hr TAKE 1 TABLET BY MOUTH ONCE DAILY active Not Available Not Available No t Available ergocalci ferol (vitamin D2) 1,250 mcg (50,000 unit) capsule TAKE 1 CAPSULE BY MOUTH ONCE A WEEK active Not Available Not Available No t Available [place] 7.5 mg-325 mg tablet one four times a day for lumbar radiculo asra 08/06 completed Drug Categori es: Benzodia zepines Opioids Stimulan ts Other Last Name First Name Date of Date Filled Label Name Strength Metric Quantity Days Supply Payment Method Pharmacy Name/ City Prescrib er Name [facility] [place] [facility] 6 0 ALPRAZOL AM 1MG 90 30 [facility]/ RICHIE KELSEY MD [facility] 6 07/03/2019 HYDROCOD ON-ACETA MINOPHEN 5MG-325M G 120 30 [facility]/ [place] RICHIE LAIRD MD [facility] 6 0 ALPRAZOL AM 1MG 90 30 [facility]/ RICHIE KELSEY MD [facility] 6 06/02/2019 HYDROCOD ON-ACETA MINOPHEN 5MG-325M G 120 30 [facility] [place] RICHIE LAIRD MD [facility] 6 0 ALPRAZOL AM 1MG 90 30 [facility]/ RICHIE KELSEY MD [facility] 6 05/03/2019 HYDROCOD ON-ACETA MINOPHEN 5MG-325M G 120 30 [facility] / [place] RICHIE ALIRD MD [facility] 6 0 ALPRAZOL AM 1MG 90 30 [facility] [id number]/ [facility] RICHIE LAIRD MD [place] 6 04/03/2019 HYDROCOD ON-ACETA MINOPHEN 5MG-325M G 120 30 [facility]/ [place] RICHIE LAIRD MD [place] 6 0 HYDROCOD ONE BITARTRA TE-ACETA MINOPHE 7.5MG-32 5MG 21 7 [facility] / [place] Not Available Not Available Not Available methylpre dnisolone 4 mg tablets in a dose pack TAKE BY MOUTH DIRECTED ON INSIDE OF PACKAGE 09/08 completed Not Available Not Available Not Available oxybutyni n chloride 5 mg tablet TAKE 1/2 (ONE-ETHAN F) TABLET BY MOUTH TWICE DAILY active Not Available Not Available No t Available neomycin 3.5 mg/g-poly myxin B 10,000 unit/g-de xameth 0.1 % eye oint 06/10 completed Not Available Not Available Not Available ezetimibe 10 mg tablet TAKE 1 TABLET BY MOUTH ONCE DAILY WITH ATORVAST ATIN active Not Available Not Available No t Available Restasis 0.05 % eye drops in a dropperet te USE 1 DROP IN BOTH EYES TWICE DAILY 09/08 completed Not Available Not Available Not Available rosuvasta tin 5 mg tablet TAKE 1 TABLET BY MOUTH ONCE DAILY 09/08 completed Not Available Not Available Not Available rosuvasta tin 40 mg tablet TAKE 1 TABLET BY MOUTH EVERY DAY active Not Available Not Available No t Available Prilosec OTC 20 mg tablet,de layed release daily 2012 active Not Available Not Available Not Avai lable metoprolo l tartrate 25 mg tablet TAKE ONE TABLET BY MOUTH ONCE DAILY 09/14 completed Not Available Not Available Not Available Dulcolax Stool Softener (docusate ) 100 mg capsule Take 1 capsule every day by oral route. 12/19 completed Not Available Not Available Not Available pregabali n 50 mg capsule 09/07 completed Not Available Not Available Not Available aspirin 10/21 completed Not Available Not Available Not Available Feosol 2015 active Not Available Not Available Not Avai lable Vitamin D 12/19 completed Not Available Not Available Not Available Xanax 10/21 completed Not Available Not Available Not Available multivita min 12/19 completed Not Available Not Available Not Available Calcium 500 + D 12/19 completed Not Available Not Available Not Available lidocaine (PF) 10 mg/mL (1 %) injection solution In office injectio n administ ered by the provider 08/19 completed [facility]: [phone] 6-17 Not Available Not Available Not Available Prolia 60 mg/mL subcutane ous syringe active Not Available Not Available Not Available Prolia 06/10 completed Not Available Not Available Not Available aspirin 80 mg tablet Take by oral route. 12/19 completed Not Available Not Available Not Available Repatha Syringe 140 mg/mL subcutane ous syringe INJECT ONE SYRINGE SUB Q EVERY 2 WEEKS active Not Available Not Available No t Available Repatha SureClick 140 mg/mL subcutane ous pen injector INJECT 1 PEN SUBCUTAN EOUSLY ONCE EVERY 2 WEEKS active Not Available Not Available No t Available Repatha Pushtrone x 420 mg/3.5 mL subcutane ous wearable injector INFUSE 420 MG SUBCUTAN EOUSLY ONCE A MONTH 09/07 completed Not Available Not Available Not Available Repatha Pushtrone x 06/10 completed Not Available Not Available Not Available Sutab 1.479-0.1 88-0.225 gram tablet DIRECTED 08/06 completed Not Available Not Available Not Available BinaxNOW COVID-19 Ag Self Test kit TEST DIRECTED TODAY 03/09 completed Not Available Not Available Not Available Paxlovid 300 mg (150 mg x 2)-100 mg tablets in a dose pack TAKE 3 TABLETS TOGETHER (TWO 150 MG NIRMATRE LVIR TABLETS AND ONE 100 MG RITONAVI R TABLET) BY MOUTH TWICE DAILY FOR 5 DAYS. 03/13 completed Not Available Not Available Not Available Leqvio 284 mg/1.5 mL subcutane ous syringe Inject 1.5 mL every 3 months by subcutan eous route. 09/08 completed Not Available Not Available Not Available Vitals Date Recorded Body height Body mass index (BMI) Body weight Heart rate Body temperature Oxygen saturation Oxygen saturation in Arterial blood by Pulse oximetry Systolic blood pressure Diastolic blood pressure Provider Name and Address Organization Details Last Updated DateTime 4 162.56 cm 18.9 kg/m2 45094.1 6 g 75 /min 97.7 [degF] 95 % 95 % 114 mm[Hg] 70 mm[Hg] RIVAS Malloy [place] [employer] [facility] [employer] [facility] 4 15:05:22 Date Recorded Body height Heart rate Systolic blood pressure Diastolic blood pressure Provider Name and Address Organization Details Last Updated DateTime 09/09/2023 162.56 cm 60 /min 156 mm[Hg] 98 mm[Hg] Nelia Coppola CNA [employer] [facility] [employer] [facility] 09/09/2023 14:47:56 Date Recorded Body height Body weight Heart rate Body temperature Respiratory rate Systolic blood pressure Diastolic blood pressure Provider Name and Address Organization Details Last Updated DateTime 4 162.56 cm 26569.9 8 g 66 /min 97.9 [degF] 98 /min 124 mm[Hg] 80 mm[Hg] RIVAS Malloy [employer] [facility] [employer] [facility] 4 15:05:44 Date Recorded Body height Body mass index (BMI) Body weight Heart rate Body temperature Oxygen saturation Oxygen saturation in Arterial blood by Pulse oximetry Systolic blood pressure Diastolic blood pressure Provider Name and Address Organization Details Last Updated DateTime 4 162.56 cm 18.4 kg/m2 39742.3 8 g 87 /min 97 [degF] 98 % 98 % 124 mm[Hg] 74 mm[Hg] RIVAS Malloy [place] [employer] [facility] [employer] [facility] 4 15:28:41 Date Recorded Body height Body mass index (BMI) Body weight Heart rate Body temperature Oxygen saturation Oxygen saturation in Arterial blood by Pulse oximetry Systolic blood pressure Diastolic blood pressure Provider Name and Address Organization Details Last Updated DateTime 5 161.29 cm 18.1 kg/m2 96570.6 1 g 59 /min 97 [degF] 95 % 95 % 132 mm[Hg] 60 mm[Hg] Kamila Domingo [place] - [facility] [place] [employer] 5 15:10:44 Social History Question Answer Notes LastModified by Organization Details LastModified Time Tobacco Smoking Status Former Smoker Not Available [employer] 04/29/2022 04:12:41 Do You Have An Advance Directive? No Info Given [email or web address] Information not available 04/07/2023 What Is Your Level Of Alcohol Consumption? Occasional MIGRATION.0301 [id number] Information not available 04/29/2022 Are You Blind Or Do You Have Difficulty Seeing? No MIGRATION.0301 [id number] Information not available 04/29/2022 What Is Your Level Of Caffeine Consumption? Occasional MIGRATION.0301 [id number] Information not available 04/29/2022 Are You Deaf Or Do You Have Serious Difficulty Hearing? No MIGRATION.0301 [id number] Information not available 04/29/2022 What Type Of Diet Are You Following? REGULAR MIGRATION.0301 [id number] Information not available 04/29/2022 Have There Been Any Changes To Your Family Or Social Situation? No MIGRATION.0301 [id number] Information not available 04/29/2022 What Is The Fluoride Status Of Your Home? Unknown MIGRATION.0301 [id number] Information not available 04/29/2022 Do You Use Insect Repellent Routinely? No MIGRATION.0301 [id number] Information not available 04/29/2022 [facility] MIGRATION.0301 [id number] Information not available 04/29/2022 Are You Able To Care For Yourself? Yes [email or web address] Information not available 04/07/2023 Are You Blind Or Do Yo Have Difficulty Seeing? No [email or web address] Information not available 04/07/2023 Are You Deaf Or Do You Have Serious Difficulty Hearing? No [email or web address] Information not available 04/07/2023 Live Alone Of With Others? Alone [email or web address] Information not available 04/07/2023 What Was The Date Of Your Most Recent Tobacco Screening? 04/07/2023 [email or web address] Information not available 04/07/2023 Do You Have Any Pets? No MIGRATION.0301 [id number] Information not available 04/29/2022 What Is Your Relationship Status? Single MIGRATION.0301 [id number] Information not available 04/29/2022 Do You Use Your Seat Belt Or Car Seat Routinely? Yes MIGRATION.0301 [id number] Information not available 04/29/2022 Do You Have Smoke And Carbon Monoxide Detectors In Your Home? Yes MIGRATION.0301 [id number] Information not available 04/29/2022 Are You Passively Exposed To Smoke? Yes MIGRATION.0301 [id number] Information not available 04/29/2022 Do You Use Sunscreen Routinely? No MIGRATION.0301 [id number] Information not available 04/29/2022 Have You Recently Traveled Abroad? No MIGRATION.0301 [id number] Information not available 04/29/2022 Do You Have Any Dietary Restrictions? No MIGRATION.0301 [id number] Information not available 04/29/2022 Sex: Female Functional Status Question Answer Note LastModified by Organizat Dom[employer] Income Details LastModified Time Do you have difficulty walking or climbing stairs? No MIGRATION.[id number] 026 Information not available 04/29/2022 Do you have transportation difficulties? No MIGRATION.[id number] 026 Information not available 04/29/2022 Are you able to walk? YESWOREST MIGRATION.[id number] 026 Information not available 04/29/2022 Do you have difficulty doing errands alone? No MIGRATION.[id number] 026 Information not available 04/29/2022 Are you able to care for yourself? Yes MIGRATION.[id number] 026 Information not available 04/29/2022 Do you have difficulty dressing or bathing? No MIGRATION.[id number] 026 Information not available 04/29/2022 What is your exercise level? None MIGRATION.[id number] 026 Information not available 04/29/2022 Mental Status Question Answer Note LastModified by Organizat ion Details LastModified Time Do you have difficulty concentrating, remembering or making decisions? No [id number].[id number] 6 Information not available 04/29/2022 Family History Relationship Description Onset Age of this Age Resolved Age Notes LastModified by Organization Details LastModified Time Father Heart disease MIGRATION.369 [id number] Not available 04/29/2022 04:41:59 Mother Heart disease MIGRATION.340 [id number] Not available 04/29/2022 04:41:59 Mother Family history of malignant neoplasm MIGRATION.601 [id number] Not available 04/29/2022 04:41:59 Mother Hypertensive disorder MIGRATION.907 [id number] Not available 04/29/2022 04:41:59 Mother Diabetes mellitus MIGRATION.565 [id number] Not available 04/29/2022 04:41:59 Notes:2021-04 Two Coronary S tents 2020-12 Right Iliac Stent 2015-12 CABG 2015-11 Left Carotidendarterectomy 2015-11 Left Carotid Endarterectomy Cholecystectomy Medical History Condition Response NERVE DISEASE N BLINDNESS N RHEUMATIC FEVER N KIDNEY STONES N BLADDER PROBLEMS N MRSA N OTHER # 1 N POLIO N LUNG DISEASE/DISORDER N HISTORY OF DRUG ABUSE N RADIATION / CHEMOTHERAPY N COPD N Other # 2 N BLOOD DISEASES N SURGERY N EAR OR HEARING PROBLEMS N MUMPS N BOWEL PROBLEMS N DEPRESSION (INCLUDING POST ) N STROKE/TIA N ULCERS N BENIGN PROSTATIC HYPERPLASIA N MEASLES N HYPOTENSION N MYOCARDIAL INFARCTION N OBESITY N GERD/NAUSEA Y ANEURYSM N URINARY/BLADDER/KIDNEY PROBLEMS N CORONARY ARTERY DISEASE (CAD) Y ADDICTION CONCERNS N ENDOMETRIOSIS N Impotence N USE OF BLOOD THINNERS N SKIN PROBLEMS N GASTROINTESTINAL DISORDER N PERIPHERAL VASCULAR DISEASE Y MUSCLE,JOINT OR BONE PROBLEMS Y GASTROINTESTINAL BLEEDING N BLOOD CLOTS N ASTHMA N CATARACTS N ERECTILE DYSFUNCTION N VARICOSITIES N GI PROBLEMS N Low Testosterone N INFERTILITY N AIDS/HIV N CHEMOTHERAPY / RADIATION N LIVER DISEASE N MALE HYPOGONADISM N HYPERTENSION Y Deficiency N ANXIETY DISORDER Y BLOOD TRANSFUSION N ANEMIA/BLOOD DISORDER N CHRONIC EAR INFECTIONS N BRONCHITIS N TUBERCULOSIS N GLAUCOMA N FOOT PROBLEM N DIVERTICULITIS N CHICKENPOX N SLEEP APNEA N INFECTIOUS DISEASE N HEART ARRHYTHMIA N PROSTATE N INSOMNIA N HIGH CHOLESTEROL / HYPERLIPIDEMIA Y HYPERTHYROIDISM N EYE PROBLEMS N NEUROLOGICAL PROBLEMS Y EDEMA N CHRONIC PAIN SYNDROME Y HYPOTHYROIDISM N CAROTID BLOCKAGE Y CONSTIPATION N BACK / NECK PROBLEMS Y HAVE YOU BEEN HOSPITALIZED OR SEEN IN [facility] IN THE PAST YEAR ? N ATHEROSCLEROSIS N BREAST PROBLEMS N DIALYSIS N ECZEMA N OSTEOPOROSIS Y ARTHRITIS Y NO SIGNIFICANT PAST MEDICAL HISTORY N APPENDICITIS N DIABETES, TYPE N BAD TEETH N ENT N HEARTBURN / REFLUX N AUTISM SPECTRUM DISORDER (ASD) N HEPATITIS / LIVER DISEASE N GOUT N SLEEP DISORDER N ALZHEIMER'S DISEASE N Brain Problems N HERPES N DEMENTIA N HEADACHES/MIGRAINES N SEIZURES/EPILEPSY N VASCULAR DISEASE Y PACEMAKER N Blood Disorder N DIZZINESS N HEART DISEASE/HEART PROBLEMS N KIDNEY DISEASE N MULTIPLE SCLEROSIS N CARDIAC ARRHYTHMIA N CANCER: SPECIFY N ATRIAL FIBRILLATION N Gall Stones N PULMONARY EMBOLISM N AUTOIMMUNE DISEASE N Gynecological History Statement/Question Response Date of Last Mammogram 03/22/2020 Date of Last Colonoscopy 11/27/2021 Most Recent Bone Density 03/14/2019 Obstetrics History GPAL:G 0 P 0 0 0 0 Immunizations Vaccine Type Date Status Note Provider Nam e and Address Organization Details Recorded Time COVID-19 Non-US Vaccine, Product Unknown 1 completed Not Available [facility] 08/04/2022 05:34:04 COVID-19 Non-US Vaccine, Product Unknown 1 completed Not Available [facility] 08/04/2022 05:34:04 pneumococcal polysaccharide PPV23 3 completed Not Available [facility] 08/04/2022 05:34:04 Pneumococcal conjugate PCV 13 1 completed Not Available [facility] 08/04/2022 05:34:04 Past Encounters Encounter ID Performer Location Encounter Start Date Encounter Closed Date Diagnosis/Indication Diagnosis SNOMED-CT Code Diagnosis ICD10 Code Diagnosis Note [id number] Richie Laird MD [facility] Internal [facility] [address] [facility] 24 [place] [address] 06/10/2020 00:00:00 06/10/2020 16:17:04 [id number] Fer Kumari MD [facility]_[address] [address] 07/11/2020 00:00:00 08/18/2020 19:40:58 [id number] [facility] [place] ic_Gateway _ATHENA_M IGRATION_ DEFAULT_1 _1 , 08/09/2020 00:00:00 08/13/2020 10:35:01 [id number] Fer Kumari MD [facility] Ortho [place] [address] [place] [address] 08/19/2020 00:00:00 08/19/2020 16:31:14 [id number] Fer Kumari MD [facility] [place] [address] [place] [address] 09/13/2020 00:00:00 09/14/2020 20:19:20 [id number] Richie Laird MD [facility] [place] [address] [address] 10/21/2020 00:00:00 10/21/2020 17:29:21 [id number] Fer Kumari MD [facility] [place] [address] [facility] [address] [place] [address] 03/07/2021 00:00:00 03/07/2021 16:20:19 [id number] Richie Laird MD [facility] [place] [address] [address] 04/21/2021 00:00:00 04/21/2021 16:38:47 [id number] Fer Kumari MD [facility] [address] [address] 05/15/2021 00:00:00 05/15/2021 14:26:39 [id number] Fer Kumari MD [facility] [address] [address] 06/26/2021 00:00:00 06/26/2021 15:25:23 [id number] Fer Kumari MD [facility] [address] [address] 08/14/2021 00:00:00 08/14/2021 14:42:10 [id number] Fer Kumari MD [facility] [address] [address] 09/11/2021 00:00:00 09/11/2021 15:13:22 [id number] [facility] [place] [address] [facility] [address] [place] [address] 09/29/2021 00:00:00 09/29/2021 15:58:20 [id number] Richie Laird MD [facility] [place] [address] [address] 10/20/2021 00:00:00 10/20/2021 16:08:10 [id number] Fer Kumari MD [address] [address] 10/30/2021 00:00:00 10/30/2021 13:02:50 [id number] _ATHN_MIGR ATION_1 _ATHENA_M IGRATION_ DEFAULT_1 _1 , 11/12/2021 00:00:00 11/12/2021 13:03:33 [id number] Richie Laird MD [facility] Internal Med [facility] [address] [address] 03/09/2022 00:00:00 03/09/2022 16:16:25 [id number] Fer Kumari MD [place] [address] 08/06/2022 14:30:42 08/06/2022 15:50:22 Pain of left shoulder joint [id number] M25.512 [id number] Fer Kumari MD [place] [address] 08/20/2022 14:10:14 08/31/2022 09:25:06 Pain of left shoulder joint 1535227066 0120072 M25.512 M75.02 [id number] Richie Laird MD [facility] Internal Med [facility] [address] [address] 09/07/2022 15:37:32 09/07/2022 16:15:33 Coronary arteriosclerosis 23298245 I25.10 Essential hypertension 51217477 I10 Hypercholesterolemia 136 82220 E78.00 Gastroesop hageal reflux disease 775920967 K21.9 Chronic pain syndrome 37 9239613 G89.4 Long-term current use of opiate analgesic drug 8977454854 96654 Z79.861 [id number] Fer Kumari MD [place] [address] 12/03/2022 14:34:17 12/03/2022 15:06:55 Adhesive capsulitis of left shoulder 1546468931 37547 M75.02 [id number] Fer Kumari MD [facility] [address] [place] [address] 01/14/2023 14:52:38 01/14/2023 15:40:42 Adhesive capsulitis of left shoulder 0009976176 42397 M75.02 [id number] Rcihie Laird MD [facility] Internal Med [facility] [address] [address] 03/08/2023 15:52:44 03/08/2023 16:21:18 Chronic pain syndrome 207591882 G89.4 Coronary arteriosclerosis 38020870 I25.10 Essential hypertension 09744316 I10 Hypercholesterolemia 136 42105 E78.00 Osteoporosis 79476077 M8 1.0 [id number] Richie Laird MD [facility] Internal Med [facility] [address] [address] 04/07/2023 15:47:39 04/07/2023 16:28:04 Adult health examination 770909774 Z00.00 Screening for disorder 486814756 Z13.9 Coronary arteriosclerosis 62576087 I25.10 Essential hypertension 40028840 I10 Peripheral vascular disease 578715958 I73.9 Hypercholesterolemia 136 53023 E78.00 [id number] Richie Laird MD [facility] Internal Med [facility] [address] [address] 07/05/2023 14:54:04 07/05/2023 15:40:39 Coronary arteriosclerosis 17772049 I25.10 Essential hypertension 97744343 I10 Hypercholesterolemia 136 77004 E78.00 Peripheral vascular disease 146114437 I73.9 Left carot id artery stenosis 1239452420 77072 I65.22 [id number] Sohail Harrison DPM [facility] [place] [address] [place] [address] 09/09/2023 14:40:15 09/29/2023 16:17:14 Dystrophia unguium 17901598 L60.3 nails debrided without incident Ingrowing nail of toe of left foot 1061532418 6748359 L60.0 left great toe incurvated slant back procedure performedF ollow-up as needed [id number] Richie Laird MD [facility] Internal Med [facility] [address] [place] [address] 11/08/2023 14:59:48 11/08/2023 15:38:02 Coronary arteriosclerosis 74944797 I25.10 Essential hypertension 45060590 I10 Peripheral vascular disease 226846850 I73.9 Hypercholesterolemia 136 26486 E78.00 [id number] Richie Laird MD [facility] Internal Med [facility] [address] [place] [address] 0 12/22/2023 15:12:17 12/22/2023 15:52:06 Pain of right upper arm 3447888662 66173 M79.471 [id number] Richie Laird MD [facility] Internal Med [facility] [address] [address] 03/13/2024 15:10:01 03/13/2024 15:31:53 Coronary arteriosclerosis 08270912 I25.10 Essential hypertension 19247941 I10 Left carot id artery stenosis 5562499641 16677 I65.22 Peripheral vascular disease 863399528 I73.9 Hypercholesterolemia 136 26221 E78.00 Health Concerns Section Related Observation LastModified by Organization Detai ls LastModified Time None Recorded Concern Status LastModified by Organization Details LastModified Time None Recorded Advance Directives Directive N: Info given Payers Encounter Date Sequence Insurance Name Policy Number Policy Meadows Covered Member ID Meadows Member ID Guarantor Name 07/05/2023 2 [facility] (MEDICAID HMO) [id number] Odalis Lucie [id number] Odalis M Lucie 07/05/2023 1 [facility] (MEDICARE REPLACEMENT/A DVANTAGE - PPO) [id number] Odalis Lucie [id number] Odalis M Lucie 09/09/2023 2 [facility] (MEDICAID HMO) [id number] Odalis Lucie [id number] Odalis M Lucie 09/09/2023 1 [facility] (MEDICARE REPLACEMENT/A DVANTAGE - PPO) [id number] Odalis M Lucie [id number] Odalis M Lucie 11/08/2023 2 [facility] (MEDICAID HMO) [id number] Odalis M Lucie [id number] Odalis M Lucie 11/08/2023 1 [facility] (MEDICARE REPLACEMENT/A DVANTAGE - PPO) [id number] Odalis M Lucie [id number] Odalis M Lucie 12/22/2023 2 [facility] (MEDICAID HMO) [id number] Odalis M Lucie [id number] Odalis M Lucie 12/22/2023 1 [facility] (MEDICARE REPLACEMENT/A DVANTAGE - PPO) [id number] Odalis M Lucie [id number] Odalis M Lucie 03/13/2024 2 [facility] (MEDICAID HMO) [id number] Odalis M Lucie [id number] Odalis M Lucie 03/13/2024 1 [facility] (MEDICARE REPLACEMENT/A DVANTAGE - PPO) [id number] Odalis M Lucie [id number] Odalis M Lucie Notes Date Note Type Note Provider Name and Address Organization Details Recorded Time 07/05/2023 text/html Patient Name: Mac SueDate Of Service: Wednesday ( 07.05.2023 ): 1955 Age: 68 There has been approximately a 2 lb weight gain since 04/07/2023. This represents approximately a 1.9% change in weight. Weight change attributable to lifestyle changes. Vital Signs:Blood Pressure: Sitting Rt. Arm 114/70Pulse: Sitting 75 /min and RegularRespiratory Rate: 12Height 64 in or 1.6 mWeight 110 lb or 49.9 kgBMI 18.9Temperature: 97.7 F or 36.5 CPulse Oximetry: 95 % at rest on no oxygen Chief Complaint: Addressed in HPI Problems or conditions discussed in the HPI were the only ones reviewed during the encounter.Only social and family history addressed in the HPI were reviewed during this encounter. Attendant(s): NoneConstitutional and Systemic Symptoms:none Medication Reconciliation: from medication list. Vueyjymvwgy42/02/2023: Echocardiogram demonstrates an estimated ejection fraction of 55%. Nonspecific thickening of mitral valve leaflets with trace physiological mitral valve regurgitation. Aortic leaflets are structurally normal. No gradients noted. Tricuspid valve normal. 04/29/2022: Ultrasound of carotid artery demonstrated a 50 69% stenosis of the right internal carotid. Less than 50% of the left. Vertebral flow is antegrade bilaterally 05-28-2023: Pharmacological stress test showed a normal ECG with no ischemic ST or T-wave changes following the vasodilators stress. Normal size left ventricle. Left ventricular ejection fraction estimated at 55%. There was abnormal perfusion of the mid anterolateral region with moderate perfusion defect which is completely reversible. History of Present Illness #1. Coronary Artery Disease: There has been no change in frequency - duration - intensity in frequency, duration or intensity of chest pain. Other Complaints: none The frequency of anginal attacks is none at all. Additional Symptoms: none Therapy reviewed regarding cardiovascular management includes medication #2. Essential Hypertension: Stage: Stage I Interval Neurological Complaints no headaches. No shortness of breath, orthopnea or cardiovascular symptoms. No other symptoms related to end organ damage. Pressure has been under excellent control. Currently normal. No other end organ symptoms or findings. Therapy reviewed regarding management of hypertension and includes salt restriction and Amlodipine, Lisinopril and Metoprolol. #3. Type II Hypercholesterolaemia: Currently taking medication and tolerating well. No interval complaints of any muscle pain or arthralgia. No significant liver changes with medications. Last lipid panel: fair control. Therapy reviewed regarding treatment of cholesterol management and include diet and Repatha. #4. Hx of peripheral vascular disease. There has been no increase in intensity, severity or duration of claudication symptoms. Exertional capacity has remained essentially unchanged. Is able to walk one block without developing any claudication. No rest pain noted. #5. Carotid Stenosis: Hx of left sided carotid stenosis. No interval complaints of any headaches, dizziness, numbness, tingling or weakness. No syncope or pre syncopal symptoms. Last carotid ultrasound was within the last year. Active Medication ListAspirin 81 MG One DailyXanax .5 MG TABLET One Qid For AnxietyNorco 325 MG-5 MG (TABLET - ORAL) One Four Times A DayPlavix 75 MG (TABLET - ORAL) One DailyProlia 60 MG/ ML (INJECTABLE - SUBCUTANEOUS) Q 6 MonthsDulcolax 100MG One BidOs-maria eugenia D 500MG DailyMetoprolol 50 MG (TABLET - ORAL) One DailyVitamin D 200MG DailyLisinopril 20 MG (TABLET - ORAL) One DialyLeqvio 284 MG/1.5ML INJECTION, SOLUTION One Every Three MonthsAmlodipine 5 MG TABLET One Daily Vaccination and Lboslrnjqudg5373-37 Jdlrfrobz2269-99 Prevnar 13 Ee9596-01 Covid [facility] Uqcryec2721-53 CABG Sutures Anxgvou9089-68 Two Coronary Fzjdab4556-07 Right Iliac Bhamb3300-94 EOLD2645-50 Left Oqqfnwgthjvbpngsrmvhc67 16- Left Carotid Ckpekhguzflxhr3347-43 Cholecystectomy Preventative Lyljpgc5906/04/2023 DEXA SCAN03/29/2023 ALBUMIN 4.5 G/DL H011/26/2021 COLONOSCOPY ( 7 YEARS ) /01/2022 MAMMOGRAM ULTRASOUND CAROTIDS (50-69% RT. ICA)* 02/19/2025 Social HistorySmokes 5 cigarettes daily and has done so since shewas 16 y/o. Does drink socially. 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 Family HistoryMother in her 60's has CA of pancreas.Father at 68 [place].Has one brother and sister in good health although brother has had diverticulitis. Richie Laird MD [address] [facility], [place] [address], [place], [address], [facility] [employer] 07/05/2023 15:37:45 09/09/2023 text/html . Patient is a 68-year-old female who presents to the office with complaints of multiple ingrown toenails. Patient has no active signs of infection, redness or swelling of the toes. Patient states she has a mild pain to palpation to the 2nd and 3rd toenail of the left foot and lateral corner of the great toe of the right. Patient denies any fever, chills, nausea vomiting. Patient states she has had previous procedures on the toes before but does not recall what exactly she had done. Patient denies any other complaints. Sohail Harrison DPM [address] [facility], [address], [place], [address], [place] [facility] 09/29/2023 15:40:49 11/08/2023 text/html Patient Name: Mac hardy ForrestDate Of Service: Wednesday ( 11.08.2023 ): 1955 Age: 68 There has been approximately a 2 lb weight loss since 07/05/2023. This represents approximately a 1.8% change in weight. Weight change attributable to lifestyle changes. Vital Signs:Blood Pressure: Sitting Rt. Arm 124/80Pulse: Sitting 66 /min and RegularRespiratory Rate: 12Height 64 in or 1.6 mWeight 108 lb or 49.0 kgBMI 18.5Temperature: 97.9 F or 36.6 CPulse Oximetry: 98 % at rest on no oxygen Chief Complaint: Addressed in HPI Problems or conditions discussed in the HPI were the only ones reviewed during the encounter.Only social and family history addressed in the HPI were reviewed during this encounter. Attendant(s): NoneConstitutional and Systemic Symptoms:none Medication Reconciliation: from medication list. Pugcibxaqau82/02/2023: Echocardiogram demonstrates an estimated ejection fraction of 55%. Nonspecific thickening of mitral valve leaflets with trace physiological mitral valve regurgitation. Aortic leaflets are structurally normal. No gradients noted. Tricuspid valve normal. 04/29/2022: Ultrasound of carotid artery demonstrated a 50 69% stenosis of the right internal carotid. Less than 50% of the left. Vertebral flow is antegrade bilaterally 05-28-2023: Pharmacological stress test showed a normal ECG with no ischemic ST or T-wave changes following the vasodilators stress. Normal size left ventricle. Left ventricular ejection fraction estimated at 55%. There was abnormal perfusion of the mid anterolateral region with moderate perfusion defect which is completely reversible. History of Present Illness #1. Coronary Artery Disease: There has been no change in frequency - duration - intensity in frequency, duration or intensity of chest pain. Other Complaints: none The frequency of anginal attacks is none at all. Additional Symptoms: none Therapy reviewed regarding cardiovascular management includes Amlodipine, Aspirin, Lisinopril and Metoprolol #2. Essential Hypertension: Stage: Stage I Interval Neurological Complaints no headaches, dizziness, weakness, visual changes, ataxia, aphasia and apraxia. No shortness of breath, orthopnea or cardiovascular symptoms. No other symptoms related to end organ damage. Pressure has been under excellent control. Currently normal. No other end organ symptoms or findings. Therapy reviewed regarding management of hypertension and includes salt restriction and Amlodipine, Lisinopril and Metoprolol. #3. Type II Hypercholesterolaemia: Currently taking medication and tolerating well. No interval complaints of any muscle pain or arthralgia. No significant liver changes with medications. Last lipid panel: excellent control. Therapy reviewed regarding treatment of cholesterol management and include diet and Repatha. #4. Hx of peripheral vascular disease. There has been no increase in intensity, severity or duration of claudication symptoms. Exertional capacity has remained essentially unchanged. Is able to walk one block without developing any claudication. No rest pain noted. Active Medication ListAspirin 81 MG One DailyXanax .5 MG TABLET One Qid For AnxietyNorco 325 MG-5 MG (TABLET - ORAL) One Four Times A DayProlia 60 MG/ ML (INJECTABLE - SUBCUTANEOUS) Q 6 MonthsDulcolax 100MG One BidOs-maria eugenia D 500MG DailyMetoprolol 50 MG (TABLET - ORAL) One DailyVitamin D 200MG DailyLisinopril 20 MG (TABLET - ORAL) One DialyRepatha 140 MG/ML INJECTION, SOLUTION One Every Two WeeksAmlodipine 5 MG TABLET One Daily Vaccination and Gdpyqkllmhku2197-70 Nuqajxdwh7540-04 Prevnar 13 Kz2730-58 [facility]Net[facility] Dvxazhy6289-03 CABG Sutures Ktdcdlq3335-75 Two Coronary Byhejv2381-67 Right Iliac Ymxeb9077-10 ELOH1481-08 Left Yizgoyqyuuboklqzbnbdv88 16-10 Left Carotid Xftvksmypoklat2671-06 Cholecystectomy Preventative Testing( ) 07/16/2023 Mammogram 07/15/2025( ) 06/04/2023 DEXA Scan 06/03/2025( ) 03/29/2023 Albumin 4.5 G/DL H( ) 11/26/2021 Colonoscopy ( 7 Years ) 11/26/2028( ) 12/20/2020 Ultrasound Carotids (50-69% RT. ICA)* 02/19/2025 Social HistorySmokes 5 cigarettes daily and has done so since shewas 16 y/o. Does drink socially. 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 Family HistoryMother in her 60's has CA of pancreas.Father at 68 [place].Has one brother and sister in good health although brother has had diverticulitis. Richie Laird MD [address] [facility], [facility] [address], [place], [address], [place] [facility] [place] [facility] [employer] 11/08/2023 15:31:24 12/22/2023 text/html Patient Name: Mac hardy ForrestDate Of Service: Wednesday ( 12.22.2023 ): 1955 Age: 68 Vital Signs:Blood Pressure: Sitting Rt. Arm 124/74Pulse: Sitting 87 /min and RegularRespiratory Rate: 16Height 64 in or 1.6 mWeight 107 lb or 48.5 kgBMI 18.4Temperature: 97 F or 36.1 CPulse Oximetry: 98 % at rest on no oxygen Chief Complaint: Addressed in HPI Problems or conditions discussed in the HPI were the only ones reviewed during the encounter.Only social and family history addressed in the HPI were reviewed during this encounter. Attendant(s): NoneConstitutional and Systemic Symptoms:none Medication Reconciliation: from medication list. History of Present Illness #1. 2-3 week history of pain and discomfort in the right arm. Apparently is in the hospital for erratic heartbeat. At that time had IV on the upper arm. Did not notice any problem at that time. Did not receive any specific medication that she is aware of through the IV. Since that time has had progressive pain and discomfort in the upper arm with some radiation down into the right hand particularly in the thumb index and 2nd finger. Has had some pain on even moving the fingers. There has been no swelling. No history of any other type of trauma. On evaluation of the arm there is no masses noted. There is no bruising no other evidence of any type of structural damage. No neurological deficits are noted.: Active Medication ListAspirin 81 MG One DailyXanax .5 MG TABLET One Qid For AnxietyNorco 325 MG-5 MG (TABLET - ORAL) One Four Times A DayProlia 60 MG/ ML (INJECTABLE - SUBCUTANEOUS) Q 6 MonthsDulcolax 100MG One BidOs-maria eugenia D 500MG DailyVitamin D 200MG DailyLisinopril 20 MG (TABLET - ORAL) One DialyRepatha 140 MG/ML INJECTION, SOLUTION One Every Two WeeksAmlodipine 5 MG TABLET One Daily Vaccination and Immunization( ) 2022-03 PNEUMOVAX( ) 2020-09 PREVNAR 13 GC(X) 2020-06 [facility] Kubrjxv6241-75 CABG Sutures Gqrrwht0423-77 Two Coronary Qafgwd5534-09 Right Iliac Vxruz1559-65 XPJI0430-94 Left Jpfdrqzyohpfjwrjnepsz90 16- Left Carotid Fwmsqfdhdohyow6734-54 Cholecystectomy Preventative Testing( ) 07/16/2023 Mammogram 07/15/2025( ) 06/04/2023 DEXA Scan 06/03/2025( ) 03/29/2023 Albumin 4.5 G/DL H( ) 11/26/2021 Colonoscopy ( 7 Years ) 11/26/2028( ) 12/20/2020 Ultrasound Carotids (50-69% RT. ICA)* 02/19/2025 Social HistorySmokes 5 cigarettes daily and has done so since shewas 16 y/o. Does drink socially. 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 Family HistoryMother in her 60's has CA of pancreas.Father at 68 [place].Has one brother and sister in good health although brother has had diverticulitis. Richie Laird MD [address] [place] [address], [place] [address], [place], [address], [facility] [place] [facility] 12/22/2023 15:45:12 03/13/2024 text/html Patient Name: Mac antony ForrestDate Of Service: Wednesday ( 03.13.2024 ): 1955 Age: 68 There has been approximately a 3 lb weight loss since 12/22/2023. This represents approximately a 2.8% change in weight. Weight change attributable to lifestyle changes. Vital Signs:Blood Pressure: Sitting Rt. Arm 132/60Pulse: Sitting 59 /min and RegularRespiratory Rate: 16Height 63.5 in or 1.6 mWeight 104 lb or 47.2 kgBMI 18.1Temperature: 97 F or 36.1 CPulse Oximetry: 95 % at rest on no oxygen Chief Complaint: Addressed in HPI Problems or conditions discussed in the HPI were the only ones reviewed during the encounter.Only social and family history addressed in the HPI were reviewed during this encounter. Attendant(s): NoneConstitutional and Systemic Symptoms:none and fever Medication Reconciliation: from medication list. Kkojqkkuhea26/02/2023: Echocardiogram demonstrates an estimated ejection fraction of 55%. Nonspecific thickening of mitral valve leaflets with trace physiological mitral valve regurgitation. Aortic leaflets are structurally normal. No gradients noted. Tricuspid valve normal. 04/29/2022: Ultrasound of carotid artery demonstrated a 50 69% stenosis of the right internal carotid. Less than 50% of the left. Vertebral flow is antegrade bilaterally 05-28-2023: Pharmacological stress test showed a normal ECG with no ischemic ST or T-wave changes following the vasodilators stress. Normal size left ventricle. Left ventricular ejection fraction estimated at 55%. There was abnormal perfusion of the mid anterolateral region with moderate perfusion defect which is completely reversible. 01-07-2024: CT scan of the chest without contrast no acute abnormalities noted. No evidence of any mediastinal hilar or axillary lymphadenopathy. There is severe coronary artery calcification and status post CABG procedure. No pulmonary nodules. 03-09-2024: nerve conduction study essentially normal no nerve significant damage. History of Present Illness #1. Coronary Artery Disease: There has been no change in frequency - duration - intensity in frequency, duration or intensity of chest pain. Other Complaints: none The frequency of anginal attacks is none at all. Additional Symptoms: none Therapy reviewed regarding cardiovascular management includes Amlodipine and Lisinopril #2. Essential Hypertension: Stage: Stage I Interval Neurological Complaints no headaches, dizziness, weakness, visual changes, ataxia, aphasia and apraxia. No shortness of breath, orthopnea or cardiovascular symptoms. No other symptoms related to end organ damage. Pressure has been under excellent control. Currently normal. No other end organ symptoms or findings. Therapy reviewed regarding management of hypertension and includes Amlodipine and Lisinopril. #3. Type II Hypercholesterolaemia: Currently taking medication and tolerating well. No interval complaints of any muscle pain or arthralgia. No significant liver changes with medications. Last lipid panel: suboptimal by ATP III guidelines. Therapy reviewed regarding treatment of cholesterol management and include Repatha. #4. Hx of peripheral vascular disease. There has been no increase in intensity, severity or duration of claudication symptoms. Exertional capacity has remained essentially unchanged. Is able to walk one block without developing any claudication. No rest pain noted. Active Medication ListAspirin 81 MG One DailyXanax .5 MG TABLET One Qid For AnxietyNorco 325 MG-5 MG (TABLET - ORAL) One Four Times A DayProlia 60 MG/ ML (INJECTABLE - SUBCUTANEOUS) Q 6 MonthsDulcolax 100MG One BidOs-maria eugenia D 500MG DailyVitamin D 200MG DailyLisinopril 20 MG (TABLET - ORAL) One DialyRepatha 140 MG/ML INJECTION, SOLUTION One Every Two WeeksAmlodipine 5 MG TABLET One Daily Vaccination and Immunization(X) 2020- COVID PFIZER( ) 2020-09 PREVNAR 13 GC( ) 2022-03 PNEUMOVAX Surgical [id number] CABG Sutures [id number] Two Coronary [id number] Right Iliac [id number] [id number] Left Tfncdkqfiicqbukvezhzf15 - Left Carotid Icdnbhcjgwfcgj9119-50 Cholecystectomy Preventative Testing( ) 01/07/2024 CT Thorax( ) 07/16/2023 Mammogram 07/15/2025( ) 06/04/2023 DEXA Scan 06/03/2025( ) 03/29/2023 Albumin 4.5 G/DL H( ) 11/26/2021 Colonoscopy ( 7 Years ) 11/26/2028(X) 12/20/2020 Ultrasound Carotids (50-69% RT. ICA)* 12/20/2020 Social HistorySmokes 5 cigarettes daily and has done so since shewas 16 y/o. Does drink socially. 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 Family HistoryMother in her 60's has CA of pancreas.Father at 68 [place]Has one brother and sister in good health although brother has had diverticulitis. TEST RESULT RANGE UNITSVITAMIN D 25-HYDROXY Date: 06/24/2023VD25OH 60.3 30-100 NG/MLCBC/COMPLETE BLD COUNT W/DIFF Date: 03/29/2023WHITE BLOOD CELLS 6.2 4.2-10.8 X10'3/ULHEMOGLOBIN 12.2 12.0-15.6 G/DLHEMATOCRIT 37.9 35.7-45.7 %PLATELETS 345 150-400 X10'3/ULCOMPREHENSIVE METABOLIC PANEL Date: 03/29/2023SODIUM 140 137-145 MMOL/LPOTASSIUM 4.6 3.5-5.1 MMOL/LGLUCOSE 90 70-99 MG/DLBUN 15 8-19 MG/DLCREATININE 0.96 0.66-1.25 MG/DLGFR 58ALKALINE PHOSPHATASE 75 38-126 U/LALANINE AMINOTRANSFERASE 25 0-35 U/LASPARTATE AMINOTRANSFERASE 32 15-37 U/LBILIRUBIN, TOTAL 0.30 0.20-1.30 MG/DLCALCIUM 10.4 8.4-10.2 MG/DLLIPID PANEL Date: 03/29/2023HOLESTEROL 252 140-199 MG/DLTRIGLYCERIDES 191 0-150 MG/DLHDL CHOLESTEROL 73 40- MG/DLLDL CHOLESTEROL, CALCULATED 141 0-130 MG/DLT4 FREE Date: 03/29/2023FREE T4 0.93 0.78-2.19 NG/DLTSH Date: 03/29/2023THYROID-STIMU LATING HORMONE 0.623 0.465-4.680 UIU/ML Richie Laird MD [address] [facility], [facility] [address], [place], [address], [place] 03/13/2024 15:18:42 OBGyn Episode No OBEpisode recorded.
--- OUTSIDE RECORDS SUMMARY | 2024-06-29 14:08 | XMS_ITS | Encounter Summary ---
Author Organization [facility] Facility Care Team Providers Care Cocoa Roaster Name Role Phone Unknown, Notinfile Primary Care Provider Unavail able Unknown, Notinfile Primary Care Provider Unavail able Travon Lopez MD Unavailable Unknown, Notinfile Primary Care Provider Unavail able Vikas Nolasco MD Unavailable Vlad Laird MD Primary Care Provider Encounter Details Date Type Department Care Team (Latest Contact Info) Description 01/02/2016 Orders Only [facility] CLINCONV ProviderGretel MD [address] [place] [id number] Social History Tobacco Use Types Packs/Day Years Used Date Smoking Tobacco: Never Assessed Comments Unknown Sex and Gender Information Value Date Recorded Sex Assigned at Not on file Legal Sex Female 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 Gender Identity Not on file Sexual [...] on filedocumented in this encounter Care Teams Cocoa Roaster Relationship Specialty Start Date End Date Unknown, Notinfile PCP - General 12/27/20 02/04/21 Unknown, Notinfile PCP - General 02/05/21 02/05/21 Unknown, Notinfile PCP - General 02/06/21 11/24/23 Vlad Laird MD [address] [facility] [address] [place] [address] PCP - General Internal Medicine 11/25/23 Travon Lopez MD [address] [place] [address] Consulting Physician Cardiovascular Disease 02/06/21 Vikas Nolasco MD [address] [place] [address] Consulting Physician Pain Management 07/07/22 documented as of this encounter
--- OUTSIDE RECORDS SUMMARY | 2024-06-29 14:08 | XMS_ITS | Encounter Summary ---
Author Organization [facility] Facility Care Team Providers Care Pet Feeder Name Role Phone Unknown, Notinfile Primary Care Provider Unavail able Unknown, Notinfile Primary Care Provider Unavail able Travon Lopez MD Unavailable Unknown, Notinfile Primary Care Provider Unavail able Vikas Nolasco MD Unavailable Vlad Laird MD Primary Care Provider Encounter Details Date Type Department Care Team (Latest Contact Info) Description 12/26/2015 Orders Only [facility] CLINCONV ProviderGretel MD [address] [place] [id number] Social History Tobacco Use Types Packs/Day Years Used Date Smoking Tobacco: Never Assessed Comments Unknown Sex and Gender Information Value Date Recorded Sex Assigned at Not on file 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 Gender Identity Not on file Sexual Orientation [...] on filedocumented in this encounter Care Teams Pet Feeder Relationship Specialty Start Date End Date Unknown, Notinfile PCP - General 12/27/20 02/04/21 Unknown, Notinfile PCP - General 02/05/21 02/05/21 Unknown, Notinfile PCP - General 02/06/21 11/24/23 Vlad Laird MD [address] [facility] [address] [place] [address] PCP - General Internal Medicine 11/25/23 Travon Lopez MD [address] [place] [address] Consulting Physician Cardiovascular Disease 02/06/21 Vikas Nolasco MD [address] [place] [address] Consulting Physician Pain Management 07/07/22 documented as of this encounter
--- OUTSIDE RECORDS SUMMARY | 2024-06-29 14:09 | XMS_ITS | Encounter Summary ---
Author Organization [facility] Facility Care Team Providers Care Rumper Name Role Phone Unknown, Notinfile Primary Care Provider Unavail able Unknown, Notinfile Primary Care Provider Unavail able Travon Lopez MD Unavailable Unknown, Notinfile Primary Care Provider Unavail able Vikas Nolasco MD Unavailable Vlad Laird MD Primary Care Provider Encounter Details Date Type Department Care Team (Latest Contact Info) Description 01/01/2016 Orders Only [facility] CLINCONV ProviderGretel MD [address] [place] [address] Social History Tobacco Use Types Packs/Day Years Used Date Smoking Tobacco: Never Assessed Comments Unknown Sex and Gender Information Value Date Recorded Sex Assigned at Not on file Legal Sex Female 12:44 PM 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 us Gretel Provider Final Res ult documented in this encounter Visit Diagnoses Not on filedocumented in this encounter Care Teams Rumper Relationship Specialty Start Date End Date Unknown, Notinfile PCP - General 12/27/20 02/04/21 Unknown, Notinfile PCP - General 02/05/21 02/05/21 Unknown, Notinfile PCP - General 02/06/21 11/24/23 Vlad Laird MD [address] [facility] [address] [place] [address] PCP - General Internal Medicine 11/25/23 Travon Lopez MD [address] [place] [address] Consulting Physician Cardiovascular Disease 02/06/21 Vikas Nolasco MD [address] [place] [address] Consulting Physician Pain Management 07/07/22 documented as of this encounter
== END 2024-06-29 13:04 | disposition home or self-care (01) ==
PROVIDERS: PCP Internal Medicine; Visit Provider Internal Medicine
DX: E04.2 Nontoxic multinodular goiter (principal); M81.0 Age-related osteoporosis without current pathological fracture
CPT/HCPCS: 76536

== ENCOUNTER 2024-09-05 12:49 | Emergency (ER) | payer MEDICARE, MEDICAID, SELFPAY ==
--- NOTE | 2024-09-05 12:51 | ED_ITS ---
HPI - Fall General Chief Complaint: Fall Stated Complaint: fall Time Seen by Provider: 09/05/24 12:51 Source: patient Mode of arrival: ambulatory Limitations: no limitations History of Present Illness HPI Narrative: Patient is a 69-year-old female who presents after fall 2 days ago. Patient was walking her son's dog when the dog took off and flung her for onto concrete. Patient mostly concerned for right wrist/thumb pain but also has abrasions to left elbow, left knee and bruise on left hip. Denies hitting her head. Reports full body pain yesterday. Related Data Home Medications ?Medication ?Instructions ?Recorded ?Confirmed ?Last Taken ?Type alprazolam 1 mg tablet 1 mg PO BID 05/26/24 06/15/24 Unknown History amlodipine 5 mg tablet 5 mg PO DAILY 05/26/24 06/15/24 Unknown History ascorbic acid-ascorbate calcium 1 tablet PO DAILY 05/26/24 06/15/24 Unknown History 200 mg chewable tablet aspirin 81 mg tablet,delayed 81 mg PO BID 05/26/24 06/15/24 Unknown History release (Judy Low Dose Aspirin) cholecalciferol (vitamin D3) 250 250 mcg PO WEEKLY 05/26/24 06/15/24 Unknown History mcg (10,000 unit) capsule denosumab 60 mg/mL subcutaneous 60 mg subcut [id number] 05/26/24 06/15/24 Unknown History syringe (Prolia) docusate sodium 100 mg capsule 100 mg PO DAILY 05/26/24 06/15/24 Unknown History (Dulcolax Stool Softener (docusate)) lisinopril 20 mg tablet 20 mg PO BID 05/26/24 06/15/24 Unknown History metoprolol succinate 25 mg 25 mg PO DAILY 05/26/24 06/15/24 Unknown History tablet,extended release 24 hr [id number] 8 mg-folic 400 1 tablet PO DAILY 05/26/24 06/15/24 Unknown History mcg-K 50 mcg-lutein 300 mcg tablet (Centrum Silver Women) oxybutynin chloride 5 mg tablet 2.5 mg PO BID 05/26/24 06/15/24 Unknown History Allergies Allergy/AdvReac Type Severity Reaction Status Date / Time statin AdvReac Intermediate Muscle Pain Uncoded 09/05/24 12:51 Review of Systems Review of Systems: All systems reviewed & are unremarkable except as noted in HPI and below Constitutional: Constitutional: Denies body ache(s), Denies chills, Denies fatigue, Denies fever(s), Denies headache(s), Denies malaise and Denies weakness Eyes: Eyes: Denies blurry vision, Denies irritation and Denies loss of vision ENT: Denies otalgia, Denies headache(s), Denies nasal discharge, Denies sinus pain and Denies sore throat Cardiovascular: Cardiovascular: Denies chest pain, Denies irregular heart rhythm and Denies dyspnea Respiratory: Respiratory: Denies dyspnea Gastrointestinal: Gastrointestinal: Denies abdominal pain, Denies melena, Denies hematochezia, Denies diarrhea, Denies nausea and Denies vomiting Musculoskeletal: Musculoskeletal: Denies back pain, Denies myalgias and Reports arthralgias Integumentary/Breasts: Skin/Breast: Denies pruritus and Denies rash Neurologic: Denies headache(s), Denies loss of vision and Denies weakness Psychiatric: Psychiatric: Reports no additional psychiatric complaints Endocrine: Endocrine: Denies fatigue PMFSH Past Medical History Medical History Hyperlipidemia Age related osteoporosis Depression Surgical History Surgical History Hx of hysterectomy History of cholecystectomy H/O section Family History Family History Mother Pancreatic cancer Social History Social History Smoking status: Former smoker Alcohol intake: never Substance use: current Substance use type: marijuana Other substance usage details: gummies once in awhile Do You Feel Safe in your Home?: Yes Lack of Transportation: YES Lack of Food: Never True Current Housing: I Have Housing Concerned About Future Housing: No Difficulty Paying Gas/Electric Bills: No Difficulty Paying for Meds: No Currently Unemployed: YES Education: Associate Degree Difficulty w/ Childcare or Family Care: No Living arrangements: alone Occupation/Education: retired Gender identity (if verbalized by the patient): Female Sexual Orientation (if Verbalized by the Patient): Straight or Heterosexual Spiritual care concerns: No Agree to blood products: Yes Comments At time of signature, agree with nursing past medical, surgical, social and family history. There is no relevant family history pertinent to the presenting complaint. Exam Const: General: cooperative, healthy appearing, comfortable, no acute distress and well nourished Nutritional Appearance: well nourished Orientation/consciousness: patient oriented x3 Limitations: no limitations HENMT: Head: normal to inspection, normocephalic and atraumatic Ears: hearing grossly normal bilaterally and external ears normal Face/Nose/Sinus: Normal external nose present, normal facial exam and face symmetric Face and sinus: normal facial exam and face symmetric Mouth: Yes lip normal Eyes: General: appearance normal, both eyes and all related structures Alignment and Position: alignment normal and position normal Periorbital: periorbital findings normal Eyelids: eyelids normal Pupils: Equal, round and reactive pupils present EOM: EOMs intact bilaterally Neck: Neck: normal visual inspection, full ROM and supple Chest: Chest palpation & inspection: normal inspection of the chest Resp: Effort & Inspection: normal respiratory effort and able to speak in complete sentences Auscultation: clear to auscultation bilaterally Cardio: Rate: regular rate Rhythm: regular rhythm Heart sounds: S1 normal heart sound present and S2 normal heart sound present GI: Inspection: normal to inspection Skin: General skin exam: normal color and no rashes or lesions noted Neuro: General: patient oriented x3 and moves all extremities Cranial n erves: Yes Equal, round and reactive pupils present Speech: normal speech Gait exam (Neuro): Normal gait present Extrem: General: normal to inspection, full ROM and no edema Right upper extremity: shoulder/upper arm normal to inspection, axillary nerve sensory function normal and normal ROM; no tenderness and no swelling, elbow/forearm normal to inspection, normal ROM and abrasion elbow ; no tenderness and no swelling, wrist normal to inspection, tenderness of the distal radius and of the anatomic snuffbox, abnormal ROM pain with active ROM during with flexion; not with extension, not with ABduction and not with ADduction, ecchymosis wrist volar-lateral single, normal vascular exam and radial pulse present; no swelling and Extremity exam: right hand normal to inspection, normal capillary refill, neuromotor exam normal wrist extension normal, thumb opposition normal, thumb IP flexion normal, thumb ADduction normal and fingers 2-5 ABduction normal, neurosensory exam normal radial nerve sensory function normal, ulnar nerve sensory function normal, median nerve sensory function normal and digital nerve sensory function normal, tendon exam normal of all digits extensor tendon, flexor digitorum profundus and flexor digitorum superficialis, vascular exam radial pulse present and normal capillary refill and normal ROM of fingers; no tenderness Right lower extremity: hip/thigh Details: normal to inspection, tenderness Location: of the proximal upper leg Location: laterally, normal ROM and ecchymosis proximal upper leg posterolateral ; no swelling, knee Details: normal to inspection, normal ROM and abrasion knee lateral Details: single; no tenderness and no swelling and lower leg Details: normal to inspection; no tenderness Psych: Appearance: grossly normal and well kempt Mental Status: mental status grossly normal Speech and movement: Normal speech and movement present Affect: normal affect Attitude: cooperative Thought process: Normal thought process present Course Course Emergency Course: Patient is aware of diagnosis, understands and agrees to treatment plan. Anticipatory guidance given. Patient agrees to follow-up as directed and is aware of reasons to seek care at the emergency department. Portions of this record may have been created with voice recognition software Level of Care: Express Care Visit Vital Signs Vital signs: Vital Signs Temperature 36.6 C 09/05/24 12:56 Pulse Rate 54 L 09/05/24 12:56 Respiratory Rate 16 09/05/24 12:56 Blood Pressure 113/69 09/05/24 12:56 Pulse Oximetry 100 09/05/24 12:56 Oxygen Delivery Room Air 09/05/24 12:56 Temperature 36.6 C 09/05/24 12:56 Pulse Rate 54 L 09/05/24 12:56 Respiratory Rate 16 09/05/24 12:56 Blood Pressure 113/69 09/05/24 12:56 Pulse Oximetry 100 09/05/24 12:56 Oxygen Delivery Room Air 09/05/24 12:56 Reviewed MDM - Fall MDM Narrative Medical decision making narrative: Discussed transfer to [facility] for imaging of right wrist. Patient states she is unable to go at this time and will call her PCP if not improving in a few days. Will Devin wrap wrist. No concern for fracture of elbow, hip or knee where abrasions/bruising occurs. Pt well hydrated appearing, in no respiratory distress, hemodynamically stable. Recommend supportive care. The patient is stable at time of discharge the clinical impression was discussed and the patient was given the opportunity to ask questions, which were addressed as completely as possible given the information available at present. Anticipatory guidance and return to care precautions were discussed and the importance of primary care follow-up was stressed and encouraged. The patient voiced understanding of the plan, indications to return, and the need for follow-up. Exam findings show no acute concerns or changes Patient is appropriate for outpatient treatment and follow-up. Differential Diagnosis Differential diagnosis: Likely other (Fall, wrist sprain, wrist fracture, abrasion, bursitis) Medical Records Attestation: I reviewed the patient's medical records. Discharge Plan Discharge Clinical Impression: Fall, Acute pain of right wrist, Acute pain of right knee, Acute pain of right hip, Right elbow pain Patient Disposition: Home Condition: Stable Instructions: Fall Prevention (ED), Wrist Sprain (ED) Additional Instructions: You reported you fell.After any fall we expect you to be very sore over the next several days to 1 week. This is because your body was moved in different directions. Also sometimes people tense up during a fall. Either way, the muscles were strained after a fall and can be expected to be sore. This soreness is usually worse on the 2nd, 3rd and 4th days following a fall. Take the Tylenol as directed to help with pain and to decrease inflammation.Using Topicals such as biofreeze, bengay or aspercream will also help.Drink plenty of fluids and get plenty of rest to help your body heal.Follow up with PCP in 7-10 days.Return to ER for problems. Minimize activities that aggravate the condition The RICE protocol. Follow the RICE protocol as soon as possible after your injury:. Ice should be immediately applied to keep the swelling down. It can be used for 20 to 30 minutes, three or four times daily. Do not apply ice directly to your skin. Compression dressings, bandages or devin-wraps will immobilize and support your injured wrist. Elevate your Wrist above the level of your heart as often as possible during the first 48 hours. Medication: For pain, you may take: Tylenol 650-1000mg by mouth every 4-6 hours. Do not exceed 4000mg in 24 hours. Advil (Ibuprofen) 600 mg by mouth every 6 hours. Do not exceed 2400mg in 24 hours. 8 AM: Tylenol 11 AM: Ibuprofen 2 PM: Tylenol 5 PM: Ibuprofen 8 PM: Tylenol 11 PM: Ibuprofen 2 AM: Tylenol 5 AM: Ibuprofen Please schedule a follow-up visit with your personal physician for further e valuation and treatment within 1week OR If your symptoms persist, change or worsen significantly before you can contact your personal physician then please, without delay, go to the emergency department for further evaluation. Patient Language: Wolof Prescriptions: No Action Prolia 60 mg/mL syringe 60 mg subcut [id number] aspirin [Judy Low Dose Aspirin] 81 mg tablet,delayed release (DR/EC) 81 mg PO BID lisinopril 20 mg tablet 20 mg PO BID metoprolol succinate 25 mg tablet extended release 24 hr 25 mg PO DAILY oxybutynin chloride 5 mg tablet 2.5 mg PO BID amlodipine 5 mg tablet 5 mg PO DAILY alprazolam 1 mg tablet 1 mg PO BID cholecalciferol (vitamin D3) 250 mcg (10,000 unit) capsule 250 mcg PO WEEKLY Centrum Silver Women 8 mg iron-400 mcg-50 mcg tablet 1 tablet PO DAILY ascorbic acid-ascorbate calc 200 mg tablet,chewable 1 tablet PO DAILY docusate sodium [Dulcolax Stool Softener (dss)] 100 mg capsule 100 mg PO DAILY Follow-up/Referrals: Eitan,Vlad Morfin MD [Primary Care Provider] - 3 Days Time of Disposition: 13:25
[2024-09-05 12:56] VITALS: BP 113/69; PULSE 54; RESP 16; TEMP 36.6; O2SAT 100
== END 2024-09-05 13:32 | disposition home or self-care (01) ==
PROVIDERS: Emergency Provider Nurse Practitioner Family; PCP Internal Medicine
DX: M25.531 Pain in right wrist (principal); M25.561 Pain in right knee; M25.551 Pain in right hip; M25.521 Pain in right elbow; Z87.891 Personal history of nicotine dependence; E78.5 Hyperlipidemia, unspecified; M81.0 Age-related osteoporosis without current pathological fracture; Z79.82 Long term (current) use of aspirin
CPT/HCPCS: 99211; G0463

== ENCOUNTER 2024-09-07 11:54 | Outpatient (CLI) | payer MEDICARE, MEDICAID, SELFPAY ==
--- NOTE | ~2024-09-07 | XR_ITS ---
Right elbow Technique: AP, oblique, and lateral views were obtained. Clinical History: Pain Findings: No acute fracture or dislocation is seen. Osseous alignment is anatomic. Joint spaces are p reserved. There is no displacement of the fat pads, and soft tissues are unremarkable. Impression: Unremarkable radiographs. Reviewed, dictated and finalized at location . Impression: Unremarkable radiographs.
--- NOTE | ~2024-09-07 | XR_ITS ---
EXAM/ PROCEDURE: XR wrist RT min 3V - 09/07/2024 12:10 CDT HISTORY: 69 years old Female with PAIN IN R WRIST,ELBOW AND KNEE COMPARISON: None available TECHNIQUE: Three view(s) FINDINGS/ IMPRESSION: There are no fractures or dislocations.Joint space narrowing, subchondral sclerosis, subchondral cyst formation and osteophyte formation, compatible with mild osteoarthritis. Reviewed, dictated and finalized at location A.
--- OUTSIDE RECORDS SUMMARY | 2024-09-07 12:00 | XMS_ITS | Encounter Summary ---
Author Organization [facility] Facility Care Team Providers Care Heat Treat Technician Name Role Phone Unknown, Notinfile Primary Care Provider Unavail able Unknown, Notinfile Primary Care Provider Unavail able Travon Lopez MD Unavailable Unknown, Notinfile Primary Care Provider Unavail able Vikas Nolasco MD Unavailable Vlad Laird MD Primary Care Provider Sina Mata MD Unavailable [phone] Encounter Details Date Type Department Care Team (Latest Contact Info) Description 12/26/2015 Orders Only [facility] CLINCON[facility] ProviderGretel MD [address] [place] [address] Social History Tobacco Use Types Packs/Day Years Used Date Smoking Tobacco: Never Assessed Comments Unknown Sex and Gender Information Value Date Recorded Sex Assigned at Not on file 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 us Historical Provider [facility] DONTRELL ESPARZA Final Result documented in this encounter Visit Diagnoses Not on filedocumented in this encounter Care Teams Heat Treat Technician Relationship Specialty Start Date End Date Unknown, Notinfile PCP - General 12/27/20 02/04/21 Unknown, Notinfile PCP - General 02/05/21 02/05/21 Unknown, Notinfile PCP - General 02/06/21 11/24/23 Vlad Laird MD [address] [facility] 23 [facility] 23 [place] [address] PCP - General Internal Medicine 11/25/23 Travon Lopez MD [address] [place] [address] Consulting Physician Cardiovascular Disease 02/06/21 Vikas Nolasco MD [address] [place] [address] Consulting Physician Pain Management 07/07/22 Sina Mata MD [address] [place] [address] Consulting Physician Cardiology 07/14/24 documented as of this encounter
--- OUTSIDE RECORDS SUMMARY | 2024-09-07 12:00 | XMS_ITS | Encounter Summary ---
Author Organization [facility] Facility Care Team Providers Care Baker Test Name Role Phone Unknown, Notinfile Primary Care Provider Unavail able Unknown, Notinfile Primary Care Provider Unavail able Travon Lopez MD Unavailable Unknown, Notinfile Primary Care Provider Unavail able Vikas Nolasco MD Unavailable Vlad Laird MD Primary Care Provider Sina Mata MD Unavailable [phone] Encounter Details Date Type Department Care Team (Latest Contact Info) Description 09/25/2016 Orders Only [facility] CLINCONV ProviderGretel MD [address] [place] [address] Social History Tobacco Use Types Packs/Day Years Used Date Smoking Tobacco: Never Assessed Comments Unknown Sex and Gender Information Value Date Recorded Sex Assigned at Not on file 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 Gender Identity Not on file Sexual Orientation [...] on filedocumented in this encounter Care Teams Baker Test Relationship Specialty Start Date End Date Unknown, Notinfile PCP - General 12/27/20 02/04/21 Unknown, Notinfile PCP - General 02/05/21 02/05/21 Unknown, Notinfile PCP - General 02/06/21 11/24/23 Vlad Laird MD [address] [facility] [address] [place] [address] [place] [address] PCP - General Internal Medicine 11/25/23 Travon Lopez MD [address] [place] [address] Consulting Physician Cardiovascular Disease 02/06/21 Vikas Nolasco MD [address] [place] [address] Consulting Physician Pain Management 07/07/22 Sina Mata MD [address] [place] [address] Consulting Physician Cardiology 07/14/24 documented as of this encounter
--- OUTSIDE RECORDS SUMMARY | 2024-09-07 12:00 | XMS_ITS | Encounter Summary ---
Author Organization [facility] Facility Care Team Providers Care Curling Machine Operator Name Role Phone Unknown, Notinfile Primary Care Provider Unavail able Unknown, Notinfile Primary Care Provider Unavail able Travon Lopez MD Unavailable Unknown, Notinfile Primary Care Provider Unavail able Vikas Nolasco MD Unavailable Vlad Laird MD Primary Care Provider Sina Mata MD Unavailable [phone] Encounter Details Date Type Department Care Team (Latest Contact Info) Description 12/21/2015 Orders Only [facility] CLINCONV ProviderGretel MD [address] [place] [address] Social History Tobacco Use Types Packs/Day Years Used Date Smoking Tobacco: Never Assessed Comments Unknown Sex and Gender Information Value Date Recorded Sex Assigned at Not on file 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 Gender Identity Not on file Sexual Orientation [...] on filedocumented in this encounter Care Teams Curling Machine Operator Relationship Specialty Start Date End Date Unknown, Notinfile PCP - General 12/27/20 02/04/21 Unknown, Notinfile PCP - General 02/05/21 02/05/21 Unknown, Notinfile PCP - General 02/06/21 11/24/23 Vlad Laird MD [address] [facility] 23 [facility] [address] [place] [address] PCP - General Internal Medicine 11/25/23 Travon Lopez MD [address] [place] [address] Consulting Physician Cardiovascular Disease 02/06/21 Vikas Nolasco MD [address] [place] [address] Consulting Physician Pain Management 07/07/22 Sina Mata MD [address] [place] [address] Consulting Physician Cardiology 07/14/24 documented as of this encounter
--- OUTSIDE RECORDS SUMMARY | 2024-09-07 12:00 | XMS_ITS | Encounter Summary ---
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 Name Role Phone Unknown, Notinfile Primary Care Provider Unavail able Unknown, Notinfile Primary Care Provider Unavail able Travon Lopez MD Unavailable Unknown, Notinfile Primary Care Provider Unavail able Vikas Nolasco MD Unavailable Vlad Laird MD Primary Care Provider Sina Mata MD Unavailable [phone] Encounter Details Date Type Department Care Team (Latest Contact Info) Description 01/02/2016 Orders Only [facility] CLINCONV ProviderGretel MD [address] [place] [address] Social History Tobacco Use Types Packs/Day Years Used Date Smoking Tobacco: Never Assessed Comments Unknown Sex and Gender Information Value Date Recorded Sex Assigned at Not on file Legal 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 Gender Identity Not on file [...] on filedocumented in this encounter Care Teams Laborer Pole Crew Relationship Specialty Start Date End Date Unknown, Notinfile PCP - General 12/27/20 02/04/21 Unknown, Notinfile PCP - General 02/05/21 02/05/21 Unknown, Notinfile PCP - General 02/06/21 11/24/23 Vlad Laird MD [address] [facility] 23 [facility] 23 [place] [address] PCP - General Internal Medicine 11/25/23 Travon Lopez MD [address] [place] [address] Consulting Physician Cardiovascular Disease 02/06/21 Vikas Nolasco MD [address] [place] [address] Consulting Physician Pain Management 07/07/22 Sina Mata MD [address] [place] [address] Consulting Physician Cardiology 07/14/24 documented as of this encounter
--- OUTSIDE RECORDS SUMMARY | 2024-09-07 12:00 | XMS_ITS | Data Portability ---
Author Organization [place] - [facility] [email or web address], Main Office Address [address] [place] [address] Assessment Encounter Date Assessment Date Assessment LastModified by Organization Details LastModified Time 09/09/2023 09/09/2023 This note is dictated and transcribed by [employer]. [employer] Chief variances may occur. Despite proofreading, typographical errors may occur. Occasional wrong-word or 'mkcex-p-fxqa' substitutions may have occurred due to the inherent limitations of voice recording. Read the chart carefully and recognize, using context, where substitutions have occurred. [email or web address] Not available 09/29/2023 15:38:33 Plan of Treatment Reminders Order Date Submit Date Provider Last Modified By Organization Details Last Modified Time Details Appointments None recorded . Lab CBC w/ auto diff 025 08/22/19 25 [facility], [address] [place], [address], 5 14:55:49 CMP, serum or plasma 025 08/22/19 25 [email or web address] [facility], [address] [place], [address], 5 14:55:49 lipid panel, serum 025 08/22/19 25 [id number] [facility], [address] [place], [address], 5 14:55:50 TSH, serum or plasma 025 08/22/19 25 [facility], [address] [place], [address], 5 14:55:50 T4, free, serum 025 08/22/[id number] Out[facility], [address] [place], [address], 5 14:55:50 magnesiu m, serum or plasma 025 08/22/[id number] [place] [address] - Outpatient Lab, [address] [place], [address], 5 14:55:50 lipid panel, serum 025 03/13/[id number] Out[facility] Lab, [address] [place] [address], [address], 5 16:04:10 CMP, serum or plasma 025 03/13/[id number] [place] [address] Outpatient Lab, [address] [place], [address], 5 16:04:11 T4, free, serum 025 03/13/[id number] [place] [address] Outpatient Lab, [address] [place] [address], [address], 5 16:04:11 TSH, serum or plasma 025 03/13/[id number] [place] [address] Outpatient Lab, [address] [place], [address], 5 16:04:11 CBC w/ auto diff 025 03/13/[id number] [place] [address] - Outpatient Lab, [address] [place], [address], 5 16:04:11 lipid panel, serum 024 11/08/19 24 [facility]ON[facility]O [facility] - Outpatient Lab, [address] [place], [address], 4 13:36:49 CMP, serum or plasma 024 11/08/19 24 [facility] Outpatient Lab, [address] [place], [address], 4 13:37:00 T4, free, serum 11/08/19 24 [facility], [address] [place], [address], 4 13:47:11 TSH, serum or plasma 11/08/19 24 [facility], [address] [place], [address], 4 13:46:57 T3, free, serum or plasma 11/08/19 24 [facility], [address] [place], [address], 4 13:47:15 Referral None recorded . Procedures None recorded . Surgeries None recorded . Imaging None recorded . Medication Orders None recorded . Patient TargetsNo targets recorded. Patient Instructions Encounter Date Encounter Id Patient Instructions Last Modified By Organization Details Last Modified Time 11/08/2023 [id number] Follow-up jasso ry artery disease, essential hypertension, [...] with voice recognition software. Occasional wrong-word or tuobw-s-oqnd substitutions may have occurred due to the inherent limitations of voice recognition software. Read the chart carefully and recognize, using context, where substitutions have occurred. [email or web address] Not available 11/08/2023 15:31:07 12/22/2023 [id number] Right radiculopa thy of the arm etiology [...] outlet syndrome. Keep Appointment: Wed 01:40 PM [place] Portions of the record may have been created with voice recognition software. Occasional wrong-word or fyndj-f-xtpc substitutions may have occurred due to the inherent limitations of voice recognition software. Read the chart carefully and recognize, using context, where substitutions have occurred. Not available 12/22/2023 15:44:54 03/13/2024 [id number] Follow-up jasso ry artery disease, essential hypertension, [...] with voice recognition software. Occasional wrong-word or zkdoc-u-rnmy substitutions may have occurred due to the inherent limitations of voice recognition software. Read the chart carefully and recognize, using context, where substitutions have occurred. Created: Richie Laird M.D. 03.13.2024 02:18 PM [email or web address] Not available 03/13/2024 15:18:25 08/21/2024 [id number] Medicare wellnes s evaluation risk assessment stable. Follow-up for coronary artery disease, essential hypertension, hyperlipidemia, peripheral vascular disease as well as ventricular tachycardia. All clinically stable. Check blood work in the form of CBC, CMP, lipid, thyroid, magnesium level. Will continue on current Rx recheck back in four months. Follow Up: 4 Months Approximate Date: 12/19/2024 Portions of record are template driven. When necessary additional context will be provided. Additionally some portions have been created with voice recognition software. Occasional wrong-word or irfju-j-wozl substitutions may have occurred due to the inherent limitations of voice recognition software. Read the chart carefully and recognize, using context, where substitutions may have occurred. Created: Richie Laird M.D. 08.21.2024 03:26 PM Not available 08/21/2024 16:26:44 Reason for Referral None Reported. Results Created Date Observation Date Name Description Value Unit Range Abnormal Flag Note LastModifiedBy Organization Detail LastModifiedTime 11/12/19 24 11/12/2023 LIPID PANEL cholesterol 211 mg/dL 140-19 9 high NIH RONALD NSUS RECOM MENDA TION FOR DEISY STERO L: ADULT CHILD LOW RISK: <200 <170 BORDE RLINE : <200- 239 ----- HIGH RISK: >240 >200 Not Available [facility] (Lab) [address] [place], [address], 11/12/2023 13:36:49 11/12/19 24 11/12/2023 LIPID PANEL triglyceride s 229 mg/dL 0-150 high NIH RONALD NSUS REPOR T RECOM MENDA TION FOR TRIGL YCERI JOSH: ADULT CHILD LOW RISK: <150 ----- BODER LINE: 150-1 99 ----- HIGH RISK: >200 ----- Not Available [facility] (Lab) [address] [place], [address], 11/12/2023 13:36:49 11/12/19 24 11/12/2023 LIPID PANEL HDL cholesterol 67 mg/dL 40- Not Available [facility] (Lab) [address] [place], [address], 11/12/2023 13:36:49 11/12/19 24 11/12/2023 LIPID PANEL LDL cholesterol, calculated 98 mg/dL [...] WILL NOT BE REPOR WEST. Not Available [facility] (Lab) [address] [place], [address], 11/12/2023 13:36:49 11/12/19 24 11/12/2023 COMPR EHENS ERIN METAB OLIC PANEL sodium 136 mmol/ L 137-14 5 low Not Available [facility] (Lab) [address] [place], [address], 11/12/2023 13:37:00 11/12/19 24 11/12/2023 COMPR EHENS ERIN METAB OLIC PANEL potassium 4.4 mmol/ L 3.5-5. 1 Not Available [facility] (Lab) [address] [place], [address], 11/12/2023 13:37:00 11/12/19 24 11/12/2023 COMPR EHENS ERIN METAB OLIC PANEL chloride 106 mmol/ L 98-107 Not Available [facility] (Lab) [address] [place], [address], 11/12/2023 13:37:00 11/12/19 24 11/12/2023 COMPR EHENS ERIN METAB OLIC PANEL carbon dioxide 27 mmol/ L 22-30 Not Available [facility] (Lab) [address] [place], [address], 11/12/2023 13:37:00 11/12/19 24 11/12/2023 COMPR EHENS ERIN METAB OLIC PANEL anion gap 7.4 mmol/ L 14-22 low Not Available [facility] (Lab) [address] [place], [address], 11/12/2023 13:37:00 11/12/19 24 11/12/2023 COMPR EHENS ERIN METAB OLIC PANEL glucose 95 mg/dL 70-99 Not Available [facility] (Lab) [address] [place], [address], 11/12/2023 13:37:00 11/12/19 24 11/12/2023 COMPR EHENS ERIN METAB OLIC PANEL BUN 20 mg/dL 8-19 high Not Available [facility] (Lab) [address] [place], [address], 11/12/2023 13:37:00 11/12/19 24 11/12/2023 COMPR EHENS ERIN METAB OLIC PANEL creatinine 0.98 mg/dL 0.66-1 .25 Not Available [facility] (Lab) [address] [place], [address], 11/12/2023 13:37:00 11/12/19 24 11/12/2023 COMPR EHENS ERIN METAB OLIC PANEL GFR 56 Refer ence Range : [place] ge GFR Healt hy Adult : >60 [...] or ethni c subgr oups, such as wa nics. Outsi de the valid ated sheridan [...] calcu lator is avail able on the [facility] websi te: https ://minnie hill.o rg/pr ofess ional s/kdo qi/gf r_cal culat or Not Available [facility] (Lab) [address] [place], [address], 11/12/2023 13:37:00 11/12/19 24 11/12/2023 COMPR EHENS ERIN METAB OLIC PANEL alkaline phosphatase 66 U/L 38-126 Not Available [facility] (Lab) [address] [place], [address], 11/12/2023 13:37:00 11/12/19 24 11/12/2023 COMPR EHENS ERIN METAB OLIC PANEL alanine aminotransfe rase 14 U/L 0-35 Not Available [facility] (Lab) [address] [place] [place], [address], 11/12/2023 13:37:00 11/12/19 24 11/12/2023 COMPR EHENS ERIN METAB OLIC PANEL aspartate aminotransfe rase 23 U/L 15-37 Not Available [facility] (Lab) [address] [place], [address], 11/12/2023 13:37:00 11/12/19 24 11/12/2023 COMPR EHENS ERIN METAB OLIC PANEL bilirubin, total 0.20 mg/dL 0.20-1 .30 Not Available [facility] (Lab) [address] [place], [address], 11/12/2023 13:37:00 11/12/19 24 11/12/2023 COMPR EHENS ERIN METAB OLIC PANEL calcium 9.7 mg/dL 8.4-10 .2 Not Available [facility] (Lab) [address] [place], [address], 11/12/2023 13:37:00 11/12/19 24 11/12/2023 COMPR EHENS ERIN METAB OLIC PANEL total protein 7.2 g/dL 6.3-8. 2 Not Available [facility] (Lab) [address] [place], [address], 11/12/2023 13:37:00 11/12/19 24 11/12/2023 COMPR EHENS ERIN METAB OLIC PANEL albumin 4.4 g/dL 3.0-4. 4 Not Available [facility] (Lab) [address] [place], [address], 11/12/2023 13:37:00 11/12/19 24 11/12/2023 COMPR EHENS ERIN METAB OLIC PANEL globulin 2.8 g/dL 2.6-4. 2 Not Available [facility] (Lab) [address] [place], [address], 11/12/2023 13:37:00 11/12/19 24 11/12/2023 COMPR EHENS ERIN METAB OLIC PANEL A/G ratio 1.6 ratio 1.0-2. 0 Not Available [facility] (Lab) [address] [place], [address], 11/12/2023 13:37:00 11/12/19 24 11/12/2023 TSH thyroid-stim ulating hormone 0.746 uIU/m L 0.465- 4.680 Not Available [facility] (Lab) [address] [place], [address], 11/12/2023 13:46:57 11/12/19 24 11/12/2023 T4 FREE free T4 0.94 NG/dL 0.78-2 .19 Not Available [facility] (Lab) [address] [place], [address], 11/12/2023 13:47:11 11/12/19 24 11/12/2023 T3 FREE free T3 3.9 pg/mL 2.77-5 .27 Not Available [facility] (Lab) [address] [place], [address], 11/12/2023 13:47:15 11/23/19 24 11/23/2023 COVID -19, [...] ders and patie nts at the [facility] jabier: https ://ww w.[employer] .gov/ media /3604 12/do wnloa d https ://Avtozaper.[employer] .gov/ media /5321 13/do wnloa d Juana moya y: Real- Time RT-PC R Not Available [facility] (Lab) [address] [place], [address], 11/23/2023 14:59:15 11/23/19 24 11/23/2023 COVID -19, INFLU HANNAH A+B, PCR influenza A RNA, RT-PCR NEGATI VE Not Available [facility] (Lab) [address] [place], [address], 11/23/2023 14:59:15 11/23/19 24 11/23/2023 COVID -19, INFLU HANNAH A+B, PCR influenza B RNA, RT-PCR NEGATI VE Not Available [facility] (Lab) [address] [place], [address], 11/23/2023 14:59:15 12/28/19 24 12/28/2023 COVID -19, INFLU HANNAH A+B, PCR sars-cov-2 [...] ders and patie nts at the [facility] jabier: https ://ww w.[employer] .gov/ media /1363 12/do wnloa d https ://[employer] w.fda .gov/ media /1363 13/do wnloa d Metho griffin y: Real- Time RT-PC R Not Available [facility] (Lab) [address] [place], [address], 12/28/2023 16:25:11 12/28/19 24 12/28/2023 COVID -19, INFLU HANNAH A+B, PCR influenza A RNA, RT-PCR NEGATI VE Not Available [facility] (Lab) [address] [place], [address], 12/28/2023 16:25:11 12/28/19 24 12/28/2023 COVID -19, INFLU HANNAH A+B, PCR influenza B RNA, RT-PCR NEGATI VE abnormal Not Available [facility] (Lab) [address] [place], [address], 12/28/2023 16:25:11 05/07/19 25 05/07/2024 LIPID PANEL , STAND CHRISTINA cholesterol, total 221 mg/dL <200 high Not Available [facility] [address] [place], [address], 05/07/2024 12:42:54 05/07/19 25 05/07/2024 LIPID PANEL , STAND CHRISTINA HDL cholesterol 60 mg/dL > or = 50 normal Not Available [facility] [address] [place], [address], 05/07/2024 12:42:54 05/07/1905/07/2024 LIPID PANEL , STAND CHRISTINA triglyceride s 116 mg/dL <150 normal Not Available [facility] [address] [address] [place], [address], 05/07/2024 12:42:54 05/07/19 25 05/07/2024 LIPID PANEL [...] calcu lated using the Nargis n-Hop kins jonesu jesus n, which is a valid ated novel juana wilcoxte r accur acy than the Fried corona equat ion in the estim ation of LDL-C . Nargis salazar SS et al. PING. 2013; 310(1 9): 2061- 2068 (http ://ed ucati on.[employer]. [place]/f aq/FA Q164) Not Available [facility] [address], [place], [address], 05/07/2024 12:42:54 05/07/1905/07/2024 LIPID PANEL , STAND CHRISTINA chol/HDLC ratio 3.7 (calc ) <5.0 normal Not Available [facility] [address] [place], [address], 05/07/2024 12:42:54 05/07/1905/07/2024 LIPID PANEL , STAND CHRISTINA non HDL cholesterol 161 mg/dL _(maria eugenia c) <130 high For patie nts with diabe jabier plus 1 major ASCVD risk facto r, treat ing to a non-H DL-C goal of <100 mg/dL (LDL- C of <70 mg/dL ) is kunali deborah lopez optio n. Not Available [address], [address], 05/07/2024 12:42:54 05/07/19 25 05/07/2024 COMPR EHENS ERIN METAB OLIC PANEL glucose 90 mg/dL 65-99 normal Fasti ng refer ence inter tomeka Not Available [address], [address], 05/07/2024 12:42:56 05/07/19 25 05/07/2024 COMPR EHENS ERIN METAB OLIC PANEL urea nitrogen (BUN) 16 mg/dL 7-25 normal Not Available [address], [address], 05/07/2024 12:42:56 05/07/19 25 05/07/2024 COMPR EHENS ERIN METAB OLIC PANEL creatinine 1.03 mg/dL 0.50-1 .05 normal Not Available [address], [address], 05/07/2024 12:42:56 05/07/19 25 05/07/2024 COMPR EHENS ERIN METAB OLIC PANEL eGFR 59 mL/mi n/1.7 3m2 > or = 60 low Not Available [address], [address], 05/07/2024 12:42:56 05/07/19 25 05/07/2024 COMPR EHENS ERIN METAB OLIC PANEL BUN/creatini ne ratio SEE NOTE: (calc ) 6-22 Not Repor west: BUN and Creat inine are withi n refer ence range . Not Available [address], [address], 05/07/2024 12:42:56 05/07/19 25 05/07/2024 COMPR EHENS ERIN METAB OLIC PANEL sodium 137 mmol/ L 135-14 6 normal Not Available [address], [address], 05/07/2024 12:42:56 05/07/19 25 05/07/2024 COMPR EHENS ERIN METAB OLIC PANEL potassium 4.1 mmol/ L 3.5-5. 3 normal Not Available [address], [address], 05/07/2024 12:42:56 05/07/19 25 05/07/2024 COMPR EHENS ERIN METAB OLIC PANEL chloride 102 mmol/ L 98-110 normal Not Available [address], [address], 05/07/2024 12:42:56 05/07/19 25 05/07/2024 COMPR EHENS ERIN METAB OLIC PANEL carbon dioxide 29 mmol/ L 20-32 normal Not Available [address], [address], 05/07/2024 12:42:56 05/07/19 25 05/07/2024 COMPR EHENS ERIN METAB OLIC PANEL calcium 9.8 mg/dL 8.6-10 .4 normal Not Available [address], [address], 05/07/2024 12:42:56 05/07/19 25 05/07/2024 COMPR EHENS ERIN METAB OLIC PANEL protein, total 6.7 g/dL 6.1-8. 1 normal Not Available [address], [address], 05/07/2024 12:42:56 05/07/19 25 05/07/2024 COMPR EHENS ERIN METAB OLIC PANEL albumin 4.3 g/dL 3.6-5. 1 normal Not Available [address], [address], 05/07/2024 12:42:56 05/07/19 25 05/07/2024 COMPR EHENS ERIN METAB OLIC PANEL globulin 2.4 g/dL_ (calc ) 1.9-3. 7 normal Not Available [address], [address], 05/07/2024 12:42:56 05/07/19 25 05/07/2024 COMPR EHENS ERIN METAB OLIC PANEL albumin/glob ulin ratio 1.8 (calc ) 1.0-2. 5 normal Not Available [address], [address], 05/07/2024 12:42:56 05/07/19 25 05/07/2024 COMPR EHENS ERIN METAB OLIC PANEL bilirubin, total 0.4 mg/dL 0.2-1. 2 normal Not Available [address], [address], 05/07/2024 12:42:56 05/07/19 25 05/07/2024 COMPR EHENS ERIN METAB OLIC PANEL alkaline phosphatase 46 U/L 37-153 normal Not Available [address], [address], 05/07/2024 12:42:56 05/07/19 25 05/07/2024 COMPR EHENS ERIN METAB OLIC PANEL AST 15 U/L 10-35 normal Not Available [address], [address], 05/07/2024 12:42:56 05/07/19 25 05/07/2024 COMPR EHENS ERIN METAB OLIC PANEL ALT 12 U/L 6-29 normal Not Available [address], [address], 05/07/2024 12:42:56 05/07/19 25 05/07/2024 CBC (INCL UDES DIFF/ PLT) white blood cell count 5.5 thous and/u L 3.8-10 .8 normal Not Available [address], [address], 05/07/2024 12:42:57 05/07/19 25 05/07/2024 CBC (INCL UDES DIFF/ PLT) red blood cell count 3.77 kam on/uL 3.80-5 .10 low Not Available [address], [address], 05/07/2024 12:42:57 05/07/19 25 05/07/2024 CBC (INCL UDES DIFF/ PLT) hemoglobin 11.8 g/dL 11.7-1 5.5 normal Not Available [address], [address], 05/07/2024 12:42:57 05/07/19 25 05/07/2024 CBC (INCL UDES DIFF/ PLT) hematocrit 36.1 % 35.0-4 5.0 normal Not Available [address], [address], 05/07/2024 12:42:57 05/07/19 25 05/07/2024 CBC (INCL UDES DIFF/ PLT) MCV 95.8 fL 80.0-1 00.0 normal Not Available [address], [address], 05/07/2024 12:42:57 05/07/19 25 05/07/2024 CBC (INCL UDES DIFF/ PLT) MCH 31.3 pg 27.0-3 3.0 normal Not Available [address], [address], 05/07/2024 12:42:57 05/07/1905/07/2024 CBC (INCL UDES DIFF/ PLT) MCHC 32.7 g/dL 32.0-3 6.0 normal For adult s, a sligh t decre ase in the calcu lated MCHC value (in the range of 30 to 32 g/dL) is most likel y not clini geena short t; trudy er, it shoul d be inter prete d with cauti on in [facility] n with other red cell sheridan eters and the patie nt's clini maria eugenia condi tion. Not Available [address], [address], 05/07/2024 12:42:57 05/07/19 25 05/07/2024 CBC (INCL UDES DIFF/ PLT) RDW 12.1 % 11.0-1 5.0 normal Not Available [facility] [address], [address], 05/07/2024 12:42:57 05/07/19 25 05/07/2024 CBC (INCL UDES DIFF/ PLT) platelet count 296 thous and/u L 140-40 0 normal Not Available [facility] [address], [address], 05/07/2024 12:42:57 05/07/19 25 05/07/2024 CBC (INCL UDES DIFF/ PLT) MPV 10.4 fL 7.5-12 .5 normal Not Available [address], [address], 05/07/2024 12:42:57 05/07/19 25 05/07/2024 CBC (INCL UDES DIFF/ PLT) absolute neutrophils 2008 cells /uL 1500-7 800 normal Not Available [facility] [address], [address], 05/07/2024 12:42:57 05/07/19 25 05/07/2024 CBC (INCL UDES DIFF/ PLT) absolute lymphocytes 2728 cells /uL 850-39 00 normal Not Available [facility] [address], [address], 05/07/2024 12:42:57 05/07/19 25 05/07/2024 CBC (INCL UDES DIFF/ PLT) absolute monocytes 435 cells /uL 200-95 0 normal Not Available [address], [address], 05/07/2024 12:42:57 05/07/19 25 05/07/2024 CBC (INCL UDES DIFF/ PLT) absolute eosinophils 281 cells /uL 15-500 normal Not Available [address], [address], 05/07/2024 12:42:57 05/07/19 25 05/07/2024 CBC (INCL UDES DIFF/ PLT) absolute basophils 50 cells /uL 0-200 normal Not Available [address], [address], 05/07/2024 12:42:57 05/07/19 25 05/07/2024 CBC (INCL UDES DIFF/ PLT) neutrophils 36.5 % normal Not Available [facility] [address], [address], 05/07/2024 12:42:57 05/07/19 25 05/07/2024 CBC (INCL UDES DIFF/ PLT) lymphocytes 49.6 % normal Not Available [address], [address], 05/07/2024 12:42:57 05/07/19 25 05/07/2024 CBC (INCL UDES DIFF/ PLT) monocytes 7.9 % normal Not Available [facility] [address], [address], 05/07/2024 12:42:57 05/07/19 25 05/07/2024 CBC (INCL UDES DIFF/ PLT) eosinophils 5.1 % normal Not Available [facility] [address], [address], 05/07/2024 12:42:57 05/07/19 25 05/07/2024 CBC (INCL UDES DIFF/ PLT) basophils 0.9 % normal Not Available [address], [address], 05/07/2024 12:42:57 05/07/1905/07/2024 T4, FREE T4, free 1.2 NG/dL 0.8-1. 8 normal Not Available [address], [address], 05/07/2024 12:42:58 05/07/1905/07/2024 TSH TSH 0.44 mIU/L 0.40-4 .[address] to have a [employer] copy faxed has been denzel wledg ed. Queue d to: [phone] Queue d to: [phone] Not Available [address], [address], 05/07/2024 12:42:59 09/05/19 25 09/05/2024 LIPID PANEL , STAND CHRISTINA cholesterol, total 228 mg/dL <200 high Not Available [address], [address], 09/05/2024 08:39:52 09/05/19 25 09/05/2024 LIPID PANEL , STAND CHRISTINA HDL cholesterol 71 mg/dL > or = 50 normal Not Available [address], [address], 09/05/2024 08:39:52 09/05/19 25 09/05/2024 LIPID PANEL , STAND CHRISTINA triglyceride s 121 mg/dL <150 normal Not Available [address], [address], 09/05/2024 08:39:52 09/05/19 25 09/05/2024 LIPID PANEL , STAND CHRISTINA LDL-choleste rol 134 mg/dL _(maria eugenia c) high Refer ence range : <100 Nini able range <100 mg/dL for prima ry preve ntion ; <70 mg/dL for patie nts with CHD or diabe tic patie nts with > or = 2 CHD risk facto rs. LDL-C is now calcu lated using the Nargis n-Hop kins calcu bautistabebeto n, which is a valid ated novel metho d provi ding kayleen r accur acy than the Fried corona equat ion in the estim ation of LDL-C . Nargis salazar SS et al. PING. 2013; 310(1 9): 2061- 2068 (http ://ed ucati on.[employer]. com/f aq/FA Q164) Not Available [facility] [address] [address] [place], [address], 09/05/2024 08:39:52 09/05/1909/05/2024 LIPID PANEL , STAND CHRISTINA chol/HDLC ratio 3.2 (calc ) <5.0 normal Not Available [facility] [address] [address] [place], [address], 09/05/2024 08:39:52 09/05/1909/05/2024 LIPID PANEL , STAND CHRISTINA non HDL cholesterol 157 mg/dL _(maria eugenia c) <130 high For patie nts with diabe jabier plus 1 major ASCVD risk facto r, treat ing to a non-H DL-C goal of <100 mg/dL (LDL- C of <70 mg/dL ) is consi cherelled a stefania olivarez c optio n. Not Available [facility] [address] [place], [address], 09/05/2024 08:39:52 09/05/1909/05/2024 MAGNE SIUM magnesium 2.3 mg/dL 1.5-2. 5 normal Not Available [facility] [address] [address] [address], [place], [address], 09/05/2024 08:39:53 07/07/20 25 09/05/2024 COMPR EHENS ERIN METAB OLIC PANEL glucose 81 mg/dL 65-99 normal Fasti ng refer ence inter tomeka Not Available [address], [address], 09/05/2024 08:39:54 09/05/19 25 09/05/2024 COMPR EHENS ERIN METAB OLIC PANEL urea nitrogen (BUN) 21 mg/dL 7-25 normal Not Available [address], [address], 09/05/2024 08:39:54 09/05/19 25 09/05/2024 COMPR EHENS ERIN METAB OLIC PANEL creatinine 0.99 mg/dL 0.50-1 .05 normal Not Available [address], [address], 09/05/2024 08:39:54 09/05/19 25 09/05/2024 COMPR EHENS ERIN METAB OLIC PANEL eGFR 62 mL/mi n/1.7 3m2 > or = 60 normal Not Available [address], [address], 09/05/2024 08:39:54 09/05/1909/05/2024 COMPR EHENS ERIN METAB OLIC PANEL BUN/creatini ne ratio SEE NOTE: (calc ) 6-22 Not Repor west: BUN and Creat inine are withi n refer ence range . Not Available [address], [address], 09/05/2024 08:39:54 09/05/19 25 09/05/2024 COMPR EHENS ERIN METAB OLIC PANEL sodium 139 mmol/ L 135-14 6 normal Not Available [address], [address], 09/05/2024 08:39:54 09/05/19 25 09/05/2024 COMPR EHENS ERIN METAB OLIC PANEL potassium 4.9 mmol/ L 3.5-5. 3 normal Not Available [address], [address], 09/05/2024 08:39:54 09/05/1909/05/2024 COMPR EHENS ERIN METAB OLIC PANEL chloride 105 mmol/ L 98-110 normal Not Available [address], [address], 09/05/2024 08:39:54 09/05/1909/05/2024 COMPR EHENS ERIN METAB OLIC PANEL carbon dioxide 27 mmol/ L 20-32 normal Not Available [address], [address], 09/05/2024 08:39:54 09/05/1909/05/2024 COMPR EHENS ERIN METAB OLIC PANEL calcium 9.7 mg/dL 8.6-10 .4 normal Not Available [address], [address], 09/05/2024 08:39:54 09/05/1909/05/2024 COMPR EHENS ERIN METAB OLIC PANEL protein, total 6.7 g/dL 6.1-8. 1 normal Not Available [address], [address], 09/05/2024 08:39:54 09/05/1909/05/2024 COMPR EHENS ERIN METAB OLIC PANEL albumin 4.2 g/dL 3.6-5. 1 normal Not Available [address], [address], 09/05/2024 08:39:54 09/05/1909/05/2024 COMPR EHENS ERIN METAB OLIC PANEL globulin 2.5 g/dL_ (calc ) 1.9-3. 7 normal Not Available [address], [address], 09/05/2024 08:39:54 09/05/19 25 09/05/2024 COMPR EHENS ERIN METAB OLIC PANEL albumin/glob ulin ratio 1.7 (calc ) 1.0-2. 5 normal Not Available [address], [address], 09/05/2024 08:39:54 09/05/1909/05/2024 COMPR EHENS ERIN METAB OLIC PANEL bilirubin, total 0.2 mg/dL 0.2-1. 2 normal Not Available [address], [address], 09/05/2024 08:39:54 09/05/19 25 09/05/2024 COMPR EHENS ERIN METAB OLIC PANEL alkaline phosphatase 65 U/L 37-153 normal Not Available [address], [address], 09/05/2024 08:39:54 09/05/1909/05/2024 COMPR EHENS ERIN METAB OLIC PANEL AST 15 U/L 10-35 normal Not Available [address], [address], 09/05/2024 08:39:54 09/05/19 25 09/05/2024 COMPR EHENS ERIN METAB OLIC PANEL ALT 10 U/L 6-29 normal Not Available [address], [address], 09/05/2024 08:39:54 09/05/19 25 09/05/2024 CBC (INCL UDES DIFF/ PLT) white blood cell count 4.8 thous and/u L 3.8-10 .8 normal Not Available [address], [address], 09/05/2024 08:39:56 09/05/19 25 09/05/2024 CBC (INCL UDES DIFF/ PLT) red blood cell count 3.67 kam on/uL 3.80-5 .10 low Not Available [address], [address], 09/05/2024 08:39:56 09/05/1909/05/2024 CBC (INCL UDES DIFF/ PLT) hemoglobin 11.3 g/dL 11.7-1 5.5 low Not Available [facility] [address], [address], 09/05/2024 08:39:56 09/05/1909/05/2024 CBC (INCL UDES DIFF/ PLT) hematocrit 36.6 % 35.0-4 5.0 normal Not Available [address], [address], 09/05/2024 08:39:56 09/05/1909/05/2024 CBC (INCL UDES DIFF/ PLT) MCV 99.7 fL 80.0-1 00.0 normal Not Available [address], [address], 09/05/2024 08:39:56 09/05/1909/05/2024 CBC (INCL UDES DIFF/ PLT) MCH 30.8 pg 27.0-3 3.0 normal Not Available [address], [address], 09/05/2024 08:39:56 09/05/1909/05/2024 CBC (INCL UDES DIFF/ PLT) MCHC 30.9 g/dL 32.0-3 6.0 low For adult s, a sligh t decre ase in the calcu lated MCHC value (in the range of 30 to 32 g/dL) is most likel y not clini geena signi deja t; trudy er, it shoul d be inter prete d with cauti on in corre latio n with other red cell sheridan eters and the patie nt's clini maria eugenia condi tion. Not Available [address], [address], 09/05/2024 08:39:56 09/05/1909/05/2024 CBC (INCL UDES DIFF/ PLT) RDW 12.5 % 11.0-1 5.0 normal Not Available [address], [address], 09/05/2024 08:39:56 09/05/19 25 09/05/2024 CBC (INCL UDES DIFF/ PLT) platelet count 257 thous and/u L 140-40 0 normal Not Available [address], [address], 09/05/2024 08:39:56 09/05/19 25 09/05/2024 CBC (INCL UDES DIFF/ PLT) MPV 10.1 fL 7.5-12 .5 normal Not Available [address], [address], 09/05/2024 08:39:56 09/05/19 25 09/05/2024 CBC (INCL UDES DIFF/ PLT) absolute neutrophils 1622 cells /uL 1500-7 800 normal Not Available [address], [address], 09/05/2024 08:39:56 09/05/1909/05/2024 CBC (INCL UDES DIFF/ PLT) absolute lymphocytes 2371 cells /uL 850-39 00 normal Not Available [address], [address], 09/05/2024 08:39:56 09/05/1909/05/2024 CBC (INCL UDES DIFF/ PLT) absolute monocytes 442 cells /uL 200-95 0 normal Not Available [address], [address], 09/05/2024 08:39:56 09/05/19 25 09/05/2024 CBC (INCL UDES DIFF/ PLT) absolute eosinophils 293 cells /uL 15-500 normal Not Available [address], [address], 09/05/2024 08:39:56 09/05/1909/05/2024 CBC (INCL UDES DIFF/ PLT) absolute basophils 72 cells /uL 0-200 normal Not Available [address], [address], 09/05/2024 08:39:56 09/05/19 25 09/05/2024 CBC (INCL UDES DIFF/ PLT) neutrophils 33.8 % normal Not Available [address], [address], 09/05/2024 08:39:56 09/05/1909/05/2024 CBC (INCL UDES DIFF/ PLT) lymphocytes 49.4 % normal Not Available [facility] [address], [address], 09/05/2024 08:39:56 09/05/1909/05/2024 CBC (INCL UDES DIFF/ PLT) monocytes 9.2 % normal Not Available [address], [address], 09/05/2024 08:39:56 09/05/1909/05/2024 CBC (INCL UDES DIFF/ PLT) eosinophils 6.1 % normal Not Available [facility] [address], [address], 09/05/2024 08:39:56 09/05/1909/05/2024 CBC (INCL UDES DIFF/ PLT) basophils 1.5 % normal Not Available [address], [address], 09/05/2024 08:39:56 09/05/19 25 09/05/2024 T4, FREE T4, free 1.0 NG/dL 0.8-1. 8 normal Not Available [facility] [address] [place], [address], 09/05/2024 08:39:57 09/05/19 25 09/05/2024 TSH TSH 0.44 mIU/L 0.40-4 .50 normal Not Available [facility] [address] [place], [address], 09/05/2024 08:39:58 09/23/19 24 09/22/2023 US, lower leg No observ ation record ed. [address] [facility] [address], [place], [address], 09/23/2023 16:33:39 12/02/19 24 12/02/2023 US, carot id arter y No observ ation record ed. [address] [facility] [address], [place], [address], 12/03/2023 07:57:20 01/09/20 24 01/07/2024 CT, chest , w/o contr ast No observ ation record ed. [address] [address], [place], [address], 01/09/2024 15:34:51 03/09/19 25 03/09/2024 nerve condu ction study /EMG, upper extre mity (PROC ) No observ ation record ed. [address] [address], [place], [address], 03/09/2024 21:26:59 07/02/19 25 06/29/2024 US, thyro id No observ ation record ed. [address] [address], [place], [address], 07/01/2024 12:26:26 Result Notes None recorded. Problems Name Problem SNOMED Code Status Onset Date Resolution Date Notes Provider Name and Address Organization Details Recorded Time Chronic pain 94544372 Active 2022 Not Available [facility] 3 05:34:02 Musculoske letal chest pain 883634578 Active 2022 Not Available [facility] 3 05:34:02 Fatigue 50457345 Active 2022 Not Available [facility] 3 05:34:02 Anemia 388607507 Active 2022 Not Available [facility] 3 05:34:02 Pain of left shoulder joint 2832338726276 9109 Active 2022 Lupe De Oliveira RMA null, [facility] 3 14:43:11 Complicati on after wiring of sternum 837481512 Active 2022 Dee Rivera CMA null, [facility] 3 15:03:03 Acute pharyngiti s 366275350 Active 2023 Richie Laird MD [address], [address], [place], [address] , [facility] 4 15:49:23 Dystrophia unguium 64025720 Active 2023 Sohail Harrison DPM [address], [address], [place], [address] , [facility] 4 15:38:57 Ingrowing nail of toe of left foot 5914827129675 9107 Active 2023 Sohail Harrison DPM [address], [address], [place], [address] , [facility] 4 15:39:03 Cough 82848174 Active 2023 Dee Rivera CMA null, [facility] 4 11:17:21 Pain of right upper arm 9019336046352 03 Active 2023 Richie Laird MD [address], [address], [place], [address] , [facility] 4 15:41:15 Fever 364841530 Active 2023 Dee Rivera CMA null, [place] - [place] [facility] 4 12:41:07 COVID-19 488307485 Active 2023 Richie Laird MD [address], [facility] [address], [place], [address] , [facility] 4 17:12:13 Neurogenic thoracic outlet syndrome 2793421 Active 2023 Sujatha Gregory null, [place] - [facility] 4 16:56:26 Ventricula r tachycardi a 08389258 Active 2024 Richie Laird MD [address], [facility] [address], [place], [address] , [facility] 5 16:21:22 Pain of right wrist 9562889209527 00 Active 2024 Dee Rivera CMA null, [place] [facility] 5 17:08:43 Pain of elbow region 69020764 Active 2024 Dee Rivera CMA null, [place] [facility] 5 17:09:01 Pain of knee region 5871913068 Active 2024 Dee Rivera CMA null, [place] [facility] 5 17:09:17 Irritable bowel syndrome 20918961 Active Not Available [facility] 3 05:34:02 Hyperchole sterolemia 18927505 Active Not Available [facility] 3 05:34:02 Anxiety disorder 009399257 Active Not Available [facility] 3 05:34:02 Gastroesop hageal reflux disease 773842266 Active Not Available [facility] 3 05:34:02 Gallstone 963268847 Active Not Available [facility] 3 05:34:02 Left carotid artery stenosis 4650244296556 03 Active Not Available [facility] 3 05:34:02 Adhesive capsulitis of left shoulder 6156478244735 07 Active 2021 Not Available [facility] 3 05:34:02 Vitamin D deficiency 97585794 Active 2021 Not Available [facility] 3 05:34:02 Chronic pain syndrome 733648409 Active 2019 Not Available [facility] 3 05:34:02 Paronychia of toe 341202332 Active 2019 Not Available [facility] 3 05:34:02 Peripheral vascular disease 774542271 Active Not Available [facility] 3 05:34:02 Ingrowing toenail 514381713 Active 2020 Not Available [facility] 3 05:34:02 Central pain syndrome 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 Active 2019 Not Available [facility] 3 05:34:02 Long-term current use of opiate analgesic drug 5226098981755 08 Active 2021 Not Available [facility] 3 05:34:02 Coronary arterioscl erosis 64609429 Active Not Available [facility] 3 05:34:02 Carpal tunnel syndrome 16662160 Active Not Available [facility] 3 05:34:02 Essential hypertensi on 51904914 Active Not Available [facility] 3 05:34:02 Disorder of coccyx 74922246 Active Not Available [facility] 3 05:34:02 Osteoporos is 27689944 Active 2018 Not Available [facility] 3 05:34:02 Pain in limb 57917537 Active Not Available [facility] 3 05:34:02 Closed fracture of cuboid bone of foot 0922622 Active Not Available [facility] 3 05:34:02 Notes:heart bypass Problem Notes None recorded. Procedures Surgical History Date Name Laterality Status Provider Name and Address Organization Details Recorded Time 09/09/19 24 Nail Debridement completed Sohail Harrison DPM [address] [facility], [facility] [address], [place], [address], [place] [facility] [employer] [facility] 09/29/2023 15:40:34 04/07/19 24 Medicare Wellness CPT Code, subsequent completed Shawnee Mcfarlane RN [facility] 04/07/2023 16:03:20 04/07/19 24 Advanced Care Planning completed Shawnee Mcfarlane RN [facility] 04/07/2023 16:06:37 11/28/19 22 Date of Last Colonoscopy completed Not Available [facility] 04/29/2022 04:41:53 03/14/19 20 Most Recent Bone Density completed Not Available [facility] 04/29/2022 04:41:53 01/03/20 14 Colonoscopy w/snare completed Not Available [facility] 04/29/2022 04:41:57 Imaging Results None recorded. Procedure Notes None recorded. Medical Equipment None Reported. Allergies Allergen ID Allergen Name Allergen Category Reaction Reaction Severity Criticality Documentation Date Start Date Code Code System Note Provider Name and Address Organization Details Recorded Time 737 Lipitor medicatio n myalgias (muscle pain) Not available Not available 04/29/2022 [address]89[address] 5 RxNorm Not Available [facility] 05:00:34 Medications Name Sig Start Date Stop [...] 1 TABLET BY MOUTH THREE TIMES DAILY FOR ANXIETY active Not Available Not Available No t Available benzonata te 200 mg capsule TAKE 1 CAPSULE BY MOUTH THREE TIMES DAILY 12/21 completed Not Available Not Available Not Available metoprolo l succinate ER 50 mg tablet,ex tended release 24 hr TAKE 1 TABLET BY MOUTH ONCE DAILY 08/14 completed Not Available Not Available Not Available hydrocodo ne 5 mg-acetam inophen 325 mg tablet TAKE 1 TABLET BY MOUTH 4 TIMES DAILY active Not Available Not Available [...] TAKE 1 TABLET BY MOUTH ONCE DAILY 08/21 completed Not Available Not Available Not Available aspirin 81 mg tablet,de layed release Take 1 tablet every day by oral route. 08/21 completed Not Available Not Available Not Available tramadol 50 mg tablet 12/03 completed Not Available Not Available Not Available alprazola m 0.5 mg tablet TAKE 1 TABLET BY MOUTH THREE TIMES DAILY NEEDED 04/07 completed Not Available Not Available Not Available amoxicill in 875 mg tablet Take 1 tablet every 12 hours by oral route. 2019 active Not Available Not Available Not Avai lable prednisol one acetate 1 % eye drops,[facility] 06/10 completed Not Available Not Available Not Available magnesium oxide 400 mg (241.3 mg magnesium ) tablet TAKE 1 TABLET BY MOUTH TWICE DAILY active Not Available Not Available No t Available Fosamax 70 mg tablet Take 1 tablet every week by oral route. 12/19 completed Not Available Not Available Not Available Celexa 20 mg tablet Take 1 tablet every day by oral route. 2012 active Not Available Not Available Not Avai lable Kenalog 10 mg/mL suspensio n for injection In office injectio n administ ered by the provider 08/19 completed ND: [id number] 4-20 Not Available Not Available Not Available amlodipin e 10 mg tablet TAKE 1 TABLET BY MOUTH ONCE DAILY active Not Available Not Available No t Available doxycycli ne monohydra te 100 mg [...] Not Available Not Available No t Available [place] 7.5 mg-325 mg tablet one four times a day for lumbar radiculo sara 08/06 completed Drug Categori es: Benzodia zepines Opioids Stimulan ts Other Last Name First Name Date of Date Filled Label Name Strength Metric Quantity Days Supply Payment Method Pharmacy Name/ City Prescrib er Name [facility] 6 0 ALPRAZOL AM 1MG 90 30 [facility] [id number]/ RICHIE KELSEY MD [place] 6 07/03/2019 HYDROCOD ON-ACETA MINOPHEN 5MG-325M G 120 30 [facility] RICHIE LAIRD MD [place] 6 0 ALPRAZOL AM 1MG 90 30 [facility] [id number]/ RICHIE KELSEY MD [place] 6 06/02/2019 HYDROCOD ON-ACETA MINOPHEN 5MG-325M G 120 30 [facility] RICHIE LAIRD MD [place] 6 0 ALPRAZOL AM 1MG 90 30 [email or web address]/ [place] RICHIE LAIRD MD [place] 6 05/03/2019 HYDROCOD ON-ACETA MINOPHEN 5MG-325M G 120 30 [facility] RICHIE LAIRD MD [place] 6 0 ALPRAZOL AM 1MG 90 30 [facility]/ [place] RICHIE LAIRD MD [place] 6 04/03/2019 HYDROCOD ON-ACETA MINOPHEN 5MG-325M G 120 30 [facility] RICHIE LAIRD MD [place] 6 0 HYDROCOD ONE BITARTRA TE-ACETA MINOPHE 7.5MG-32 5MG 21 7 [facility] Not Available Not Available Not Available methylpre [...] BY MOUTH ONCE DAILY WITH ATORVAST ATIN 08/21 completed Not Available Not Available Not Available Restasis 0.05 % eye drops in a dropperet te USE 1 DROP IN BOTH EYES TWICE DAILY 09/08 completed Not Available Not Available Not Available rosuvasta tin 5 mg tablet TAKE 1 TABLET BY MOUTH ONCE DAILY active Not Available Not Available No t Available rosuvasta tin 40 mg tablet TAKE [...] administ ered by the provider 08/19 completed [facility]: 0409-427 08-15 Not Available Not Available Not Available Prolia 60 mg/mL subcutane ous syringe active Not Available Not Available Not Available Prolia 06/10 completed Not Available Not Available Not Available Eliquis 5 mg tablet TAKE 1 TABLET BY MOUTH TWICE DAILY active Not Available Not Available No t Available aspirin 80 mg tablet Take by oral route. 12/19 completed Not Available Not Available Not Available Repatha Syringe 140 mg/mL subcutane ous syringe INJECT ONE SYRINGE SUB Q EVERY 2 WEEKS active Not Available Not Available No t Available Repatha SureClick 140 mg/mL subcutane ous pen injector INJECT 1 PEN SUBCUTAN EOUSLY ONCE EVERY 2 WEEKS 08/21 completed Not Available Not Available Not Available Repatha Pushtrone x 420 mg/3.5 mL subcutane ous wearable injector INFUSE 420 MG SUBCUTAN EOUSLY ONCE A MONTH 09/07 completed Not Available Not Available Not Available Shira Pushtrone x 06/10 completed Not Available Not [...] Leqvio 284 mg/1.5 mL subcutane ous syringe INJECT 1.5 MILLILIT ERS (284 MG) BY SUBCUTAN EOUS ROUTE EVERY 6 MONTHS IN THE ABDOMEN, THIGH, OR OUTER AREA OF UPPER ARM (ROTATE SITES) active Not Available Not Available No t Available Vitals Date Recorded Body height Body mass index (BMI) Body weight Heart rate Body temperature Oxygen saturation Oxygen saturation in Arterial blood by Pulse oximetry Systolic And Diastolic Provider Name and Address Organization Details Last Updated DateTime 5 161.29 cm 18.1 kg/m2 61063.6 1 g 59 /min 97 [degF] 95 % 95 % 132/60 mm[Hg] [employer] [facility] [email or web address] 5 15:10:44 Date Recorded Body height Body mass index (BMI) Body weight Heart rate Body temperature Oxygen saturation Oxygen saturation in Arterial blood by Pulse oximetry Systolic And Diastolic Provider Name and Address Organization Details Last Updated DateTime 5 161.29 cm 16.7 kg/m2 12421.8 7 g 84 /min 97 [degF] 96 % 96 % 148/80 mm[Hg] Kamila [employer] 5 16:16:03 Date Recorded Body height Heart rate Systolic And Diastolic Provider Name and Address Organization Details Last Updated DateTime 09/09/2023 162.56 cm 60 /min 156/98 mm[Hg] Nelia Coppola CNA [employer] [facility] [email or web address] 09/09/2023 14:47:56 Date Recorded Body height Body weight Heart rate Body temperature Respiratory rate Systolic And Diastolic Provider Name and Address Organization Details Last Updated DateTime 4 162.56 cm 84375.9 8 g 66 /min 97.9 [degF] 98 /min 124/80 mm[Hg] Lorraine LuRIVAS [facility] 4 15:05:44 Date Recorded Body height Body mass index (BMI) Body weight Heart rate Body temperature Oxygen saturation Oxygen saturation in Arterial blood by Pulse oximetry Systolic And Diastolic Provider Name and Address Organization Details Last Updated DateTime 4 162.56 cm 18.4 kg/m2 67969.3 8 g 87 /min 97 [degF] 98 % 98 % 124/74 mm[Hg] Lorraine Aly [facility] 4 15:28:41 Social History Question Answer Notes LastModified by Organization Details LastModified Time Tobacco Smoking Status Former Smoker Not Available [facility] 04/29/2022 04:12:41 Do You Have An Advance Directive? No Info Given [email or web address] Information not available 04/07/2023 Are You Blind Or Do You Have Difficulty Seeing? No MIGRATION.0301 [id number] Information not available 04/29/2022 What Is Your Level Of Caffeine Consumption? Occasional MIGRATION.0301 [id number] Information not available 04/29/2022 Are You Deaf Or Do You Have Serious Difficulty Hearing? No MIGRATION.0301 [id number] Information not available 04/29/2022 What Type Of Diet Are You Following? REGULAR MIGRATION.0301 [id number] Information not available 04/29/2022 Have There Been Any Changes To Your Family Or Social Situation? No MIGRATION.0301 [id number] Information not available 04/29/2022 What Is The Fluoride Status Of Your Home? Unknown MIGRATION.0301 [id number] Information not available 04/29/2022 Do You Use Insect Repellent Routinely? No MIGRATION.0301 [id number] Information not available 04/29/2022 Where Do You Live? [place] MIGRATION.0301 [id number] Information not available 04/29/2022 Are You Able To Care For Yourself? Yes [email or web address] Information not available 04/07/2023 Are You Blind Or Do Yo Have Difficulty Seeing? No Information not available 04/07/2023 Are You Deaf Or Do You Have Serious Difficulty Hearing? No [email or web address] Information not available 04/07/2023 Live Alone Of With Others? Alone [email or web address] Information not available 04/07/2023 What Was The Date Of Your Most Recent Tobacco Screening? 04/07/2023 [email or web address] Information not available 04/07/2023 Do You Have Any Pets? No MIGRATION.0301 [id number] Information not available 04/29/2022 What Is Your Relationship Status? Single MIGRATION.0301 [id number] Information not available 04/29/2022 Do You Use Your Seat Belt Or Car Seat Routinely? Yes MIGRATION.0301 628003 Information not available 04/29/2022 Do You Have Smoke And Carbon Monoxide Detectors In Your Home? Yes MIGRATION.0301 [id number] Information not available 04/29/2022 Are You Passively Exposed To Smoke? Yes MIGRATION.0301 146784 Information not available 04/29/2022 Do You Use Sunscreen Routinely? No MIGRATION.0301 [id number] Information not available 04/29/2022 Have You Recently Traveled Abroad? No MIGRATION.0301 996705 Information not available 04/29/2022 Do You Have Difficulty Walking Or Climbing Stairs? No MIGRATION.0301 [id number] Information not available 04/29/2022 Do You Have Any Dietary Restrictions? No MIGRATION.0301 816586 Information not available 04/29/2022 Sex: Female Functional Status Question Answer Note LastModified by Organizat ion Details LastModified Time What is your level of alcohol consumption? Occasional MIGRATION.[id number] 026 Information not available 04/29/2022 Do you have transportation difficulties? No MIGRATION.[id number] 026 Information not available 04/29/2022 Are you able to walk? YESWOREST MIGRATION.[id number] 026 Information not available 04/29/2022 Do you have difficulty doing errands alone? No MIGRATION.[id number] 026 Information not available 04/29/2022 Are you able to care for yourself? Yes [id number].[id number] 026 Information not available 04/29/2022 Do you have difficulty dressing or bathing? No MIGRATION.8711539 026 Information not available 04/29/2022 What is your exercise level? None MIGRATION.7980423 026 Information not available 04/29/2022 Mental Status Question Answer Note LastModified by Organizat ion Details LastModified Time Do you have difficulty concentrating, remembering or making decisions? No MIGRATION.[id number] 6 Information not available 04/29/2022 Family History Relationship Description Onset Age of this Age Resolved Age Notes LastModified by Organization Details LastModified Time Father Heart disease [id number].695 [id number] Not available 04/29/2022 04:41:59 Mother Heart disease MIGRATION.984 [id number] Not available 04/29/2022 04:41:59 Mother Family history of malignant neoplasm MIGRATION.289 [id number] Not available 04/29/2022 04:41:59 Mother Hypertensive disorder MIGRATION.912 [id number] Not available 04/29/2022 04:41:59 Mother Diabetes mellitus MIGRATION.024 [id number] Not available 04/29/2022 04:41:59 Notes:2021-04 Two Coronary [...] ARTERY DISEASE (CAD) Y ADDICTION CONCERNS N Impotence N ENDOMETRIOSIS N USE OF BLOOD THINNERS N SKIN [...] GLAUCOMA N FOOT PROBLEM N DIVERTICULITIS N SLEEP APNEA N CHICKENPOX N INFECTIOUS DISEASE N PROSTATE N HEART ARRHYTHMIA N INSOMNIA N HIGH CHOLESTEROL / HYPERLIPIDEMIA Y EYE PROBLEMS N HYPERTHYROIDISM N NEUROLOGICAL PROBLEMS Y EDEMA N CHRONIC PAIN SYNDROME Y HYPOTHYROIDISM N CONSTIPATION N CAROTID BLOCKAGE Y BACK / NECK PROBLEMS Y HAVE YOU BEEN HOSPITALIZED OR SEEN IN [facility] IN THE PAST YEAR ? N ATHEROSCLEROSIS N BREAST PROBLEMS N DIALYSIS N ECZEMA N OSTEOPOROSIS Y ARTHRITIS Y NO SIGNIFICANT PAST MEDICAL HISTORY N APPENDICITIS N DIABETES, TYPE N BAD TEETH N ENT N HEARTBURN / REFLUX N AUTISM SPECTRUM DISORDER (ASD) N HEPATITIS / LIVER DISEASE N GOUT N SLEEP DISORDER N ALZHEIMER'S DISEASE N Brain Problems N DEMENTIA N HERPES N SEIZURES/EPILEPSY N HEADACHES/MIGRAINES N VASCULAR DISEASE Y PACEMAKER N Blood Disorder N DIZZINESS N HEART DISEASE/HEART PROBLEMS N KIDNEY DISEASE N MULTIPLE SCLEROSIS N CANCER: SPECIFY N CARDIAC ARRHYTHMIA N ATRIAL FIBRILLATION N Gall Stones N [...] Vaccine, Product Unknown 1 completed Not Available [facility] 08/04/2022 05:34:04 COVID-19 Non-US Vaccine, Product Unknown 1 completed Not Available [facility] 08/04/2022 05:34:04 pneumococcal polysaccharide PPV23 3 completed Not Available [facility] 08/04/2022 05:34:04 Pneumococcal conjugate PCV 13 1 completed Not Available [facility] 08/04/2022 05:34:04 Past Encounters Encounter ID Performer Location Encounter Start Date Encounter Closed Date Diagnosis/Indication Diagnosis SNOMED-CT Code Diagnosis ICD10 Code Diagnosis Note [id number] Richie Laird MD [facility]_G Internal [facility] 24 2043 [facility] 24 [place] [address] 06/10/2020 00:00:00 06/10/2020 16:17:04 [id number] Fer Kumari MD S_G [address] [address] 07/11/2020 00:00:00 08/18/2020 19:40:58 [id number] [facility]_Histor ic_Gateway _[facility]_ IGRATION_ DEFAULT_1 _1 , 08/09/2020 00:00:00 08/13/2020 10:35:01 [id number] MD GERTRUDE [facility] [place] [address] [place] [address] 08/19/2020 00:00:00 08/19/2020 16:31:14 [id number] MD GERTRUDE [facility] [place] [address] [place] [address] 09/13/2020 00:00:00 09/14/2020 20:19:20 [id number] Richie Laird MD [facility] Internal Med [facility] [address] [address] 10/21/2020 00:00:00 10/21/2020 17:29:21 [id number] MD RENETTA [facility] [place] [address] [place] [address] 03/07/2021 00:00:00 03/07/2021 16:20:19 [id number] Richie Laird MD [facility] Internal Med [facility] [address] [address] 04/21/2021 00:00:00 04/21/2021 16:38:47 [id number] Fer Kumari MD S_GMG [address] [address] 05/15/2021 00:00:00 05/15/2021 14:26:39 [id number] Fer Kumari MD Corrie_GMG [address] [address] 06/26/2021 00:00:00 06/26/2021 15:25:23 [id number] MD RENETTA Ellis_GMG [address] [address] 08/14/2021 00:00:00 08/14/2021 14:42:10 [id number] MD RENETTA Ellis_GMG [address] [address] 09/11/2021 00:00:00 09/11/2021 15:13:22 [id number] [facility]_Histor ic_Gateway [facility] Podiatry [place] [address] [place] [address] 09/29/2021 00:00:00 09/29/2021 15:58:20 [id number] Richie Laird MD S_GMG Internal Med [place] [address] [address] 10/20/2021 00:00:00 10/20/2021 16:08:10 [id number] Fer Kumari MD S_GM[address] [address] 10/30/2021 00:00:00 10/30/2021 13:02:50 [id number] _ATHN_MIGR ATION_1 _ATHENA_M IGRATION_ DEFAULT_1 _1 , 11/12/2021 00:00:00 11/12/2021 13:03:33 [id number] Richie Laird MD S_GMG Internal Med [place] [address] [address] 03/09/2022 00:00:00 03/09/2022 16:16:25 [id number] eFr Kumari MD [facility]_GM[address] [address] 08/06/2022 14:30:42 08/06/2022 15:50:22 Pain of left shoulder joint [id number] 9439901 M25.512 [id number] Fer Kumari MD S_GM[address] [address] 08/20/2022 14:10:14 08/31/2022 09:25:06 Pain of left shoulder joint 8598803490 8020909 M25.512 M75.02 [id number] Richie Laird MD S[facility] [address] [facility] [address] 09/07/2022 15:37:32 09/07/2022 16:15:33 Coronary arteriosclerosis 71749946 I25.10 Essential hypertension 10627905 I10 Hypercholesterolemia 136 34354 E78.00 Gastroesop hageal reflux disease 562930072 K21.9 Chronic pain syndrome 37 6192684 G89.4 Long-term current use of opiate analgesic drug 7445507149 28348 Z79.737 [id number] Fer Kumari MD [facility] [address] [place] [address] 9 12/03/2022 14:34:17 12/03/2022 15:06:55 Adhesive capsulitis of left shoulder 1491899977 42240 M75.02 [id number] Fer Kumari MD [place] [address] 01/14/2023 14:52:38 01/14/2023 15:40:42 Adhesive capsulitis of left shoulder 9437949365 42648 M75.02 [id number] Richie Laird MD [facility] Internal Med [facility] [address] [place] [address] 03/08/2023 15:52:44 03/08/2023 16:21:18 Chronic pain syndrome 802862356 G89.4 Coronary arteriosclerosis 27853047 I25.10 Essential hypertension 49938386 I10 Hypercholesterolemia 136 24184 E78.00 Osteoporosis 38845877 M8 1.0 [id number] Richie Laird MD [facility] Internal Med [facility] [address] [address] 04/07/2023 15:47:39 04/07/2023 16:28:04 Adult health examination 232697529 Z00.00 Screening for disorder 784435576 Z13.9 Coronary arteriosclerosis 98291384 I25.10 Essential hypertension 31884484 I10 Peripheral vascular disease 920964824 I73.9 Hypercholesterolemia 136 25953 E78.00 [id number] Richie Laird MD [facility] Internal Med [facility] [address] [address] 07/05/2023 14:54:04 07/05/2023 15:40:39 Coronary arteriosclerosis 14190562 I25.10 Essential hypertension 85992073 I10 Hypercholesterolemia 136 39193 E78.00 Peripheral vascular disease 887788590 I73.9 Left carot id artery stenosis 6923045426 48965 I65.22 [id number] Sohail Harrison DPM S_GMG Podiatry [place] [address] [place] [address] 09/09/2023 14:40:15 09/29/2023 16:17:14 Dystrophia unguium 33593357 L60.3 nails debrided without incident Ingrowing nail of toe of left foot 8329004093 0008153 L60.0 left great toe incurvated slant back procedure performedF ollow-up as needed [id number] Richie Laird MD S_G Internal Med [place] [address] [address] 11/08/2023 14:59:48 11/08/2023 15:38:02 Coronary arteriosclerosis 47915946 I25.10 Essential hypertension 07227985 I10 Peripheral vascular disease 470382140 I73.9 Hypercholesterolemia 136 38154 E78.00 [id number] Richie Laird MD [facility] [place] [address] [address] 12/22/2023 15:12:17 12/22/2023 15:52:06 Pain of right upper arm 5673011885 66320 M79.475 [id number] Richie Laird MD [facility] [place] [address] [address] 03/13/2024 15:10:01 03/13/2024 15:31:53 Coronary arteriosclerosis 71568001 I25.10 Essential hypertension 91233917 I10 Left carot id artery stenosis 1311117677 08707 I65.22 Peripheral vascular disease 902609131 I73.9 Hypercholesterolemia 136 21558 E78.00 [id number] Richie Laird MD S[place] [place] [address] [address] 08/21/2024 15:59:08 08/21/2024 16:30:26 Coronary arteriosclerosis 47661089 I25.10 Essential hypertension 31116784 I10 Hypercholesterolemia 136 41040 E78.00 Peripheral vascular disease 234023293 I73.9 Ventricula r tachycardia 09681342 I47.20 General ex amination of patient 324885734 Z00.00 Health Concerns Section Related Observation LastModified by Organization Detai ls LastModified Time None Recorded Concern Status LastModified by Organization Details LastModified Time None Recorded Advance Directives Directive N: Info given Payers Insurance Date Sequence Insurance Name Policy Number Policy Meadows Covered Member ID Meadows Member ID Guarantor Name 08/28/2024 2 [facility] (MEDICAID HMO) [id number] Odalis Gonzalez Lucie [id number] Odalis Gonzalez Lucie 08/21/2024 1 [facility] (MEDICARE REPLACEMENT/AD VANTAGE - PPO) [id number] Odalis Judget [id number] Odalisadalgisa Wilkinsrest 08/21/2024 2 [place] [facility] Odalis Judget [id number] Odalis Wilkinsrest 08/21/2024 1 [place] Odalis uJdget [id number] Odalis Gonzalez Lucie 08/25/2024 [facility] (MEDICAID HMO) [id number] Odalis Gonzalez Lucie [id number] Odalis Gonzalez Lucie 08/25/2024 2 [facility] WHEN MEDICARE OR MEDICARE REPLACEMENT PRIMARY) Odalis Gonzalez Lucie [id number] Odalis Judget Notes Date Note Type Note Provider Name and Address Organization Details Recorded Time 4 text/html . Patient is a 68-year-old female [...] denies any other complaints. Sohail Harrison DPM [address] [place] [address], [facility] [address], [place], [address], [facility] [employer] [facility] 09/29/2023 15:40:49 4 text/html Patient Name: Odalis ForrestDate Of Service: Wednesday ( 11.08.2023 ): [...] Systemic Symptoms:none Medication Reconciliation: from medication list. Sruvctltdew56/02/2023: Echocardiogram demonstrates an estimated ejection fraction of [...] 5 MG TABLET One Daily Vaccination and Dlodwfxgaahy2703-68 Sodycgaou4548-12 Prevnar 13 Ly5131-15 [employer] Surgical Umpvggv8328-10 CABG Sutures Prrqjur4123-51 Two Coronary Mnsxcz3274-18 Right Iliac Xjmou3061-33 WPAD4273-40 Left Ziyousmzpphisbprxbfih7091-8 0 Left Carotid Btbejwufgeavul8055-69 Cholecystectomy Preventative Testing( ) 07/16/2023 Mammogram 07/15/2025( ) 06/04/2023 DEXA Scan 06/03/2025( ) 03/29/2023 Albumin 4.5 G/DL H( ) 11/26/2021 Colonoscopy ( 7 Years ) 11/26/2028( ) 12/20/2020 Ultrasound Carotids (50-69% RT. ICA)* 02/19/2025 Social HistorySmokes 5 cigarettes daily and has done so since shewas 16 y/o. Does drink socially. 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 Family HistoryMother in her 60's has CA of pancreas.Father at 68 [place].Has one brother and sister in good health although brother has had diverticulitis. Richie Laird MD [address] [facility], [facility] [address], [place], [address], [place] [facility] [email or web address] 11/08/2023 15:31:24 4 text/html Patient Name: Odalis FormitultDate Of Service: Wednesday ( 12.22.2023 ): 1955 [...] ) 2020-09 PREVNAR 13 GC(X) 2020-06 COVID [facility] Ijfywyx8191-80 CABG Sutures Ohfubtf0389-23 Two Coronary Vtgdtd4538-47 Right Iliac Udabi2097-58 TZZM2440-21 Left Jheedesdgcxcxomlgrkdn4022-3 0 Left Carotid Bwtivfyimtacoc5043-91 Cholecystectomy Preventative Testing( ) 07/16/2023 Mammogram 07/15/2025( ) 06/04/2023 DEXA Scan 06/03/2025( ) 03/29/2023 Albumin 4.5 G/DL H( ) 11/26/2021 Colonoscopy ( 7 Years ) 11/26/2028( ) 12/20/2020 Ultrasound Carotids (50-69% RT. ICA)* 02/19/2025 Social HistorySmokes 5 cigarettes daily and has done so since shewas 16 y/o. Does drink socially. 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 Family HistoryMother in her 60's has CA of pancreas.Father at 68 [place].Has one brother and sister in good health although brother has had diverticulitis. Richie Laird MD [address] [place] [address], [place] [address], [place], [address], [facility] [email or web address] 12/22/2023 15:45:12 5 text/html Patient Name: Odalis ForrestDate Of Service: Wednesday ( 03.13.2024 ): [...] and fever Medication Reconciliation: from medication list. Tnuozkhcysm42/02/2023: Echocardiogram demonstrates an estimated ejection fraction of [...] PREVNAR 13 GC( ) 2022-03 PNEUMOVAX Surgical Lvdvkyj4757-61 CABG Sutures Qpmljcf6264-36 Two Coronary Qggcfr5424-70 Right Iliac Dcpwz0003-74 CQQG9002-98 Left Hfxkjttyvhqfaypmmklmq8207-7 0 Left Carotid Ogphyllyilnkpm4205-28 Cholecystectomy Preventative Testing( ) 01/07/2024 CT Thorax( ) 07/16/2023 Mammogram 07/15/2025( ) 06/04/2023 DEXA Scan 06/03/2025( ) 03/29/2023 Albumin 4.5 G/DL H( ) 11/26/2021 Colonoscopy ( 7 Years ) 11/26/2028(X) 12/20/2020 Ultrasound Carotids (50-69% RT. ICA)* 12/20/2020 Social HistorySmokes 5 cigarettes daily and has done so since shewas 16 y/o. Does drink socially. 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 Family HistoryMother in her 60's has CA of pancreas.Father at 68 rom [place].Has one brother and sister in good health [...] 0.20-1.30 MG/DLCALCIUM 10.4 8.4-10.2 MG/DLLIPID PANEL Date: 4CHOLESTEROL 252 140-199 MG/DLTRIGLYCERIDES 191 0-150 MG/DLHDL CHOLESTEROL 73 40- MG/DLLDL CHOLESTEROL, CALCULATED 141 0-130 MG/DLT4 FREE Date: 03/29/2023FREE T4 0.93 0.78-2.19 NG/DLTSH Date: 03/29/2023THYROID-STIMULATI NG HORMONE 0.623 0.465-4.680 UIU/ML Richie Laird MD [address] [facility], [facility] [address], [place], [address], [place] [facility] [email or web address] 03/13/2024 15:18:42 5 text/html Patient Name: Odalis ForrestDate Of Service: Wednesday ( 08.21.2024 ): 1955 Age: 69 There has been approximately a 8 lb weight loss since 03/13/2024. This represents approximately a 7.7% change in weight. Weight change attributable to lifestyle changes. Vital Signs:Blood Pressure: Sitting Rt. Arm 148/80Pulse: Sitting 84 /min and RegularRespiratory Rate: 16Height 63.5 in or 1.6 mWeight 96 lb or 43.5 kgBMI 16.7Temperature: 97 F or 36.1 CPulse Oximetry: 96 % at rest on no oxygen Chief Complaint: Addressed in HPI Problems or conditions discussed in the HPI were the only ones reviewed during the encounter.Only social and family history addressed in the HPI were reviewed during this encounter. A significant, separate E/M service was performed to evaluate the current and new problems. Attendants(s) + NoneConstitutional and Systemic Symptoms:none Medication Reconciliation: from medication list. Soybkqnenkb90-02-6381: Pharmacological stress test showed a normal ECG [...] study essentially normal no nerve significant damage. 06-29-2024: Ultrasound of the thyroid showed multinodular goiter with no nodules currently meeting criteria ofr biopsy but for which annual ultrasound follow-up would be recommended History of Present Illness Reviewed the findings of the preventative health visit. Addressed all areas with the patient, patient's family or caregivers. Preventative examinations and testing immunizations - vaccinations, mammograms and DEXA Scan all reviewed and ordered where patient was amenable to the recommendations. Cognitive function see HPI but demonstrated no overall change in cognitive status . Depression addressed and where necessary medications were adjusted or instituted. End of life and living will briefly discussed with patient and where these can be filled out and legally executed. Other blood and imaging studies were ordered if considered necessary. Other recommendations may be found in the encounter note. #1. Coronary Artery Disease: There has been no change in frequency - duration - intensity in frequency, duration or intensity of chest pain. Other Complaints: none The frequency of anginal attacks is none at all. Additional Symptoms: none Therapy reviewed regarding cardiovascular management includes Amlodipine, Eliquis, Leqvio, Lisinopril and Toprol Xl #2. Essential Hypertension: Stage: Stage I Interval [...] includes salt restriction and Amlodipine, Lisinopril and Toprol Xl. #3. Type II Hypercholesterolaemia: Currently taking medication and tolerating well. No interval complaints of any muscle pain or arthralgia. No significant liver changes with medications. Last lipid panel: fair control. Therapy reviewed regarding treatment of cholesterol management and include diet and Leqvio. #4. Hx of peripheral vascular disease. There has been no increase in intensity, severity or duration of claudication symptoms. Exertional capacity has remained essentially unchanged. Is able to walk less than 100 feet without developing any claudication. No rest pain noted. #5. History of ventricular tachycardia status post recent ablation procedure. No interval complaints of any syncope or presyncopal type symptoms.: Wellness Evaluation PHQ-2 Score Last Two Weeks Last Two Weeks: 0: Not at all 1: Several Days 2: More than half 3: Almost Every day #1. Little interest or pleasure in doing things: Not At All :Score 0#2. Feeling down, depressed, or hopeless: Not At All :Score 0Score 0FAST Stage: 1 No functional decline Basic ADLS Ambulation Normal YesEating YesBed Transfer YesWalker NoCane NoFalls NoMultiple Falls NoBathing and Showering YesDressing YesFeeding YesFunctional Mobility YesPersonal Hygiene YesToilet Hygiene YesHome Safety Yes Instrumental ADLS House Work YesTaking Medications YesShopping YesTelephone YesUsing Technology YesTransportation YesPreparing Meals Yes Additional Topics Advanced Directives DeclinedLiving Will Declined Mini Mental Status Exam OrientationYear 1Season 1Month 1Date 1Day 1Score: 5 LocationCountry 1County 1City 1Facility 1Room 1Score: 5 RegistrationHouse 1Car 1Airplane 1Score: 3 AttentionD 1L 1R 1O 1W 1Score: 5 RecallHouse 1Car 1Airplane 0Score: 2 LanguageWatch 1Pencil 1Score: 2 RepetitionNo ifs, ands or buts 1Score: 1 SentenceWrite a Sentence 1Score: 1 ReadingClose Eyes 1Score: 1 PentagonsCopy Design 0Score: 0 CommandHand 1Fold In Half 1Put Down 1Score: 3 Total Test Score: 28 /30 Normal Possible Functional ImpairmentActivities of Daily Living: Probably NormalCommunication: Probably NormalMemory: Probably Normal Social and Physical Activities Drinking History: NoneExercise 20 Minutes per Week: No, do not exercise muchDifficulty Driving Car: NoOther Problems: None,Falling,Orthostatic,Tr ouble Eating,Teeth Denture Problems,Problems using Telephone,Tiredness or fatigue Smoking History Has Cut BackCannabis History Does Not Use End Of Wellness Section Active Medication ListXanax .5 MG TABLET One Qid For AnxietyNorco 325 MG-5 MG (TABLET - ORAL) One Four Times A DayToprol Xl 25 MG TABLET, EXTENDED RELEASE One DailyEliquis 5 MG TABLET, FILM COATED One Twice A DayMagnesium Oxide 400 MG TABLET Once Twice A DayLeqvio Twice YearlyProlia 60 MG/ ML (INJECTABLE - SUBCUTANEOUS) Q 6 MonthsOs-maria eugenia D 500MG DailyVitamin D 200MG DailyLisinopril 20 MG (TABLET - ORAL) One DialyAmlodipine 10 MG TABLET One Daily Adverse Drug Reactions ReviewedNo Known Adverse Drug Reactions! Vaccination and Immunization (X) 2020-06 COVID [employer]( ) 2020-09 PREVNAR 13 GC( ) 2022-03 PNEUMOVAXImmunizations and Vaccinations Discussed and Implemented if feasible In the Office. Else referred to pharmacies. Surgical History 2024-06 Ventricular Tachycardia Siainfhc7976-05 CABG Sutures Kydwaoa3331-09 Two Coronary Ihgedx3966-44 Right Iliac Veapo3830-81 UJNZ1561-08 Left Carotid yhgbkaxdnmuowo0506-41 Cholecystectomy Preventative Testing ( ) 05/06/2024 Albumin 4.3 G/DL N( ) 01/07/2024 CT Thorax( ) 07/16/2023 Mammogram 07/15/2025( ) 06/04/2023 DEXA Scan 06/03/2025( ) 11/26/2021 Colonoscopy ( 7 Years ) 11/26/2028Preventative Testing Discussed and Scheduled if Acceptable to Patient Social HistorySmokes 5 cigarettes daily and has done so since shewas 16 y/o. Does drink socially. 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 Family HistoryMother in her 60's has CA of pancreas.Father at 68 rom [place].Has one brother and sister in good health although brother has had diverticulitis. TEST RESULT RANGE UNITSCBC (INCLUDES DIFF/PLT) Date: 05/06/2024WHITE BLOOD CELL COUNT 5.5 3.8-10.8 THOUSAND/ULHEMOGLOBIN 11.8 11.7-15.5 G/DLHEMATOCRIT 36.1 35.0-45.0 %PLATELET COUNT 296 140-400 THOUSAND/ULCOMPREHENSIVE METABOLIC PANEL Date: 05/06/2024SODIUM 137 135-146 MMOL/LPOTASSIUM 4.1 3.5-5.3 MMOL/LGLUCOSE 90 65-99 MG/DLUREA NITROGEN (BUN) 16 7-25 MG/DLCREATININE 1.03 0.50-1.05 MG/DLEGFR 59 > OR = 60 ML/MIN/1.45V0MFUNTWDXM, TOTAL 0.4 0.2-1.2 MG/DLALKALINE PHOSPHATASE 46 37-153 U/LAST 15 10-35 U/LALT 12 6-29 U/LLIPID PANEL, STANDARD Date: 05/06/2024TRIGLYCERIDES 116 <150 MG/DLLDL-CHOLESTEROL 138 MG/DL (CALC)CHOLESTEROL, TOTAL 221 <200 MG/DLHDL CHOLESTEROL 60 > OR = 50 MG/DLT4, FREE Date: 05/06/2024T4, FREE 1.2 0.8-1.8 NG/DLTSH Date: 05/06/2024TSH 0.44 0.40-4.50 MIU/L Richie Laird MD [address] [facility], [address], [place], [address], [place] [email or web address] 08/21/2024 16:27:21 OBGyn Episode No OBEpisode recorded.
--- OUTSIDE RECORDS SUMMARY | 2024-09-07 12:00 | XMS_ITS | Clinical Summary ---
Author Organization [facility] Address [address] [place] [id number] Care Team Providers Care Job Coach Name Role Phone Travon Lopez MD Unavailable Vikas Nolasco MD Unavailable Vlad Laird MD Primary Care Provider Sina Mata MD Unavailable [phone] Allergies Active Allergy Reactions Criticality Noted Date Comments Atorvastatin Muscle pain,Other (S ee comments) Medium 03/18/2017 Pitavastatin Muscle pain Medium 01/04/2020 Cqybjrh-Oma-Mbt Reductase Inhibitors Other (See comments),Muscle pain Medium [...] once a week Take on Tuesdays Active inclisiran (Leqvio) 284 mg/1.5 mL syringe Inject 1.5 mL (284 mg total) under the skin every 6 (six) months 03/01/1969 Active metoprolol XL (TOPROL-XL) 25 mg extended release tablet Take 1 tablet (25 mg total) by mouth every morning 05/18/2024 Active apixaban (ELIQUIS) 5 mg tablet Take 1 tablet (5 mg total) by mouth 2 (two) times a day Active lidocaine (LIDODERM) 5 % Place 1 patch on the skin daily as needed for pain Remove & discard patch within 12 hours or as directed by MD. Active Active Problems Problem Noted Date Diagnosed Date S/P ablation of ventricular arrhythmia Ventricular premature beats 07/03/2024 Weakness 11/24/2023 Thyroid nodule 12/21/2022 Assessment & [...] (02/27/2021): Added automatically from request for surgery [id number] Moderate malnutrition 02/06/2021 Abnormal cardiovascular stress test 12/27/2020 Overview (12/27/2020): Added automatically from request for surgery [id number] Encounters Date Type Department Care Team Description 07/18/2024 [facility] Post Discharge Follow up phone call [address] [id number] Cindy Siegel 07/13/2024 9:12 AM CDT Anesthesia Event [facility] Electrophysiology Lab [address] [place] [id number] Kev Martin MD Barnhart, Lynlee Jo, NP 07/13/2024 9:00 AM CDT - 07/13/2024 12:05 PM CDT Surgery [facility] Electrophysiology Lab [address] [place] [id number] Sina Mata MD ABLATION SUPRAVENTRICULAR TACHYCARDIA (SVT) 02897 07/13/2024 6:57 AM CDT - 07/14/2024 2:45 PM CDT Hospital Encounter [address] [address] Sina Mata MD Ventricular premature beats Discharge Disposition: Discharge to home or self care 07/03/2024 Orders Only [facility] Electrophysiology Lab [address] [place] [id number] Sina Mata MD Ventricular premature beats (Primary Dx) from Last 3 Months Surgical History Surgery Date Site/Laterality Comments CAROTID ENARTERECTOMYY SECTION x's 2 ARTERY SURGERY CORONARY ARTERY BYPASS GRAFT HYSTERECTOMY CHOLECYSTECTOMY NOSE SURGERY fracture DILATION AND CURETTAGE OF UTERUS ILIAC VEIN ANGIOPLASTY / STENTING 01/14/2021 CARDIAC ELECTROPHYSIOLOGY PROCEDURE 07/13/2024 N/A Procedure: ABLATION SUPRAVENTRICULAR TACHYCARDIA (SVT) 39997; Surgeon: Sina Mata MD; Location: EP LAB; Service: Cardiovascular; Laterality: N/A; Medical History Medical History Date Comments CAD (coronary artery disease) Hypertension Chest pain Thyroid nodule Anxiety Depression Abnormal cardiovascular stress test 12/27/2020 HLD (hyperlipidemia) UT (myocardial infarction) (HCC) Arrhythmia GERD (gastroesophageal reflux disease) Chronic pain disorder Ventricular premature beats Family History Medical History Relation Name Comments [...] staff should administer the PHQ-9) 0 11/24/2023 PHQ-9 Answer Date Recorded PHQ-9 Total Score 1 11/24/2023 Personal Safety Answer Date Recorded Have you ever been in or are you currently in a harmful physical or emotional relationship or is someone making you feel afraid or unsafe? 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 Gender Identity Not on file Sexual Orientation Not on file Obstetrics History Last Filed Vital Signs Vital Sign Reading Time Taken Comments Blood Pressure 170/70 07/14/2024 11:58 AM CDT Pulse 59 07/14/2024 11:58 AM CDT Temperature 36.4 C (97.5 F) 07/14/2024 11:58 AM CDT Respiratory Rate 20 07/14/2024 11:58 AM CDT Oxygen Saturation 100% 07/14/2024 11:58 AM CDT Inhaled Oxygen Concentration - - Weight 44 kg (97 lb) 07/13/2024 7:48 AM CDT Height 162.6 cm (5' 4) 07/13/2024 7:48 AM CDT Body Mass Index 16.65 07/13/2024 7:48 AM CDT Plan of Treatment Health Maintenance Due Date Last Done Comments Breast Cancer Screening-Mammogram 1955 Colon Cancer Screening-Colonoscopy 1955 Hepatitis C Screening 1955 DTaP/Tdap/Td Vaccine (1 - Tdap) 05/23/1966 Hepatitis B Screening 05/23/1973 Zoster Vaccine (1 of 2) 05/23/2005 Well Visit 65+ 05/23/2020 Covid-19 Vaccine ( season) 10/31/202307/2020, 05/10/2020 Influenza Vaccine (Season Ended) 2024 Depression Screening 11/23/2024 11/24/2023, 11/24/19 24 Osteoporosis Screening-Bone Density Scan 06/10/2025 06/11/2023, 06/04/2023 Fall Risk Assessment 07/14/2025 07/14/2024 Pneumococcal vaccine 65+ Completed 03/09/2022, 09/30 Medical Devices Implanted Type Area Glacing Machine Tender Device Identifier Shelf Expiration Date Model / Serial / Lot [facility] [id number] Cordis Palmaz Debbie 8mm 6/6.5/7fr 36mm 80cm Delivery System Latex Free - [id number] Implanted:Qty: 1 on 01/14/2021 by Travon Lopez MD at [facility] 02/28/2021 [id number] / / [employer] [id number] Synergy Xd Monorail 2.25mm 38mm 144cm Delivery System 1 Access - [id number] Implanted:Qty: 1 on 04/15/2021 by Travon Lopez MD at [facility] [employer] Joshua 09/25/2022 [id number] / / [employer] Joshua [id number] Synergy 3mm 28mm 144cm Radiopaque 1 Access Port Inflation Lumen - [id number] Implanted:Qty: 1 on 04/15/2021 by Travon Lopez MD at [facility] [employer] Joshua 10/10/2021 [id number] 300 / / Procedures Procedure Name Priority Date/Time Associated Diagnosis Comments POCT ACTIVATED CLOTTING TIME, HIGH RANGE Routine 07/13/2024 12:25 PM CDT ABLATION SUPRAVENTRICULAR TACHYCARDIA TREATMENT (SVT) Routine 07/13/2024 12:19 PM CDT Ventricular premature beats POCT ACTIVATED CLOTTING TIME, HIGH RANGE Routine 07/13/2024 11:45 AM CDT POCT ACTIVATED CLOTTING TIME, HIGH RANGE Routine 07/13/2024 11:17 AM CDT POCT ACTIVATED CLOTTING TIME, HIGH RANGE Routine 07/13/2024 10:52 AM CDT POCT ACTIVATED CLOTTING TIME, HIGH RANGE Routine 07/13/2024 10:30 AM CDT PA AN ELECTIVE ENDOTRACHEAL AIRWAY Routine 07/13/2024 9:27 AM CDT from Last 3 Months Results * (ABNORMAL) POC Activated Clotting Time, High Range (07/13/2024 12:25 PM CDT) ACT 162(H) 87 - 138 sec POC Performer [id number] CARLOS BARROS Blood 07/13/2024 12:2 5 PM CDT 07/13/2024 12:25 PM CDT Sina Mata MD LAB BLOOD ORDERABLES Final Result CARLOS [address] [facility] [place] [address] * ABLATION SUPRAVENTRICULAR TACHYCARDIA TREATMENT (SVT) (07/13/2024 12:19 PM CDT) Anatomical Region Laterality Modality X-Ray Angiograph y Narrative 07/13/2024 1:03 PM CDT Table formatting from the original result was not included. Images from the original result were not included. Cardiac electrophysiology and ablation procedure in right and left heart catheterization Note Surgical Team: Surgeons and Role: * Sina Mata MD - Primary Anesthesiologist: Kev Martin MD MANAGER PACKAGE: Fer Tompkins CRNA CV Documenter: Amalia Doe RN; Marixa Byrnes RN CV Scrub: Darlyn Vides, RT; David Martin; Rosario Medrano [facility] Cma: Jonelle Huynh RN; Ivana Figueredo RN DATE OF SURGERY : 07/13/2024 Preoperative Diagnosis: Pre-op Diagnosis * Ventricular premature beats [I49.3] Postoperative Diagnosis: Post-op Diagnosis * Ventricular premature beats [I49.3] Nonsustained VT Procedure(s): ABLATION VENTRICULAR TACHYCARDIA (VT) INCLUDES 3D MAPPING (WHEN USED) 59340 (N/A) TRANSSEPTAL PUNCTURE FOR VT ABLATION 76463 INTRACARDIAC ECHOCARDIOGRAM (+) 03272 ABLATION SEPARATE LINE PLACEMENT DUE TO SCAR RELATED VENTRICULAR REENTRY TACHYCARDIA ABLATION IN THE LEFT VENTRICLE 85787 (N/A) RIGHT AND LEFT HEART CATHETERIZATION WAS DONE Details of procedure: The patient was brought to cardiac electrophysiology laboratory at [facility] in [place] after informed consent was obtained. Area in both groins and right neck was sterilely prepped and draped in usual fashion. Access to the right internal jugular vein was done using modified Seldinger technique and a 6 Cook Islander sheath was inserted under ultrasound and fluoroscopy guidance. A decapolar catheter was inserted to the central circulation positioned coronary sinus. An 8 [place] Islander sheath were inserted to the right femoral vein and 8 [place] Islander sheath was surgery left femoral vein. . Intracardiac echo probe was inserted to the central circulation position in the right atrium at interatrial septum was visualized. 3.5 mm irrigated Q dot mapping/ablation catheter was advanced to the central circulation Heparin was administered with goal to keep ACT higher than 250 due to plan to do left ventricular mapping and ablation. Transseptal puncture was done using BRK needle under ultrasound fluoroscopy guidance. Sheath was advanced to the central circulation under fluoroscopy. Initially right atrium and right ventricle. Pressures were measured and were in left atrium and in the left ventricle . Multipolar mapping catheter was advanced into the left ventricle. The voltage map was performed of left ventricle and showed scarring in the mid to distal inferior septum.. 3.5 mm irrigated Q dot FJ catheter was advanced to the left ventricle. The activation of premature ventricular contractions were clinically significant found in the. Ablation not exceeding 50 w and 30 seconds at any single time of ablation was done with temperature impedances monitored throughout the ablation. During the initial ablation in the earliest activation VT was induced and persisted during ablation and finally terminated at the end of ablation in that point. Significant suppression of PVCs and voltage in that area was seen. After that we created a line connected earliest PVC ablation site to the scar inferoseptal area to decrease chance of sustained monomorphic VT No attempt to induce ventricular arrhythmia was done in this patient who was otherwise critical sick It is important point out that on intracardiac echo patient's LV thickness was increased The findings on intracardiac ECHO may be suggests the presence of amyloidosis Pressures in the left ventricle and left atrium and right atrium was done after final ablation was completed pressures were essentially unchanged. Effect of heparin was reversed with protamine. All sheaths and catheters were removed. Patient tolerated procedure well no complications disposition to recovery Electrophysiology (EP) Study Height: 162.6 cm (5' 4) Weight: 44 kg (97 lb) Blood Pressure: 159/84 Heart Rate: 55 Date of Study: 07/13/24 Ordering Provider: Sina Mata MD Clinical Indications: Ventricular premature beats [I49.3 (ICD-10-CM)] Performing Physician Performing Staff Primary: Sina Mata MD CV Documenter: Marixa Byrnes RN CV Scrub: David Martin CV Scrub: Rosario Medrano [facility] Cma: Ivana Figueredo RN CV Scrub: Darlyn Vides RT CV Clinic Cma: Jonelle Huynh RN CV Documenter: Amalia Doe RN Anesthesiology Staff Anesthesiologist: Kev Martin MD MANAGER PACKAGE: Fer Tompkins CRNA Anesthesiologist: Magan Swift Jr., MD Patient Information Patient Name Odalis Sue Legal Sex F 1955 Link to Procedure Log Procedure Log Order-Level Documents No scanned documents Procedures ABLATION SUPRAVENTRICULAR TACHYCARDIA (SVT) 65193 Pre Procedure Diagnosis Ventricular premature beats [I49.3] Post Procedure Diagnosis Conclusion Cardiac electrophysiology and ablation procedure in right and left heart catheterization Note Surgical Team: Surgeons and Role: * Sina Mata MD - Primary Anesthesiologist: Kev Martin MD MANAGER PACKAGE: Fer Tompkins CRNA CV Documenter: Amalia Doe, JOHN; Marixa Byrnse, JOHN CV Scrub: Darlyn Vides RT; David Martin; Rosario Medrano [facility] Clinic Cma: Jonelle Huynh, JOHN; Ivana Figueredo, JOHN DATE OF SURGERY : 07/13/2024 Preoperative Diagnosis: Pre-op Diagnosis * Ventricular premature beats [I49.3] Postoperative Diagnosis: Post-op Diagnosis * Ventricular premature beats [I49.3] Nonsustained VT Procedure(s): ABLATION VENTRICULAR TACHYCARDIA (VT) INCLUDES 3D MAPPING (WHEN USED) [address] (N/A) TRANSSEPTAL PUNCTURE FOR VT ABLATION 94445 INTRACARDIAC ECHOCARDIOGRAM (+) 74619 ABLATION SEPARATE LINE PLACEMENT DUE TO SCAR RELATED VENTRICULAR REENTRY TACHYCARDIA ABLATION IN THE LEFT VENTRICLE 01807 (N/A) RIGHT AND LEFT HEART CATHETERIZATION WAS DONE Details of procedure: The patient was brought to cardiac electrophysiology laboratory at [facility] in [place] after informed consent was obtained. Area in both groins and right neck was sterilely prepped and draped in usual fashion. Access to the right internal jugular vein was done using modified Seldinger technique and a 6 Cook Islander sheath was inserted under ultrasound and fluoroscopy guidance. A decapolar catheter was inserted to the central circulation positioned coronary sinus. An 8 [place]er sheath were inserted to the right femoral vein and 8 [place]er sheath was surgery left femoral vein. . Intracardiac echo probe was inserted to the central circulation position in the right atrium at interatrial septum was visualized. 3.5 mm irrigated Q dot mapping/ablation catheter was advanced to the central circulation Heparin was administered with goal to keep ACT higher than 250 due to plan to do left ventricular mapping and ablation. Transseptal puncture was done using BRK needle under ultrasound fluoroscopy guidance. Sheath was advanced to the central circulation under fluoroscopy. Initially right atrium and right ventricle. Pressures were measured and were in left atrium and in the left ventricle . Multipolar mapping catheter was advanced into the left ventricle. The voltage map was performed of left ventricle and showed scarring in the mid to distal inferior septum.. 3.5 mm irrigated Q dot FJ catheter was advanced to the left ventricle. The activation of premature ventricular contractions were clinically significant found in the. Ablation not exceeding 50 w and 30 seconds at any single time of ablation was done with temperature impedances monitored throughout the ablation. During the initial ablation in the earliest activation VT was induced and persisted during ablation and finally terminated at the end of ablation in that point. Significant suppression of PVCs and voltage in that area was seen. After that we created a line connected earliest PVC ablation site to the scar inferoseptal area to decrease chance of sustained monomorphic VT No attempt to induce ventricular arrhythmia was done in this patient who was otherwise critical sick It is important point out that on intracardiac echo patient's LV thickness was increased The findings on intracardiac ECHO may be suggests the presence of amyloidosis Pressures in the left ventricle and left atrium and right atrium was done after final ablation was completed pressures were essentially unchanged. Effect of heparin was reversed with protamine. All sheaths and catheters were removed. Patient tolerated procedure well no complications disposition to recovery EP /Ablation Findings: PVC was mapped in the left ventricle as described above with good correlation for early activation Nonsustained Ventricular tachycardia was documented that appeared to be scar related and was the same morphology as PVCs Separate ablation was done to connect PVC site ablation placing separate line that connects scar area to the mitral valve annulus One-to-one antegrade AV conduction was documented the patient was paced at 500 milliseconds pace train from the left atrium Left and right heart catheterization findings: Pressures in left ventricle left atrium right ventricle left atrium were measured and recorded in LV pressure was 123 mm Hg/0 millimeters of mercury/36 mm Hg mm Hg left atrium 26 millimeters Hg/0 millimeters Hg/12 millimeters Hg. Mm Hg After pulling the sheath into the right heart pressures were measured Right ventricular pressure 26 mm Hg/ 2 mm / 7 mm Hg , Right atrial pressure was 6 mm Hg/2 mm Hg/4 mm Hg Estimated Blood Loss: Less than 20 cc Intraoperative Fluids: See anesthesia Specimens: No specimen collected in procedure Implants: Nothing was implanted during the procedure Blood/Blood Products Transfused: none Complications: None Condition on Discharge from the operating room was stable Sina Mata MD Date: 07/13/2024 Time: 12:34 PM No Resident involved on case Short postprocedure note Patient underwent EP study with three-dimensional mapping. A decapolar catheter was placed from the right IJ site intra cardiac echo was placed from the left femoral approach and Q Dr. Catheter was placed from the right femoral approach. Right ventricular mapping showed that PVCs were coming from left ventricle. BRK needle was used for transseptal puncture under ultrasound guidance Large curve VIZIGO deflectable sheath was used. Octapolar catheter was used for three-dimensional mapping of left ventricle however patient would go to VT. Mapping octapolar catheter was limited but confirmed that area where PVCs were coming from had scarring Ablation was done in the area of earliest activation with map matching PVCs better than 97% after final ablation that area no PVCs were seen. At that point we albino additional line from the area of ablation to the mitral annulus to decrease chance of ventricular tachycardia reentry if tachycardia would occur in future in area of ablated scar. Pressures in left ventricle left atrium right ventricle left atrium were measured and recorded in LV pressure was 123 mm Hg/0/36 mm Hg mm Hg left atrium 26/0/12. Mm Hg In the RV was 23/2/7 mm Hg In RA 6/2/4. Mm Hg. At the end of procedure effect of heparin was reversed with protamine. All sheaths and catheters were removed hemostasis was obtained manual compression patient tolerated procedure well no complications Plan Bedrest until 7:00 a.m. Medications as per orders I discussed case with the patient's son as per patient's request. I notified Dr. Lopez referring optician about findings of the procedure Ablation Ablation Site: left ventricle. System used: Carto (3D). Catheter inserted successfully. Energy type: radio frequency. Irrigation method: open irrigation cool tip. The ablation procedure was successful. Post ablation rhythm: Sinus bradycardia. Temperature achieved: 35 C. Energy delivered: 50 mcnamara. Impedance: 210 ohms. Duration of energy delivered: 882 seconds. Num of energy applications: 45. There were no compli cations during the procedure. There is no junctional rhythm during energy delivery. EP /Ablation Findings: PVC was mapped in the left ventricle as described above with good correlation for early activation Nonsustained Ventricular tachycardia was documented that appeared to be scar related and was the same morphology as PVCs Separate ablation was done to connect PVC site ablation placing separate line that connects scar area to the mitral valve annulus One-to-one antegrade AV conduction was documented the patient was paced at 500 milliseconds pace train from the left atrium Left and right heart catheterization findings: Pressures in left ventricle left atrium right ventricle left atrium were measured and recorded in LV pressure was 123 mm Hg/0 millimeters of mercury/36 mm Hg mm Hg left atrium 26 millimeters Hg/0 millimeters Hg/12 millimeters Hg. Mm Hg After pulling the sheath into the right heart pressures were measured Right ventricular pressure 26 mm Hg/ 2 mm / 7 mm Hg , Right atrial pressure was 6 mm Hg/2 mm Hg/4 mm Hg Estimated Blood Loss: Less than 20 cc Intraoperative Fluids: See anesthesia Specimens: No specimen collected in procedure Implants: Nothing was implanted during the procedure Blood/Blood Products Transfused: none Complications: None Condition on Discharge from the operating room was stable Sina Mata MD Date: 07/13/2024 Time: 12:34 PM No Resident involved on case Short postprocedure note Patient underwent EP study with three-dimensional mapping. A decapolar catheter was placed from the right IJ site intra cardiac echo was placed from the left femoral approach and Q Dr. Catheter was placed from the right femoral approach. Right ventricular mapping showed that PVCs were coming from left ventricle. BRK needle was used for transseptal puncture under ultrasound guidance Large curve VIZIGO deflectable sheath was used. Octapolar catheter was used for three-dimensional mapping of left ventricle however patient would go to VT. Mapping octapolar catheter was limited but confirmed that area where PVCs were coming from had scarring Ablation was done in the area of earliest activation with map matching PVCs better than 97% after final ablation that area no PVCs were seen. At that point we albino additional line from the area of ablation to the mitral annulus to decrease chance of ventricular tachycardia reentry if tachycardia would occur in future in area of ablated scar. Pressures in left ventricle left atrium right ventricle left atrium were measured and recorded in LV pressure was 123 mm Hg/0/36 mm Hg mm Hg left atrium 26/0/12. Mm Hg In the RV was 23/2/7 mm Hg In RA 6/2/4. Mm Hg. At the end of procedure effect of heparin was reversed with protamine. All sheaths and catheters were removed hemostasis was obtained manual compression patient tolerated procedure well no complications Plan Bedrest until 7:00 a.m. Medications as per orders I discussed case with the patient's son as per patient's request. I notified Dr. Lopez referring optician about findings of the procedure us Sina Mata MD CV ELECTROPHYSIOLOGY PROCS Final Result * (ABNORMAL) POC Activated Clotting Time, High Range (07/13/2024 11:45 AM CDT) ACT 395(H) 87 - 138 sec POC Performer [id number] CERNER CH Blood 07/13/2024 11:4 5 AM CDT 07/13/2024 11:45 AM CDT Sina Mata MD LAB BLOOD ORDERABLES Final Result [facility] BARROS [id number] [place] [address] * (ABNORMAL) POC Activated Clotting Time, High Range (07/13/2024 11:17 AM CDT) ACT 426(H) 87 - 138 sec POC Performer [id number] CARLOS BARROS Blood 07/13/2024 11:1 7 AM CDT 07/13/2024 11:17 AM CDT Sina Mata MD LAB BLOOD ORDERABLES Final Result Performing Organization Address [facility] Co de Phone Number YAYACINTHYA BARROS [phone] [address] [facility] [place] [address] * (ABNORMAL) POC Activated Clotting Time, High Range (07/13/2024 10:52 AM CDT) ACT 445(H) 87 - 138 sec POC Performer [id number] CARLOS BARROS Blood 07/13/2024 10:5 2 AM CDT 07/13/2024 10:52 AM CDT Sina Mata MD LAB BLOOD ORDERABLES Final Result Performing Organization Address City/[facility]/ZIP Co de Phone Number CARLOS BARROS [address] [address] [facility] [place] [address] * (ABNORMAL) POC Activated Clotting Time, High Range (07/13/2024 10:30 AM CDT) ACT 162(H) 87 - 138 sec POC Performer [id number] CARLOS BARROS Blood 07/13/2024 10:3 0 AM CDT 07/13/2024 10:30 AM CDT us Sina Mata MD LAB BLOOD ORDERABLES Final Result CARLOS [address] [address] [place] [address] * PA AN ELECTIVE ENDOTRACHEAL AIRWAY (07/13/2024 9:27 AM CDT) Narrative Fer Tompkins CRNA - 07/13/2024 9:27 AM CDT Fer Tompkins CRNA 07/13/2024 9:29 AM Airway Patient location: OR Urgency: elective Date/time: 07/13/2024 9:15 AM Indications for airway management: anesthesia Difficult airway: no Staff: Placed by: MANAGER PACKAGE: Fer Tompkins CRNA Emergent airway documentation: Risks and benefits discussed: yes Consent obtained: yes Consent given by: patient Airway prep: Preoxygenated: yes Patient position: sniffing MILS maintained throughout: yes Mask difficulty assessment: 1 - vent by mask Spontaneous ventilation during airway: present Sedation level during airway: GA Final airway details: Final airway type: endotracheal airway Tube type: ETT ETT size: 7.0 mm Cuffed: yes Technique used for successful ETT placement: video laryngoscopy Insertion site: oral Blade type: Micaela Video blade type: Guaman Blade size: 3 Cormack-Lehane (video): grade I - full view of glottis Initial cuff pressure: 10 cm H2O Cuff volume: 10 mL Cuff inflated with: air ETT to lips: 20 cm Placement verified by: CO2 detection Airway secured with: silk tape Number of attempts: 1 Ventilation between attempts: BVMno us Kev Martin MD ANESTHESIA ORDERABLES Final Result from Last 3 Months Insurance [place] [address] [facility] MEDICARE ADVANTAGE [facility] MEDICARE Address: [address] [address] [place] [address] [facility] MEDICARE ADVANTAGE 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 FINANCIAL/MEDICAL * Full Code (Latest Code Status on File) Date Activated Date Inactivated Comments 07/14/2024 7:08 AM 07/14/2024 7:05 PM * Full Code Date Activated Date Inactivated Comments 11/24/2023 10:50 PM 11/25/2023 10:12 PM * Full Code Date Activated Date Inactivated Comments 11/24/2023 12:44 PM 11/24/2023 10:50 PM * Full Code Date Activated Date Inactivated Comments 04/15/2021 11:11 AM 04/16/2021 7:16 PM * Full Code Date Activated Date Inactivated Comments 02/05/2021 3:49 PM 02/06/2021 7:52 PM Care Teams Job Coach Relationship Specialty Start Date End Date Vlad Laird MD [address] [facility] [address] [place] [address] PCP - General Internal Medicine 11/25/23 Travon Lopez MD [address] [place] [address] Consulting Physician Cardiovascular Disease 02/06/21 Vikas Nolasco MD [address] [place] [address] Consulting Physician Pain Management 07/07/22 Sina Mata MD [address] [place] [address] Consulting Physician Cardiology 07/14/24
--- OUTSIDE RECORDS SUMMARY | 2024-09-07 12:00 | XMS_ITS | Continuity of Care Document ---
Author Organization [facility] Address [address] [facility] [address] [place] [address] Phone Care Team Providers Care Purchasing Assistant Name Role Phone Arellano OD, Vicente Unavailable Unavailable Procedures Procedure Date CL Replacement - Vistakon Disp W/BW Soft [facility] No Charge Laser Post Ops Office/outpatient Visit, Est No Charge Contact Lens Check Office/outpatient Visit, Est Office/outpatient Visit, Est No Charge Contact Lens Check CL Replacement - Vistakon Disp W/BW Soft [facility] Eye Exam & Treatment Refraction CL Replacement - Vistakon Disp W/BW Soft [facility] Eye Exam & Treatment Refraction Advance Directives Directive Yes / No Effective Date File Name No Information Encounters Encounter Description Practice Location Reason(s) For Visit Diagnoses Date Provider Providers Copied on Encounter [facility], [address], [place], [place], [id number], [place] tel:[phone] [facility] No Information Oct- 3-200 9 Arellano OD Vicente. [address] , [address], [place], [address], [place]. tel:[phone] [facility], [address], [place], [place], [address], [place] tel:[phone] [facility] No Information Sep-0 8-200 9 Arellano OD Vicente. [address] , [address], [place], [address], [place]. tel:[phone] [facility], [address], [place], [place], [id number], [place] tel:[phone] [facility] No Information Galindo-2 8-200 9 Krishnasamy Raymond. [address], [place], [address], [place]. tel:[phone] [facility], [address] [place] [address] [address], [place], [place], [address], [place] tel:[phone] [facility] No Information Galindo-1 4-200 9 Arellano OD Vicente. [address] , [address], [place], [place], [facility], [place]. tel:[phone] Office/outpat ient Visit, [facility], [address] [place] [address] [address], [place], [place], [address], [place] tel:[phone] [facility] No Information Andrey-2 0-200 9 Arellano OD Vicente. [address] , [address], [place], [address], [place]. tel:[phone] Office/outpat ient Visit, [facility], [address] [place] [address] [address], [place], [place], [address], [place] tel:[phone] [facility] No Information May-3 0-200 9 Arellano OD Vicente. [address] , [address], [place], [address], [place]. tel:[phone] [facility], [address], [place], [place], [address], [place] tel:[phone] [facility] No Information May-2 2-200 9 Arellano OD Vicente. [address] , [address], [place], [address], [place]. tel:[phone] [facility], [address] [place] [address] [address], [place], [place], [address], tel:[phone] [facility] No Information 4-200 9 Arellano OD Vicente. [address], [address], [place], [place], [facility], [place]. tel:[phone] [facility], [address] [place] [address] [address], [place], [place], [address], tel:[phone] [facility] [place] No Information 8-200 9 Arellano OD Vicente. [facility], [address], [place], [place], [facility], [place]. tel:[phone] [facility], [address] [place] [address] [address], [place], [place], [address], [place] tel:[phone] [facility] No Information 2-200 8 Arellano OD Vicente. [facility], [address], [place], [address], [place]. tel:[phone] [facility], [address] [place] [address] [address], [place], [place], [address], tel:[phone] [facility] No Information 0-200 8 Arellano OD Vicente. [facility] , [address], [place], [address], [place]. tel:[phone] Family History Family Member Type Diagnosis Age At Onset No Information Payers Payer name Insurance type Covered libertarian ID Authoriza tion(s) No Information Social History [...]
--- OUTSIDE RECORDS SUMMARY | 2024-09-07 12:00 | XMS_ITS | Encounter Summary ---
Author Organization [facility] Healthcare Address [address] [place] [address] Care Team Providers Care Manager Entry Name Role Phone Travon Lopez MD Unavailable Unknown, Notinfile Primary Care Provider Unavail able Vikas Nolasco MD Unavailable Vlad Laird MD Primary Care Provider Sina Mata MD Unavailable [phone] Reason for Visit * Reason Onset Date Comments Med Refill 08/25/2022 Pt inquired if t he prescription for flexeril was refilled. Left message to inform her that it was sent to her pharmacy. 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 Gender Identity Not on file Sexual Orientation Not on file documented as of this encounter Plan of Treatment Not on file documented as of this encounter Visit Diagnoses Not on filedocumented in this encounter Care Teams Manager Entry Relationship Specialty Start Date End Date Unknown, Notinfile PCP - General 02/06/21 11/24/23 Vlad Laird MD [address] [facility] [address] [place] [address] PCP - General Internal Medicine 11/25/23 Travon Lopez MD [address] [place] [address] Consulting Physician Cardiovascular Disease 02/06/21 Vikas Nolasco MD Consulting Physician Pain Management 07/07/22 Sina Mata MD [address] [place] [address] Consulting Physician Cardiology 07/14/24 documented as of this encounter
--- OUTSIDE RECORDS SUMMARY | 2024-09-07 12:00 | XMS_ITS | Referral Summary ---
Author Organization [facility] Address [address] [place] [address] Care Team Providers Care Director Of Religious Activities Name Role Phone Travon Lopez MD Unavailable Vikas Nolasco MD Unavailable Vlad Laird MD Primary Care Provider Sina Mata MD Unavailable [phone] Encounters Date Type Department Care Team Description 07/18/2024 [facility] Post Discharge Follow up phone call [address] [address] [place] Cindy Manzanoarmin 07/13/2024 6:57 AM CDT - 07/14/2024 2:45 PM CDT Hospital Encounter [address] [address] Sina Mata MD Ventricular premature beats Discharge Disposition: Discharge to home or self care 07/13/2024 9:00 AM CDT - 07/13/2024 12:05 PM CDT Surgery [facility] Electrophysiology Lab [address] [place] [id number] Sina Mata MD ABLATION SUPRAVENTRICULAR TACHYCARDIA (SVT) 72614 07/13/2024 9:12 AM CDT Anesthesia Event [facility] Electrophysiology Lab [address] [place] [id number] Kev Martin MD Barnhart, Lynlee Jo, NP 07/03/2024 Orders Only [facility] Electrophysiology Lab [address] [place] [address] Sina Mata MD Ventricular premature beats (Primary Dx) from Last 3 Months Allergies Active Allergy Reactions Criticality Noted Date Comments Atorvastatin Muscle pain,Other (S ee comments) Medium 03/18/2017 Pitavastatin Muscle pain Medium 01/04/2020 Bxpczda-Fsb-Wea Reductase Inhibitors Other (See comments),Muscle pain Medium [...] (02/27/2021): Added automatically from request for surgery [id number] Moderate malnutrition 02/06/2021 Abnormal cardiovascular stress test 12/27/2020 Overview (12/27/2020): Added automatically from request for surgery [id number] Social History Tobacco Use Types Packs/Day Years [...] on file 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 Gender Identity Not on file Sexual Orientation [...] 07/13/2024 7:48 AM CDT Plan of Treatment Not on file Medical Devices Implanted Type Area Engraver Seals Device Identifier Shelf Expiration Date Model / Serial / Lot [facility] Supply [id number] Cordis Palmaz Debbie 8mm 6/6.5/7fr 36mm 80cm Delivery System Latex Free - [id number] Implanted:Qty: 1 on 01/14/2021 by Travon Lopez MD at [facility] 02/28/2021 [id number] / / [employer] [id number] Synergy Xd Monorail 2.25mm 38mm 144cm Delivery System 1 Access - [id number] Implanted:Qty: 1 on 04/15/2021 by Travon Lopez MD at [facility] [employer] Joshua 09/25/2022 [id number] / / [employer] Joshua [id number] Synergy 3mm 28mm 144cm Radiopaque 1 Access Port Inflation Lumen - [id number] Implanted:Qty: 1 on 04/15/2021 by Travon Lopez MD at [facility] [employer] Joshua 10/10/2021 [id number] / / Procedures Procedure Name Priority [...] HIGH RANGE Routine 07/13/2024 10:30 AM CDT AR AN ELECTIVE ENDOTRACHEAL AIRWAY Routine 07/13/2024 9:27 AM CDT from Last 3 Months Results * (ABNORMAL) POC Activated Clotting Time, High Range (07/13/2024 12:25 PM CDT) ACT 162(H) 87 - 138 sec POC Performer [id number] CARLOS BARROS Blood 07/13/2024 12:2 5 PM CDT 07/13/2024 12:25 PM CDT Sina Mata MD LAB BLOOD ORDERABLES Final Result Performing Organization Address City/State/[facility] Co de Phone Number CARLOS [address] Department [place] [address] * ABLATION SUPRAVENTRICULAR TACHYCARDIA TREATMENT (SVT) (07/13/2024 [...] MD - Primary Anesthesiologist: Kev Martin MD CELL COVERER: Fer Tompkins CRNA CV Documenter: Amalia Doe, JOHN; Marixa Byrnes, JOHN CV Scrub: Darlyn Vides, ; David Martin; Rosario Medrano CV Experience Specialist: Jonelle Huynh RN; Ivana Figueredo RN DATE OF SURGERY : 07/13/2024 Preoperative Diagnosis: Pre-op Diagnosis * Ventricular premature beats [I49.3] Postoperative Diagnosis: Post-op Diagnosis * Ventricular premature beats [I49.3] Nonsustained VT Procedure(s): ABLATION VENTRICULAR TACHYCARDIA (VT) INCLUDES 3D MAPPING (WHEN USED) 76151 (N/A) TRANSSEPTAL PUNCTURE FOR VT ABLATION 10294 INTRACARDIAC ECHOCARDIOGRAM (+) 68686 ABLATION SEPARATE LINE PLACEMENT DUE TO SCAR RELATED VENTRICULAR REENTRY TACHYCARDIA ABLATION IN THE LEFT VENTRICLE 42664 (N/A) RIGHT AND LEFT HEART CATHETERIZATION WAS DONE Details of procedure: The patient was brought to cardiac electrophysiology laboratory at [facility] in [place] after informed consent was obtained. Area in both groins and right neck was sterilely prepped and draped in usual fashion. Access to the right internal jugular vein was done using modified Seldinger technique and a 6 Guatemalan sheath was inserted under ultrasound and fluoroscopy guidance. A decapolar catheter was inserted to the central circulation positioned coronary sinus. An 8 Guatemalan sheath were inserted to the right femoral vein and 8 Guatemalan sheath was surgery left femoral vein. . [...] David Martin CV Scrub: Rosario Medrano CV Experience Specialist: Ivana Figueredo RN CV Scrub: Darlyn Vides RT CV Experience Specialist: Jonelle Huynh RN CV Documenter: Amalia Doe RN Anesthesiology Staff Anesthesiologist: Kev Martin MD CELL COVERER: Fer Tompkins CRNA Anesthesiologist: Magan Swift Jr., MD Patient Information Patient Name Odalis Sue Legal Sex F 1955 Link to Procedure Log Procedure Log Order-Level Documents No scanned documents Procedures ABLATION SUPRAVENTRICULAR TACHYCARDIA (SVT) 09886 Pre Procedure Diagnosis Ventricular premature beats [I49.3] Post Procedure Diagnosis Conclusion Cardiac electrophysiology and ablation procedure in right and left heart catheterization Note Surgical Team: Surgeons and Role: * Sina Mata MD - Primary Anesthesiologist: Kev Martin MD CELL COVERER: Fer Tompkins CRNA CV Documenter: Amalia Doe, JOHN; Marixa Byrnes RN CV Scrub: Darlyn Vides RT; David Martin; Rosario Medrano CV Experience Specialist: Jonelle Huynh RN; Ivana Figueredo RN DATE OF SURGERY : 07/13/2024 Preoperative Diagnosis: Pre-op Diagnosis * Ventricular premature beats [I49.3] Postoperative Diagnosis: Post-op Diagnosis * Ventricular premature beats [I49.3] Nonsustained VT Procedure(s): ABLATION VENTRICULAR TACHYCARDIA (VT) INCLUDES 3D MAPPING (WHEN USED) 89999 (N/A) TRANSSEPTAL PUNCTURE FOR VT ABLATION 50803 INTRACARDIAC ECHOCARDIOGRAM (+) 46732 ABLATION SEPARATE LINE PLACEMENT DUE TO SCAR RELATED VENTRICULAR REENTRY TACHYCARDIA ABLATION IN THE LEFT VENTRICLE 39344 (N/A) RIGHT AND LEFT HEART CATHETERIZATION WAS DONE Details of procedure: The patient was brought to cardiac electrophysiology laboratory at [facility] [place] after informed consent was obtained. Area in both groins and right neck was sterilely prepped and draped in usual fashion. Access to the right internal jugular vein was done using modified Seldinger technique and a 6 Guatemalan sheath was inserted under ultrasound and fluoroscopy guidance. A decapolar catheter was inserted to the central circulation positioned coronary sinus. An 8 Guatemalan sheath were inserted to the right femoral vein and 8 Guatemalan sheath was surgery left femoral vein. . [...] patient's request. I notified Dr. Lopez referring supervisor mirror fabrication about findings of the procedure Ablation Ablation [...] patient's request. I notified Dr. Lopez referring supervisor mirror fabrication about findings of the procedure Sina Mata MD CV ELECTROPHYSIOLOGY PROCS Final Result * (ABNORMAL) POC Activated Clotting Time, High Range (07/13/2024 11:45 AM CDT) ACT 395(H) 87 - 138 sec POC Performer [id number] CERNER CH Blood 07/13/2024 11:4 5 AM CDT 07/13/2024 11:45 AM CDT Result [facility] Sina Mata MD LAB BLOOD ORDERABLES Final Result Performing Organization Address [facility] Co de Phone Number CARLOS [address] Department [place] [address] * (ABNORMAL) POC Activated Clotting Time, High Range (07/13/2024 11:17 AM CDT) ACT 426(H) 87 - 138 sec POC Performer [id number] CERNER CH Blood 07/13/2024 11:1 7 AM CDT 07/13/2024 11:17 AM CDT Result [facility] Sina Mata MD LAB BLOOD ORDERABLES Final Result Performing Organization Address [facility] Co de Phone Number CARLOS [address] [address] Department [place] [address] * (ABNORMAL) POC Activated Clotting Time, High Range (07/13/2024 10:52 AM CDT) ACT 445(H) 87 - 138 sec POC Performer [id number] CERNER CH Blood 07/13/2024 10:5 2 AM CDT 07/13/2024 10:52 AM CDT Result [facility] Sina Mata MD LAB BLOOD ORDERABLES Final Result Performing Organization Address [facility] Co de Phone Number CARLOS BARROS [address] [place] [address] * (ABNORMAL) POC Activated Clotting Time, High Range (07/13/2024 10:30 AM CDT) ACT 162(H) 87 - 138 sec POC Performer [id number] CARLOS PAPO Blood 07/13/2024 10:3 0 AM CDT 07/13/2024 10:30 AM CDT us Sina Mata MD LAB BLOOD ORDERABLES Final Result Performing Organization Address [facility] de Phone Number CARLOS BARROS [address] [place] [address] * AR AN ELECTIVE ENDOTRACHEAL AIRWAY (07/13/2024 9:27 AM CDT) Narrative Fer Tompkins CRNA - 07/13/2024 9:27 AM CDT Fer Tompkins CRNA 07/13/2024 9:29 AM Airway Patient location: OR Urgency: elective Date/time: 07/13/2024 9:15 AM Indications for airway management: anesthesia Difficult airway: no Staff: Placed by: SHANDA: Fer Tompkins CRNA Emergent airway documentation: Risks [...] Result from Last 3 Months Insurance MEDICARE [facility] MEDICARE AD[facility]ANT[facility] Address: [address] [address] [place] [address] IDPA [facility] MEDICARE ADVANTAGE Advance Directives For more information, please contact: [phone] Documents on File Type Date 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
--- OUTSIDE RECORDS SUMMARY | 2024-09-07 12:00 | XMS_ITS | Encounter Summary ---
Author Organization [facility] Facility Care Team Providers Care Senior Director Insight Name Role Phone Unknown, Notinfile Primary Care Provider Unavail able Unknown, Notinfile Primary Care Provider Unavail able Travon Lopez MD Unavailable Unknown, Notinfile Primary Care Provider Unavail able Vikas Nolasco MD Unavailable Vlad Laird MD Primary Care Provider Sina Mata MD Unavailable [phone] Encounter Details Date Type Department Care Team (Latest Contact Info) Description 01/01/2016 Orders Only [facility]INCON[facility] ProviderGretel MD [address] [place] [address] Social History Tobacco Use Types Packs/Day Years Used Date Smoking Tobacco: Never Assessed Comments Unknown Sex and Gender Information Value Date Recorded Sex Assigned at Not on file 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 us Gretel Provider Final Res ult documented in this encounter Visit Diagnoses Not on filedocumented in this encounter Care Teams Senior Director Insight Relationship Specialty Start Date End Date Unknown, Notinfile PCP - General 12/27/20 02/04/21 Unknown, Notinfile PCP - General 02/05/21 02/05/21 Unknown, Notinfile PCP - General 02/06/21 11/24/23 Vlad Laird MD [address] [facility] [address] [place] [address] PCP - General Internal Medicine 11/25/23 Travon Lopez MD [address] [place] [address] Consulting Physician Cardiovascular Disease 02/06/21 Vikas oNlasco MD [address] [place] [address] Consulting Physician Pain Management 07/07/22 Sina Mata MD [address] [place] [address] Consulting Physician Cardiology 07/14/24 documented as of this encounter
--- OUTSIDE RECORDS SUMMARY | 2024-09-07 12:00 | XMS_ITS | Encounter Summary ---
Author Organization [facility] Healthcare Address [address] [place] [address] Care Team Providers Care Clinical Quality Assurance Specialist Name Role Phone Travon Lopez MD Unavailable Vikas Nolasco MD Unavailable Vlad Laird MD Primary Care Provider Sina Mata MD Unavailable [phone] Encounter Details Date Type Department Care Team (Late st Contact Info) Description 07/18/2024 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 Gender Identity Not on file Sexual Orientation Not on file documented as of this encounter Plan of Treatment Not on file documented as of this encounter Visit Diagnoses Not on filedocumented in this encounter Care Teams Clinical Quality Assurance Specialist Relationship Specialty Start Date End Date Vlad Laird MD [address] [facility] [address] [place] [address] PCP - General Internal Medicine 11/25/23 Travon Lopez MD [address] [place] [address] Consulting Physician Cardiovascular Disease 02/06/21 Vikas Nolasco MD [address] [place] [address] Consulting Physician Pain Management 07/07/22 Sina Mata MD [address] [place] [address] Consulting Physician Cardiology 07/14/24 documented as of this encounter
== END 2024-09-07 11:55 | disposition home or self-care (01) ==
PROVIDERS: PCP Internal Medicine; Visit Provider Internal Medicine
DX: M25.521 Pain in right elbow (principal); M25.561 Pain in right knee; M25.531 Pain in right wrist; W19.XXXA Unspecified fall, initial encounter
CPT/HCPCS: 73080; 73110; 73562

== ENCOUNTER 2025-01-10 12:36 | Emergency (ER) | payer MEDICARE, MEDICAID, SELFPAY ==
--- NOTE | 2025-01-10 12:38 | ED.GENADULT ---
HPI - General Adult General Chief complaint: Eye Problems Stated complaint: Eye Irritation Source: patient Mode of arrival: ambulatory Limitations: no limitations History of Present Illness HPI narrative: Pt is a 69 y/o female presenting with c/o R. eye irritation. Pt reports unpacking boxes yesterday when she developed a foreign body sensation to the R. eye. Pt states she was wearing contact lenses at time and has since removed the R. contact lens. She denies any tx [facility]. She reports sx have improved since onset. Pt states she is currently wearing her left contact lens--stating she can barely see while wearing her contacts and cannot see anything without her contacts (at baseline). No additional complaints. Related Data Home Medications ?Medication ?Instructions ?Recorded ?Confirmed ?Last Taken ?Type alprazolam 1 mg tablet 1 mg PO BID 05/26/24 06/15/24 Unknown History ascorbic acid-ascorbate calcium 1 tablet PO DAILY 05/26/24 06/15/24 Unknown History 200 mg chewable tablet aspirin 81 mg tablet,delayed 81 mg PO BID 05/26/24 06/15/24 Unknown History release (Judy Low Dose Aspirin) cholecalciferol (vitamin D3) 250 250 mcg PO WEEKLY 05/26/24 06/15/24 Unknown History mcg (10,000 unit) capsule denosumab 60 mg/mL subcutaneous 60 mg subcut [id number] 05/26/24 06/15/24 Unknown History syringe (Prolia) docusate sodium 100 mg capsule 100 mg PO DAILY 05/26/24 06/15/24 Unknown History (Dulcolax Stool Softener (docusate)) lisinopril 20 mg tablet 20 mg PO BID 05/26/24 06/15/24 Unknown History metoprolol succinate 25 mg 25 mg PO DAILY 05/26/24 06/15/24 Unknown History tablet,extended release 24 hr [id number] 8 mg-folic 400 1 tablet PO DAILY 05/26/24 06/15/24 Unknown History mcg-K 50 mcg-lutein 300 mcg tablet (Centrum Silver Women) oxybutynin chloride 5 mg tablet 2.5 mg PO BID 05/26/24 06/15/24 Unknown History amlodipine 10 mg tablet 10 mg PO DAILY 01/09/25 01/09/25 Unknown History ezetimibe 10 mg tablet mg 01/10/25 Unknown History hydrocodone 5 mg-acetaminophen 325 tablet 01/10/25 Unknown History mg tablet Allergies Allergy/AdvReac Type Severity Reaction Status Date / Time statin AdvReac Intermediate Muscle Pain Uncoded 11/28/24 13:57 Review of Systems Review of Systems: CONSTITUTIONAL: Denies body aches, fever, chills, or sweats. EYES: Reports R. eye irritation. Denies visual changes, redness, or discharge. ENT: Denies rhinorrhea, congestion, sore throat, or otalgia. CARDIOVASCULAR: Denies chest pain, palpitations, or edema. RESPIRATORY: Denies cough or dyspnea. GASTROINTESTINAL: Denies abdominal pain, nausea, vomiting, or diarrhea. GENITOURINARY: Denies dysuria or hematuria. SKIN: Denies rash, itching, or wounds. MUSCULOSKELETAL: Denies back pain, joint pain, or myalgia. NEUROLOGIC: Denies headache, numbness, tingling, or weakness. PSYCH: Denies depression or anxiety. All systems reviewed & are unremarkable except as noted in HPI and below PMFSH Past Medical History Medical History Hyperlipidemia Age related osteoporosis Depression Surgical History Surgical History Hx of hysterectomy History of cholecystectomy H/O section Family History Family History Mother Pancreatic cancer Social History Social History Alcohol intake: never Substance use: current Substance use type: marijuana Other substance usage details: gummies once in awhile Do You Feel Safe in your Home?: Yes Lack of Transportation: YES Lack of Food: Never True Current Housing: I Have Housing Concerned About Future Housing: No Difficulty Paying Gas/Electric Bills: No Difficulty Paying for Meds: No Currently Unemployed: YES Education: Associate Degree Difficulty w/ Childcare or Family Care: No Living arrangements: alone Occupation/Education: retired Gender identity (if verbalized by the patient): Female Sexual Orientation (if Verbalized by the Patient): Straight or Heterosexual Spiritual care concerns: No Agree to blood products: Yes Exam Narrative: GENERAL: Well-appearing, well-nourished, and in no acute distress. HEAD: Normocephalic, atraumatic. EYES: EOMI. No redness or drainage. Conjunctivae normal. ENT: Mucous membranes pink and moist. NECK: Normal AROM. Supple. CHEST: No respiratory distress. HEART: Regular rate SKIN: Warm, dry, no rash. Capillary refill normal. Normal skin turgor. NEURO: No focal deficits. Alert and oriented x3. Gait steady. PSYCH: Normal affect. No signs of depression or anxiety. Eyes: Pupils: Equal, round and reactive pupils present EOM: EOMs intact bilaterally Direct Ophthalmoscopy: no photophobia Other: Fluorescein staining of the cornea was performed by first placing a drop of tetracaine on a sterile fluorescein strip. I then gently pulled down on the Right lower lid and gently touching the bulbar conjunctiva with the fluorescein strip. I asked the patient to blink in order to distribute the dye over the ocular surface. No stained corneal epithelial defect noted with the naked eye. I then used a cobalt blue light to enhance visualization. I did not appreciate a staining defect on fluorescein examination. I then irrigated the Right eye with NS via eye wash bottle to remove any remaining fluorescein. Pt tolerated procedure well without immediate complication. Course Course Level of Care: Express Care Visit Vital Signs Vital signs: Vital Signs Temperature 97.4 F L 01/10/25 12:45 Pulse Rate 91 01/10/25 12:45 Respiratory Rate 16 01/10/25 12:45 Blood Pressure 147/87 H 01/10/25 12:45 Pulse Oximetry 98 01/10/25 12:45 Temperature 97.4 F L 01/10/25 12:45 Pulse Rate 91 01/10/25 12:45 Respiratory Rate 16 01/10/25 12:45 Blood Pressure 147/87 H 01/10/25 12:45 Pulse Oximetry 98 01/10/25 12:45 Medical Decision Making MDM Narrative Medical decision making narrative: Discussed elevated blood pressure readings with patient and advised daily BP monitoring and f/u with PCP if persisting. Vital Signs Vital Signs: Vital Signs Temperature 97.4 F L 01/10/25 12:45 Pulse Rate 91 01/10/25 12:45 Respiratory Rate 16 01/10/25 12:45 Blood Pressure 147/87 H 01/10/25 12:45 Pulse Oximetry 98 01/10/25 12:45 Temperature 97.4 F L 01/10/25 12:45 Pulse Rate 91 01/10/25 12:45 Respiratory Rate 16 01/10/25 12:45 Blood Pressure 147/87 H 01/10/25 12:45 Pulse Oximetry 98 01/10/25 12:45 Discharge Plan Discharge Clinical Impression: Eye irritation HTN (hypertension) Qualifiers: Hypertension type: unspecified Qualified Code(s): I10 - Essential (primary) hypertension Patient Disposition: Home Condition: Stable Additional Instructions: follow-up with your eye doctor within the next couple of days. Do not wear your contact lenses until your eye is no longer feeling irritated/you have followed up with eye doctor who instructs otherwise. Go straight to ER should your symptoms become worse or should any new symptoms develop Patient Language: Palauan Prescriptions: No Action hydrocodone-acetaminophen 5-325 mg tablet ezetimibe 10 mg tablet amlodipine 10 mg tablet 10 mg PO DAILY Prolia 60 mg/mL syringe 60 mg subcut [id number] aspirin [Judy Low Dose Aspirin] 81 mg tablet,delayed release (DR/EC) 81 mg PO BID lisinopril 20 mg tablet 20 mg PO BID metoprolol succinate 25 mg tablet extended release 24 hr 25 mg PO DAILY oxybutynin chloride 5 mg tablet 2.5 mg PO BID alprazolam 1 mg tablet 1 mg PO BID Patient Comments: . cholecalciferol (vitamin D3) 250 mcg (10,000 unit) capsule 250 mcg PO WEEKLY Centrum Silver Women 8 mg iron-400 mcg-50 mcg tablet 1 tablet PO DAILY ascorbic acid-ascorbate calc 200 mg tablet,chewable 1 tablet PO DAILY docusate sodium [Dulcolax Stool Softener (dss)] 100 mg capsule 100 mg PO DAILY Follow-up/Referrals: Eitan,Vlad Morfin MD [Primary Care Provider] - 01/11/25 Time of Disposition: 12:57
[2025-01-10 12:45] VITALS: BP 147/87; PULSE 91; RESP 16; TEMP 36.3; O2SAT 98
== END 2025-01-10 13:00 | disposition home or self-care (01) ==
PROVIDERS: Emergency Provider Registered Nurse; PCP Internal Medicine
DX: H57.11 Ocular pain, right eye (principal); I10 Essential (primary) hypertension; E78.5 Hyperlipidemia, unspecified; Z79.899 Other long term (current) drug therapy; Z79.891 Long term (current) use of opiate analgesic
CPT/HCPCS: 99212; A9270; G0463